=== PATIENT | female | born 1960 | race Caucasian/White ===

== ENCOUNTER → 2017-03-15 | Outpatient (CLI) | payer BC ==
[~2017-03-15] MED LIST: /HCTZ25TA GT; ADV250INH INH; ALBU17IN INH; ALBUPOW9 NEB; ATOR40TA PO; BACL10TA2 PO; BACT800T5 PO; CLAR10CA3 PO; CYCL5TA PO; DETR4CAP PO; DIPH50CA GT; FENO145T PO; FLON0.054; FLUTISP; INSULANT SC; LEVEINJ SC; LIPI20TA PO; LOSA50TA20 PO; METF500T PO; MOBI15TA PO; NIASPAN; NICO21PAT EXT; OMEP40CA2 PO; OMEPPOW18 PO; PRED10TA PO; PRED20TA PO; PRED20TAB PO; PROC5TAB PO; ROBA750T4 PO; SYMB16INH INH; TYLE325T5 PO; VENTOLIN INH; VIBR100C PO; VICO5TA PO; VOLT1GEL24 TD; atrovent INH; ventolin INH
[2017-03-15 06:48] LABS: BASO % 0.5 % (0.0-1.0); EOS # 0.2 K/mm3 (0.0-0.50); EOS % 2.8 % (0.0-3.0); LARGE UNSTAINED CELL # 0.2 K/mm3 (0.0-0.4); LARGE UNSTAINED CELL % 2.2 % (0.0-4.0); LYMPH # 3.2 K/mm3 (1.5-4.5); MEAN CORPUSCULAR HEMOGLOBIN 29.3 pg (27.0-33.0); MONO # 0.5 K/mm3 (0.0-0.8); MONO % 5.7 % (0.0-5.0); NEUTROPHILS # 4.2 K/mm3 (1.8-7.7); NEUTROPHILS % 51.8 % (36.0-66.0); PLATELET COUNT, AUTOMATED 373 k/mm3 (150-450); RED CELL DISTRIBUTION WIDTH 13.3 % (11.5-14.5); WHITE BLOOD COUNT 8.1 K/mm3 (4.0-10.0)
[2017-03-15 10:06] LABS: FOLATE 6.5 NG/ML
== END ==
LOC: M LAB 06:15
PROVIDERS: ATTEND Nurse Practitioner Family
DX: R53.83 Other fatigue (principal)

== ENCOUNTER → 2017-03-23 | Outpatient (REF) | payer BC ==
[2017-03-23 13:12] LABS: ALBUMIN 3.8 GM/DL (3.2-5.2); ALBUMIN/GLOBULIN RATIO 1.23 (1.00-1.93); ALKALINE PHOSPHATASE 70 U/L (45-117); ALT/SGPT 22 U/L (12-78); ANION GAP 4 MEQ/L (8-16); AST/SGOT 14 U/L (15-37); BILIRUBIN,TOTAL 0.4 MG/DL (0.2-1.0); BLOOD UREA NITROGEN 13 MG/DL (7-18); CALCIUM LEVEL 9.3 MG/DL (8.5-10.1); CARBON DIOXIDE LEVEL 32 MEQ/L (21-32); CHLORIDE LEVEL 105 MEQ/L (98-107); CHOLESTEROL LEVEL 173 MG/DL (<200); CREATININE FOR GFR 0.87 MG/DL (0.55-1.02); GLOMERULAR FILTRATION RATE > 60.0 (>51); GLUCOSE, FASTING 111 MG/DL (70-105); SODIUM LEVEL 141 MEQ/L (136-145); TOTAL PROTEIN 6.9 GM/DL (6.4-8.2); TRIGLYCERIDES LEVEL 137 MG/DL (<150)
[2017-03-23 13:20] LABS: POTASSIUM SERUM 5.3 MEQ/L (3.5-5.1)
== END ==
LOC: M SFHCPLAZ 08:27
PROVIDERS: ATTEND Nurse Practitioner Family
DX: E11.49 Type 2 diabetes mellitus with other diabetic neurological complication (principal); E78.2 Mixed hyperlipidemia

== ENCOUNTER 2017-04-13 16:06 | Emergency (ER) | payer BC ==
[~2017-04-13] VITALS: Ht 165.1 cm; Wt 77.6 kg
[~2017-04-13 16:06] MED LIST changes: -ATOR40TA PO; +ATOR40TA75 PO; -METF500T PO; +METF500T13 PO; +VOLT1GEL15 TD; -VOLT1GEL24 TD
[2017-04-13] MEDS ORDERED: DOXY100C (16:23)
[2017-04-13] MEDS ORDERED: CITA10TA5 (16:23)
[2017-04-13] MEDS ORDERED: VITA1CAP40 (16:23)
[2017-04-13] MEDS ORDERED: FURO20TA2 (16:23)
[2017-04-13] MEDS ORDERED: FLUC150T (16:23)
[2017-04-13] MEDS ORDERED: FOLI800T (16:23)
[2017-04-13] MEDS ORDERED: TRAZ-136 (16:23)
[2017-04-13] MEDS ORDERED: ACETAMINOPHEN 325 MG/10.15 ML UDC PO ONE (17:15)
[2017-04-13] MEDS ORDERED: ONDANSETRON 4MG/2ML VIAL (J2405) IV ONE (17:15)
[2017-04-13] MEDS ORDERED: NS 500 ML IV ONE (17:15)
[2017-04-13 17:34] LABS: BASO # 0.1 K/mm3 (0.0-0.2); BASO % 0.9 % (0.0-1.0); EOS # 0.1 K/mm3 (0.0-0.50); EOS % 1.5 % (0.0-3.0); LARGE UNSTAINED CELL # 0.2 K/mm3 (0.0-0.4); LARGE UNSTAINED CELL % 2.4 % (0.0-4.0); LYMPH # 4.1 K/mm3 (1.5-4.5); LYMPH % 43.6 % (24.0-44.0); MEAN CORPUSCULAR HEMOGLOBIN 28.8 pg (27.0-33.0); MEAN CORPUSCULAR HGB CONC 33.2 g/dl (32.0-36.5); MEAN CORPUSCULAR VOLUME 86.9 fl (80.0-96.0); MONO # 0.3 K/mm3 (0.0-0.8); MONO % 3.5 % (0.0-5.0); NEUTROPHILS # 4.5 K/mm3 (1.8-7.7); NEUTROPHILS % 48.1 % (36.0-66.0); PLATELET COUNT, AUTOMATED 346 k/mm3 (150-450); RED CELL DISTRIBUTION WIDTH 12.7 % (11.5-14.5); WHITE BLOOD COUNT 9.3 K/mm3 (4.0-10.0)
[2017-04-13 17:37] LABS: INR 0.92
[2017-04-13 17:41] LABS: ALBUMIN 3.8 GM/DL (3.2-5.2); ALBUMIN/GLOBULIN RATIO 1.27 (1.00-1.93); ALKALINE PHOSPHATASE 78 U/L (45-117); ALT/SGPT 26 U/L (12-78); ANION GAP 5 MEQ/L (8-16); AST/SGOT 21 U/L (15-37); BILIRUBIN,DIRECT 0.1 MG/DL (0.0-0.2); BILIRUBIN,TOTAL 0.4 MG/DL (0.2-1.0); BLOOD UREA NITROGEN 7 MG/DL (7-18); CALCIUM LEVEL 9.1 MG/DL (8.5-10.1); CARBON DIOXIDE LEVEL 31 MEQ/L (21-32); CHLORIDE LEVEL 107 MEQ/L (98-107); CREATININE FOR GFR 1.06 MG/DL (0.55-1.02); GLOMERULAR FILTRATION RATE 57.5 (>51); GLUCOSE, FASTING 112 MG/DL (70-105); SODIUM LEVEL 143 MEQ/L (136-145); TOTAL PROTEIN 6.8 GM/DL (6.4-8.2)
--- NOTE | 2017-04-13 17:52 | REP ---
Chest x-ray: Two views: History: Chest pain. Comparison chest x-ray 10/25/2015. Findings: EKG monitoring elect monitoring electrodes are seen. Dorsal column stimulator electrodes are also noted with one extending into the cervical and two electrodes visible in the thoracic canal as before. The heart is not enlarged. Lungs are well inflated and clear. The pleural angles are sharp. Pulmonary vasculature is not increased. There are minimal degenerative changes in the thoracic spine. No significant bony abnormality is seen. There are clips in right upper quadrant of the abdomen. Impression: No active cardiopulmonary disease. Cervical and thoracic dorsal column stimulator leads noted. Signed by Cyril Saldana MD 04/13/2017 06:21 P
[2017-04-13] MEDS ORDERED: ISOVUE-370 76% 100ML VIAL (Q9967) As Ordered ONE (18:23)
--- NOTE | 2017-04-13 19:40 | REPUSA ---
CLINICAL HISTORY: Upper abdominal pain and vomiting. TECHNIQUE: Multiple axial CT images were obtained through the abdomen and pelvis after administratio n of IV contrast material. FINDINGS: There is hepatic hypoattenuation compatible with fatty infiltration. There is no intra or extrahepat ic biliary ductal dilatation. Multiple calcified splenic and hepatic calcified granulomas are noted compatible with prior granulomatous disease. Status post cholecystectomy. The pancreas is of felipe l contour and attenuation characteristics. There is no evidence of adrenal mass. The kidneys are normal in size, shape and configuration. A 5 mm nonobstructing calculus is noted in the midpole of the left kidney. There is no hydroureter or hydronephrosis. There is no evidence for appendicitis. There is circumferential wall thickening involving all small bowel segments compatible with enteritis. Infectious and inflammatory etiologies considered. No ev idence for small or large bowel obstruction. There is no evidence of abdominal ascites or lymphadeno preeti. There is no evidence of intrinsic or extrinsic bladder mass. There is no pelvic ascites or lymphaden opathy. Status post complete hysterectomy. Images of the lung bases show no evidence of pleural or parenchymal mass. There are no pleural effus ions. The bony structures are free of lytic or blastic lesions. IMPRESSION: 1. Enteritis. Infectious and inflammatory etiologies considered. Consider consultation with GI serv ice. 2. Fatty liver. 3. Prior granulomatous disease. 4. 5 mm nonobstructing calculus is noted in the midpole of the left kidney. Thank you for your kind referral of this patient. We appreciate the opportunity to participate in thi s patient's care.
--- NOTE | 2017-04-13 19:40 | REPUSA ---
CLINICAL HISTORY: Chest pain. TECHNIQUE: Multiple incremental axial, coronal and oblique images are obtained from the thoracic inle t to the upper abdomen. Intravenous contrast material was administered as per pulmonary embolism prot ocol. COMMENTS: Multiple calcified splenic granulomas are present in the kidneys. A 5 mm calculus is noted in the mi dpole of the left kidney. The patient is status post cholecystectomy. There is excellent opacification of pulmonary arterial system without evidence for pulmonary embolism . Aorta is of normal caliber without evidence for dissection or aneurysm. There is no evidence of pleural or parenchymal mass. There are no pleural effusions. There is no evid ence of hilar or mediastinal lymphadenopathy. The heart and great vessels are within normal limits. Images of the upper abdomen demonstrate no evidence of adrenal mass. The bony structures are free of lytic or blastic lesions. Multilevel degenerative changes are seen in volving the visualized thoracolumbar spine. There are intraspinal electrodes noted at the thoracic l evels. Scattered calcifications are seen involving the aorta and major branches compatible with atherosclero sis. IMPRESSION: 1. No evidence for pulmonary embolism. 2. Multiple calcified splenic granulomas are present in the kidneys. A 5 mm calculus is noted in th e midpole of the left kidney. 3. The patient is status post cholecystectomy. 4. There are intraspinal electrodes noted at the thoracic levels. Thank you for your kind referral of this patient. We appreciate the opportunity to participate in thi s patient's care.
--- NOTE | 2017-04-13 22:06 | ECGEPIP ---
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
[2017-04-13] MEDS ORDERED: ZOFR4TAB3 PO (23:14)
[2017-04-13] MEDS ORDERED: NORCO 5/325MG TABLET (BULK FOR ED) PO ONE (23:30)
[2017-04-13 23:54] VITALS: BP 128/72
--- NOTE | 2017-04-14 07:10 | ECGEPIP ---
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
--- NOTE | 2017-04-14 14:57 | ED PDOC ---
Post-Departure Follow-Up leda overton faxed formal report of ct abd/p for fu Sherrie Llanos MD Apr 14, 2017 14:57
== END 2017-04-13 23:48 | disposition home or self-care (01) ==
LOC: M ED 16:06
DX: K52.9 Noninfective gastroenteritis and colitis, unspecified (principal); E11.9 Type 2 diabetes mellitus without complications; I10 Essential (primary) hypertension; J44.9 Chronic obstructive pulmonary disease, unspecified; J45.909 Unspecified asthma, uncomplicated; F41.9 Anxiety disorder, unspecified; F32.9 Major depressive disorder, single episode, unspecified; E78.9 Disorder of lipoprotein metabolism, unspecified; G47.30 Sleep apnea, unspecified; G90.50 Complex regional pain syndrome I, unspecified; F17.200 Nicotine dependence, unspecified, uncomplicated; Z96.9 Presence of functional implant, unspecified; Z88.8 Allergy status to other drugs, medicaments and biological substances; Z88.5 Allergy status to narcotic agent; Z88.1 Allergy status to other antibiotic agents; Z88.0 Allergy status to penicillin; Z91.040 Latex allergy status; Z79.899 Other long term (current) drug therapy; Z79.84 Long term (current) use of oral hypoglycemic drugs; Z79.2 Long term (current) use of antibiotics
CPT/HCPCS: 36415; 71020; 71275; 74177; 80048; 80076; 82550; 82553; 83690; 83880; 85025; 85610; 85730; 93005; 93041; 94760; 96361; 96374; 99285; J2405; Q9967

== ENCOUNTER → 2017-04-15 | Outpatient (REF) | payer BC ==
[~2017-04-15] MED LIST changes: +CITA10TA5; +DOXY100C; +FLUC150T; +FOLI800T; +FURO20TA2; +NORCOTAB PO; +TRAZ-136; +VITA1CAP40; +ZOFR4TAB3 PO
== END ==
LOC: M SFHCPLAZ 13:49
PROVIDERS: ATTEND Nurse Practitioner Family
DX: R10.13 Epigastric pain (principal); K21.9 Gastro-esophageal reflux disease without esophagitis

== ENCOUNTER → 2017-04-18 | Outpatient (CLI) | payer BC ==
--- NOTE | 2017-04-18 12:42 | REP ---
Supine abdomen two views: Comparison is 03/31/2008. The bowel gas pattern is normal. There are surgical clips in the right upper quadrant, unchanged. There is a small calcification projected over the left kidney, unchanged. There are surgical clips superimposed over the pelvis on the right, not present previously. There are two spinal stimulators is one at the mid thoracic spine level and the other at the lower thoracic spine level, not present previously. Signed by Kurtis Nolen MD 04/18/2017 12:34 P
== END ==
LOC: M RAD 11:26
PROVIDERS: ATTEND Family Medicine
DX: A04.8 Other specified bacterial intestinal infections (principal); Z96.698 Presence of other orthopedic joint implants

== ENCOUNTER → 2017-05-04 | Outpatient (CLI) | payer BC ==
--- NOTE | 2017-05-04 17:24 | REP ---
REASON: Pain and swelling. TECHNIQUE: Multiple ultrasonographic images of the deep venous structures of the left thigh were obtained from the common femoral vein to the popliteal vein along with Doppler interrogation and color flow Doppler images. FINDINGS: There is no abnormal echogenic material seen within any of the visualized deep venous structures that would suggest acute thrombosis. Coaptation is unremarkable throughout. Doppler interrogation shows an expected response to respiratory variability and augmentation. The color flow images show what appears to be a normal vascular pattern throughout. IMPRESSION: There is no ultrasonographic evidence of deep venous thrombosis involving any of the visualized deep venous structures of the left thigh, as described above. Signed by Wayne Bradley DO 05/05/2017 10:41 A
== END ==
LOC: M RAD 15:39
PROVIDERS: ATTEND Nurse Practitioner Family
DX: R60.0 Localized edema (principal)

== ENCOUNTER → 2017-05-10 | Outpatient (REF) | payer BC ==
[2017-05-10 17:21] LABS: ANION GAP 8 MEQ/L (8-16); BLOOD UREA NITROGEN 6 MG/DL (7-18); CALCIUM LEVEL 9.7 MG/DL (8.5-10.1); CARBON DIOXIDE LEVEL 33 MEQ/L (21-32); CHLORIDE LEVEL 101 MEQ/L (98-107); CREATININE FOR GFR 0.74 MG/DL (0.55-1.02); GLOMERULAR FILTRATION RATE > 60.0 (>51); GLUCOSE, FASTING 104 MG/DL (70-105); SODIUM LEVEL 142 MEQ/L (136-145)
== END ==
LOC: M SFHCPLAZ 11:07
PROVIDERS: ATTEND Nurse Practitioner Family
DX: R60.0 Localized edema (principal)

== ENCOUNTER → 2017-06-10 | Outpatient (CLI) | payer BC ==
[2017-06-10 11:13] LABS: BASO % 0.4 % (0.0-1.0); EOS # 0.2 K/mm3 (0.0-0.50); EOS % 1.9 % (0.0-3.0); LARGE UNSTAINED CELL # 0.2 K/mm3 (0.0-0.4); LARGE UNSTAINED CELL % 1.8 % (0.0-4.0); LYMPH # 3.3 K/mm3 (1.5-4.5); LYMPH % 38.5 % (24.0-44.0); MEAN CORPUSCULAR HEMOGLOBIN 29.6 pg (27.0-33.0); MEAN CORPUSCULAR HGB CONC 33.5 g/dl (32.0-36.5); MEAN CORPUSCULAR VOLUME 88.2 fl (80.0-96.0); MONO # 0.2 K/mm3 (0.0-0.8); MONO % 2.8 % (0.0-5.0); NEUTROPHILS # 4.7 K/mm3 (1.8-7.7); NEUTROPHILS % 54.4 % (36.0-66.0); PLATELET COUNT, AUTOMATED 326 k/mm3 (150-450); RED CELL DISTRIBUTION WIDTH 13.4 % (11.5-14.5); WHITE BLOOD COUNT 8.6 K/mm3 (4.0-10.0)
--- NOTE | 2017-06-10 11:18 | REP ---
Clinical: Chronic obstructive pulmonary disease with acute shortness of breath . Comparison: 04/13/2017 . Technique: PA and lateral. Findings: The mediastinum and cardiac silhouette are normal. The lung mcdonough are clear and without acute consolidation, effusion, or pneumothorax. The skeletal structures are intact and normal. Impression: 1. No acute cardiopulmonary process. Signed by Rickie Harmon MD 06/10/2017 11:09 A
[2017-06-10 12:09] LABS: ANION GAP 9 MEQ/L (8-16); BLOOD UREA NITROGEN 8 MG/DL (7-18); CALCIUM LEVEL 9.5 MG/DL (8.5-10.1); CARBON DIOXIDE LEVEL 30 MEQ/L (21-32); CHLORIDE LEVEL 106 MEQ/L (98-107); CREATININE FOR GFR 0.79 MG/DL (0.55-1.02); GLOMERULAR FILTRATION RATE > 60.0 (>51); GLUCOSE, FASTING 181 MG/DL (70-105); POTASSIUM SERUM 4.1 MEQ/L (3.5-5.1); SODIUM LEVEL 145 MEQ/L (136-145)
== END ==
LOC: M LAB 10:39
PROVIDERS: ATTEND Nurse Practitioner Family
DX: J44.1 Chronic obstructive pulmonary disease with (acute) exacerbation (principal)

== ENCOUNTER → 2017-06-10 | Outpatient (REF) | payer BC | LOC: M SFHCPLAZ 09:41 | PROVIDERS: ATTEND Nurse Practitioner Family | DX: Z53.8 Procedure and treatment not carried out for other reasons (principal) ==

== ENCOUNTER 2017-07-14 11:03 | Emergency (ER) | payer BC ==
[~2017-07-14] VITALS: Ht 160 cm; Wt 79.5 kg
[~2017-07-14 11:03] MED LIST changes: -NORCOTAB PO
--- NOTE | 2017-07-14 12:07 | REP ---
CT Head without contrast HISTORY: Trauma COMPARISON: 11/20/2015 There is no intraparenchymal hemorrhage, acute infarct, mass or midline shift. The ventricular system is normal in appearance. The cortical sulci are dilated consistent with minimal volume loss. There is no extra cerebral collection. There is no fracture. The visualized sinuses are clear. IMPRESSION: Minimal volume loss. Signed by Kevan Rosen MD 07/14/2017 11:58 A
--- NOTE | 2017-07-14 12:16 | REP ---
CT CERVICAL SPINE WITHOUT CONTRAST: HISTORY: Trauma. COMPARISON: 11/20/2015. There is no acute fracture or subluxation. Disc bulges with associated osteophyte formation are present at the C4-5 through C6-7 levels. There is minimal narrowing of the spinal canal. Uncinate process and/or facet hypertrophy are present at the C2-3 through C6-7 levels. These findings produce minimal narrowing of the neural foramina. The C4-5 through C6-7 intervertebral discs are decreased in height consistent with disc degeneration. There is loss of the normal lordotic curve. A dorsal column stimulator is present in the spinal canal with the tip at the C3 level. IMPRESSION: 1. There is no acute fracture or subluxation. 2. There is cervical spondylosis at the C2-3 through C6-7 levels. Signed by Kevan Rosen MD 07/14/2017 12:17 P
--- NOTE | 2017-07-14 12:25 | REP ---
UNILATERAL RIGHT RIBS, PA CHEST: HISTORY: Trauma. The lungs are clear. The heart is normal in size. The pulmonary vasculature is normal in appearance. The bony structure is intact. Dorsal column stimulators are present in the cervical and thoracic spine. IMPRESSION: No acute disease. Signed by Kevan Rosen MD 07/14/2017 12:28 P
--- NOTE | 2017-07-14 12:26 | REP ---
RIGHT HIP AND PELVIS, THREE VIEWS: HISTORY: Trauma. There is on acute fracture or dislocation. There is narrowing of the joint spaces. IMPRESSION: There is no acute fracture or dislocation. Signed by Kevan Rosen MD 07/14/2017 12:27 P
[2017-07-14] MEDS ORDERED: NORCOTAB PO (12:36)
[2017-07-14 12:41] VITALS: BP 118/78
== END 2017-07-14 12:48 | disposition home or self-care (01) ==
LOC: M ED 11:03
DX: S20.211A Contusion of right front wall of thorax, initial encounter (principal); S70.01XA Contusion of right hip, initial encounter; S06.0X0A Concussion without loss of consciousness, initial encounter; W10.9XXA Fall (on) (from) unspecified stairs and steps, initial encounter; Y92.019 Unspecified place in single-family (private) house as the place of occurrence of the external cause; Y93.89 Activity, other specified; Y99.8 Other external cause status; I10 Essential (primary) hypertension; E11.9 Type 2 diabetes mellitus without complications; G90.50 Complex regional pain syndrome I, unspecified; F33.9 Major depressive disorder, recurrent, unspecified; F17.210 Nicotine dependence, cigarettes, uncomplicated; Z79.899 Other long term (current) drug therapy; Z79.82 Long term (current) use of aspirin; Z79.84 Long term (current) use of oral hypoglycemic drugs; Z88.5 Allergy status to narcotic agent; Z88.1 Allergy status to other antibiotic agents; Z88.0 Allergy status to penicillin; Z91.040 Latex allergy status; Z88.8 Allergy status to other drugs, medicaments and biological substances

== ENCOUNTER → 2017-08-16 | Outpatient (REF) | payer BC ==
[~2017-08-16] MED LIST changes: +NORCOTAB PO
== END ==
LOC: M SFHCWAGY 09:44
PROVIDERS: ATTEND Nurse Practitioner Women's Health
DX: R87.610 Atypical squamous cells of undetermined significance on cytologic smear of cervix (ASC-US) (principal)

== ENCOUNTER → 2017-08-16 | Outpatient (CLI) | payer BC ==
--- NOTE | 2017-08-16 10:56 | REPMRS ---
Patient History The patient states she had a clinical breast exam in 08/2017. Patient is postmenopausal. Family history of prostate cancer in father at age 50 or over, colorectal cancer in father at age 50 or over, and colorectal cancer in 2 paternal aunts. Taking estrogen for 2 years. Digital Woman Screen Mammo: August 16, 2017 - Exam #: [id number] Bilateral CC and MLO view(s) were taken. Technologist: Elizabeth Ozuna, Technologist Prior study comparison: August 10, 2016, digital woman screen mammo performed at [facility]. July 09, 2015, digital woman screen mammo performed at [facility]. FINDINGS: There are scattered fibroglandular densities. There has been no change in the appearance of the mammogram from the prior studies. There is a mild amount of residual fibroglandular tissue which is fairly symmetric. There is no interval development of dominant mass, architectural distortion, or clustered microcalcification suggestive of malignancy. ASSESSMENT: BI-RADS/ACR category 1 mammogram. Negative. Recommendation Routine screening mammogram in 1 year (for women over age 40). This mammogram was interpreted with the aid of an FDA-approved computer-aided dectection system. Electronically Signed By: Kurtis Bolivar MD 08/16/17 0022
== END ==
LOC: M WHC 08:47
PROVIDERS: ATTEND Nurse Practitioner Women's Health
DX: Z12.31 Encounter for screening mammogram for malignant neoplasm of breast (principal)

== ENCOUNTER 2017-09-30 10:54 | Emergency (ER) | payer BC ==
[2017-09-30] MEDS: AZITHROMYCIN 250 MG TAB PO (12:38)
== END 2017-09-30 12:38 | disposition home or self-care (01) ==
LOC: M ED 10:54
DX: J44.0 Chronic obstructive pulmonary disease with (acute) lower respiratory infection (principal); H66.92 Otitis media, unspecified, left ear; I10 Essential (primary) hypertension; E11.9 Type 2 diabetes mellitus without complications; E78.70 Disorder of bile acid and cholesterol metabolism, unspecified; F17.210 Nicotine dependence, cigarettes, uncomplicated; Z79.899 Other long term (current) drug therapy; Z79.84 Long term (current) use of oral hypoglycemic drugs; Z88.8 Allergy status to other drugs, medicaments and biological substances; Z88.5 Allergy status to narcotic agent; Z88.0 Allergy status to penicillin; Z91.040 Latex allergy status; Z97.8 Presence of other specified devices; Z87.09 Personal history of other diseases of the respiratory system
CPT/HCPCS: 71020

== ENCOUNTER 2017-12-03 14:39 | Emergency (ER) | payer BC ==
[2017-12-03] MEDS: ACETAMINOPHEN 325 MG TAB PO (17:28)
== END 2017-12-03 19:01 | disposition home or self-care (01) ==
LOC: M ED 14:39
DX: M54.17 Radiculopathy, lumbosacral region (principal); M54.14 Radiculopathy, thoracic region; Z79.899 Other long term (current) drug therapy; Z79.84 Long term (current) use of oral hypoglycemic drugs; Z88.8 Allergy status to other drugs, medicaments and biological substances; Z88.5 Allergy status to narcotic agent; Z88.1 Allergy status to other antibiotic agents; Z91.040 Latex allergy status; Z88.0 Allergy status to penicillin
CPT/HCPCS: 72110

== ENCOUNTER → 2018-01-26 | Outpatient (CLI) | payer MEDICAID ==
[2018-01-26 07:35] LABS: BASO # 0.1 10^3/uL (0.0-0.2); BASO % 0.5 % (0.0-1.0); EOS # 0.3 10^3/uL (0.0-0.50); EOS % 2.5 % (0.0-3.0); HEMATOCRIT 43.1 % (36.0-47.0); HEMOGLOBIN 14.3 g/dl (12.0-15.5); IMMATURE GRANULOCYTE % 0.3 % (0-3.0); MEAN CORPUSCULAR HEMOGLOBIN 29.5 pg (27.0-33.0); MEAN CORPUSCULAR HGB CONC 33.2 g/dl (32.0-36.5); MEAN CORPUSCULAR VOLUME 88.9 fl (80.0-96.0); MONO # 0.5 10^3/uL (0.0-0.8); MONO % 5.4 % (0.0-5.0); NEUTROPHILS # 5.1 10^3/uL (1.8-7.7); NEUTROPHILS % 51.3 % (36.0-66.0); PLATELET COUNT, AUTOMATED 378 10^3/uL (150-450); RED BLOOD COUNT 4.85 10^6/uL (4.00-5.40); RED CELL DISTRIBUTION WIDTH 13.9 % (11.5-14.5); WHITE BLOOD COUNT 9.9 10^3/uL (4.0-10.0)
[2018-01-26 08:03] LABS: ESTIMATED AVERAGE GLUCOSE 140 MG/DL (60-110); HEMOGLOBIN A1c 6.5 %
[2018-01-26 08:07] LABS: ALBUMIN 3.9 GM/DL (3.2-5.2); ALBUMIN/GLOBULIN RATIO 1.15 (1.00-1.93); ALKALINE PHOSPHATASE 73 U/L (45-117); ALT/SGPT 19 U/L (12-78); ANION GAP 6 MEQ/L (8-16); AST/SGOT 15 U/L (7-37); BILIRUBIN,TOTAL 0.8 MG/DL (0.2-1.0); BLOOD UREA NITROGEN 15 MG/DL (7-18); CALCIUM LEVEL 9.4 MG/DL (8.5-10.1); CARBON DIOXIDE LEVEL 30 MEQ/L (21-32); CHLORIDE LEVEL 104 MEQ/L (98-107); CHOLESTEROL LEVEL 267 MG/DL (<200); CHOLESTEROL RISK RATIO 5.235 (<5); CREATININE FOR GFR 0.78 MG/DL (0.55-1.30); GLOMERULAR FILTRATION RATE > 60.0 (>51); GLUCOSE, FASTING 93 MG/DL (70-100); HDL CHOLESTEROL 51 MG/DL (>40); LDL CHOLESTEROL 161.4 MG/DL (<100); NON-HDL-C 216 MG/DL; POTASSIUM SERUM 4.4 MEQ/L (3.5-5.1); SODIUM LEVEL 140 MEQ/L (136-145); THYROID STIMULATING HORMONE 0.716 uIU/ML (0.358-3.740); THYROXINE (T4) 15.6 UG/DL (4.5-12.0); TOTAL PROTEIN 7.3 GM/DL (6.4-8.2); TRIGLYCERIDES LEVEL 273 MG/DL (<150)
[2018-01-26 08:08] LABS: MALB URINE SIEMENS 23.2 MG/L
[2018-01-26 09:39] LABS: TOTAL 25(OH) VITAMIN D 15.1 NG/ML (30.0-100.0)
[2018-01-26 09:40] LABS: VITAMIN B12 LEVEL 144 PG/ML (247-911)
== END ==
LOC: M LAB 06:46
DX: I10 Essential (primary) hypertension (principal); E11.69 Type 2 diabetes mellitus with other specified complication; F32.9 Major depressive disorder, single episode, unspecified; G47.33 Obstructive sleep apnea (adult) (pediatric); D53.8 Other specified nutritional anemias; D55.9 Anemia due to enzyme disorder, unspecified
CPT/HCPCS: 93005

== ENCOUNTER → 2018-01-27 | Outpatient (CLI) | payer MEDICAID | LOC: M EKG 09:35 | DX: I10 Essential (primary) hypertension (principal) | CPT/HCPCS: 93005 ==

== ENCOUNTER → 2018-02-02 | Outpatient (REF) | payer MEDICAID ==
[2018-02-02 14:59] LABS: ERYTHROCYTE SEDIMENTATION RATE 15 mm/hr (0-30)
[2018-02-02 15:05] LABS: C REACTIVE PROTEIN QUANTITATIV < 0.30 MG/DL (0.00-0.30)
[2018-02-03 14:13] LABS: ANTINUCLEAR ANTIBODIES DIRECT Negative (Negative)
== END ==
LOC: M LAB REF 14:00
DX: G90.50 Complex regional pain syndrome I, unspecified (principal)

== ENCOUNTER → 2018-02-14 | Outpatient (CLI) | payer MEDICAID | LOC: M PAIN 12:30 | DX: M79.1 Myalgia (principal); M54.6 Pain in thoracic spine; M54.5 Low back pain; G89.29 Other chronic pain; E11.9 Type 2 diabetes mellitus without complications; K21.9 Gastro-esophageal reflux disease without esophagitis; G43.909 Migraine, unspecified, not intractable, without status migrainosus; J44.9 Chronic obstructive pulmonary disease, unspecified; I10 Essential (primary) hypertension; G47.30 Sleep apnea, unspecified; F32.9 Major depressive disorder, single episode, unspecified; F41.9 Anxiety disorder, unspecified; F17.210 Nicotine dependence, cigarettes, uncomplicated; Z79.84 Long term (current) use of oral hypoglycemic drugs; Z79.899 Other long term (current) drug therapy; Z88.6 Allergy status to analgesic agent; Z88.5 Allergy status to narcotic agent; Z88.8 Allergy status to other drugs, medicaments and biological substances; Z91.040 Latex allergy status; Z86.39 Personal history of other endocrine, nutritional and metabolic disease | CPT/HCPCS: G0463 ==

== ENCOUNTER → 2018-02-23 | Outpatient (CLI) | payer MEDICAID ==
[~2018-02-23] MED LIST changes: -/HCTZ25TA GT; -ADV250INH INH; -ALBU17IN INH; -ALBUPOW9 NEB; -ATOR40TA75 PO; -BACL10TA2 PO; -BACT800T5 PO; +BUPIVACAINE HCL 0.25% 10 ML VIAL As Ordered; +BUPIVACAINE HCL 0.25% 30 ML VIAL As Ordered; -CITA10TA5; -CLAR10CA3 PO; -CYCL5TA PO; -DETR4CAP PO; -DIPH50CA GT; -DOXY100C; -FENO145T PO; -FLON0.054; -FLUC150T; -FLUTISP; -FOLI800T; -FURO20TA2; -INSULANT SC; -LEVEINJ SC; -LIPI20TA PO; -LOSA50TA20 PO; -METF500T13 PO; -MOBI15TA PO; -NIASPAN; -NICO21PAT EXT; -NORCOTAB PO; -OMEP40CA2 PO; -OMEPPOW18 PO; -PRED10TA PO; -PRED20TA PO; -PRED20TAB PO; -PROC5TAB PO; -ROBA750T4 PO; -SYMB16INH INH; -TRAZ-136; +TRIAMCINOLONE ACETONIDE SUSP 40 MG/ML VIAL (J3301) As Ordered; -TYLE325T5 PO; -VENTOLIN INH; -VIBR100C PO; -VICO5TA PO; -VITA1CAP40; -VOLT1GEL15 TD; -ZOFR4TAB3 PO; -atrovent INH; +diazePAM 5 MG TAB As Ordered; +oxyCODONE 5MG TAB As Ordered; -ventolin INH
== END ==
LOC: M PAIN 10:00
DX: G89.29 Other chronic pain (principal); M54.6 Pain in thoracic spine; M54.5 Low back pain; M79.1 Myalgia; E11.9 Type 2 diabetes mellitus without complications; J44.9 Chronic obstructive pulmonary disease, unspecified; E78.2 Mixed hyperlipidemia; G43.909 Migraine, unspecified, not intractable, without status migrainosus; I10 Essential (primary) hypertension; G47.33 Obstructive sleep apnea (adult) (pediatric); F32.9 Major depressive disorder, single episode, unspecified; F41.9 Anxiety disorder, unspecified; F17.210 Nicotine dependence, cigarettes, uncomplicated; Z79.84 Long term (current) use of oral hypoglycemic drugs; Z79.899 Other long term (current) drug therapy; Z88.5 Allergy status to narcotic agent; Z88.6 Allergy status to analgesic agent; Z88.8 Allergy status to other drugs, medicaments and biological substances; Z91.040 Latex allergy status
CPT/HCPCS: J3301

== ENCOUNTER → 2018-03-17 | Outpatient (CLI) | payer OTHER, MEDICAID | LOC: M PAIN 09:15 | DX: M79.1 Myalgia (principal); M54.6 Pain in thoracic spine; M54.5 Low back pain; G89.29 Other chronic pain; E11.9 Type 2 diabetes mellitus without complications; K21.9 Gastro-esophageal reflux disease without esophagitis; E78.5 Hyperlipidemia, unspecified; G43.909 Migraine, unspecified, not intractable, without status migrainosus; J44.9 Chronic obstructive pulmonary disease, unspecified; J45.909 Unspecified asthma, uncomplicated; I10 Essential (primary) hypertension; G47.33 Obstructive sleep apnea (adult) (pediatric); F32.9 Major depressive disorder, single episode, unspecified; F41.9 Anxiety disorder, unspecified; E03.9 Hypothyroidism, unspecified; F17.210 Nicotine dependence, cigarettes, uncomplicated; Z79.84 Long term (current) use of oral hypoglycemic drugs; Z79.899 Other long term (current) drug therapy; Z88.5 Allergy status to narcotic agent; Z88.6 Allergy status to analgesic agent; Z88.8 Allergy status to other drugs, medicaments and biological substances; Z91.040 Latex allergy status | CPT/HCPCS: G0463 ==

== ENCOUNTER → 2018-04-06 | Outpatient (CLI) | payer OTHER, MEDICAID | LOC: M PAIN 14:30 | DX: M79.7 Fibromyalgia (principal); E11.9 Type 2 diabetes mellitus without complications; K21.9 Gastro-esophageal reflux disease without esophagitis; E78.5 Hyperlipidemia, unspecified; G43.909 Migraine, unspecified, not intractable, without status migrainosus; J44.9 Chronic obstructive pulmonary disease, unspecified; I10 Essential (primary) hypertension; G47.33 Obstructive sleep apnea (adult) (pediatric); F32.9 Major depressive disorder, single episode, unspecified; F41.9 Anxiety disorder, unspecified; F17.210 Nicotine dependence, cigarettes, uncomplicated; Z79.84 Long term (current) use of oral hypoglycemic drugs; Z79.899 Other long term (current) drug therapy; Z88.5 Allergy status to narcotic agent; Z88.6 Allergy status to analgesic agent; Z88.8 Allergy status to other drugs, medicaments and biological substances; Z91.040 Latex allergy status | CPT/HCPCS: G0463 ==

== ENCOUNTER → 2018-04-10 | Outpatient (CLI) | payer OTHER, MEDICAID ==
[~2018-04-10] MED LIST changes: +MIDAZOLAM INJ 2 MG/2 ML VIAL (J2250) As Ordered; -diazePAM 5 MG TAB As Ordered; +diphenhydrAMINE 25 MG CAP As Ordered; +fentaNYL 100 MCG/2 ML INJECTION (J3010) As Ordered; -oxyCODONE 5MG TAB As Ordered
== END ==
LOC: M PAIN 08:30
DX: G89.29 Other chronic pain (principal); M79.1 Myalgia; M54.6 Pain in thoracic spine; M54.5 Low back pain; E11.9 Type 2 diabetes mellitus without complications; J44.9 Chronic obstructive pulmonary disease, unspecified; K21.9 Gastro-esophageal reflux disease without esophagitis; E78.5 Hyperlipidemia, unspecified; G43.909 Migraine, unspecified, not intractable, without status migrainosus; I10 Essential (primary) hypertension; G47.33 Obstructive sleep apnea (adult) (pediatric); F32.9 Major depressive disorder, single episode, unspecified; F41.9 Anxiety disorder, unspecified; E03.9 Hypothyroidism, unspecified; F17.210 Nicotine dependence, cigarettes, uncomplicated; Z79.84 Long term (current) use of oral hypoglycemic drugs; Z79.899 Other long term (current) drug therapy; Z88.5 Allergy status to narcotic agent; Z88.6 Allergy status to analgesic agent; Z88.8 Allergy status to other drugs, medicaments and biological substances; Z91.040 Latex allergy status; Z91.81 History of falling
CPT/HCPCS: J3301

== ENCOUNTER → 2018-05-05 | Outpatient (CLI) | payer OTHER, MEDICAID | LOC: M PAIN 09:00 | DX: M79.1 Myalgia (principal); M96.1 Postlaminectomy syndrome, not elsewhere classified; M47.814 Spondylosis without myelopathy or radiculopathy, thoracic region; G89.29 Other chronic pain; E11.9 Type 2 diabetes mellitus without complications; J45.909 Unspecified asthma, uncomplicated; K21.9 Gastro-esophageal reflux disease without esophagitis; G43.909 Migraine, unspecified, not intractable, without status migrainosus; I10 Essential (primary) hypertension; G47.33 Obstructive sleep apnea (adult) (pediatric); F32.9 Major depressive disorder, single episode, unspecified; F41.9 Anxiety disorder, unspecified; E03.9 Hypothyroidism, unspecified; F17.210 Nicotine dependence, cigarettes, uncomplicated; Z79.84 Long term (current) use of oral hypoglycemic drugs; Z79.899 Other long term (current) drug therapy; Z88.1 Allergy status to other antibiotic agents; Z88.5 Allergy status to narcotic agent; Z88.6 Allergy status to analgesic agent; Z88.8 Allergy status to other drugs, medicaments and biological substances; Z91.040 Latex allergy status | CPT/HCPCS: G0463 ==

== ENCOUNTER → 2018-05-18 | Outpatient (CLI) | payer OTHER, MEDICAID | LOC: M PAIN 11:45 | DX: M79.1 Myalgia (principal); M96.1 Postlaminectomy syndrome, not elsewhere classified; M47.814 Spondylosis without myelopathy or radiculopathy, thoracic region; E11.9 Type 2 diabetes mellitus without complications; J45.909 Unspecified asthma, uncomplicated; E78.2 Mixed hyperlipidemia; G43.909 Migraine, unspecified, not intractable, without status migrainosus; J44.9 Chronic obstructive pulmonary disease, unspecified; F17.210 Nicotine dependence, cigarettes, uncomplicated; I10 Essential (primary) hypertension; G47.33 Obstructive sleep apnea (adult) (pediatric); F32.9 Major depressive disorder, single episode, unspecified; F41.9 Anxiety disorder, unspecified; E05.90 Thyrotoxicosis, unspecified without thyrotoxic crisis or storm; Z79.1 Long term (current) use of non-steroidal anti-inflammatories (NSAID); Z79.84 Long term (current) use of oral hypoglycemic drugs; Z79.899 Other long term (current) drug therapy; Z88.5 Allergy status to narcotic agent; Z88.6 Allergy status to analgesic agent; Z88.8 Allergy status to other drugs, medicaments and biological substances | CPT/HCPCS: G0463 ==

== ENCOUNTER → 2018-06-26 | Outpatient (REF) | payer OTHER, MEDICAID ==
[2018-06-26 18:53] LABS: ALBUMIN 4.1 GM/DL (3.2-5.2); ALBUMIN/GLOBULIN RATIO 1.21 (1.00-1.93); ALKALINE PHOSPHATASE 73 U/L (45-117); ALT/SGPT 16 U/L (12-78); ANION GAP 11 MEQ/L (8-16); AST/SGOT 13 U/L (7-37); BILIRUBIN,TOTAL 0.7 MG/DL (0.2-1.0); BLOOD UREA NITROGEN 5 MG/DL (7-18); CALCIUM LEVEL 9.6 MG/DL (8.5-10.1); CARBON DIOXIDE LEVEL 28 MEQ/L (21-32); CHLORIDE LEVEL 104 MEQ/L (98-107); CREATININE FOR GFR 0.71 MG/DL (0.55-1.30); FREE THYROXINE INDEX 4.9 % (1.3-4.8); GLOMERULAR FILTRATION RATE > 60.0 (>51); GLUCOSE, FASTING 114 MG/DL (70-100); POTASSIUM SERUM 3.9 MEQ/L (3.5-5.1); SODIUM LEVEL 143 MEQ/L (136-145); T UPTAKE 31 % (30-39); THYROID STIMULATING HORMONE 0.231 uIU/ML (0.358-3.740); THYROXINE (T4) 15.8 UG/DL (4.5-12.0); TOTAL PROTEIN 7.5 GM/DL (6.4-8.2)
[2018-06-26 18:59] LABS: APPEARANCE, URINE HAZY (CLEAR); BACTERIA, URINE AUTO 1+ (NEGATIVE); BILIRUBIN, URINE AUTO NEGATIVE (NEGATIVE); BLOOD, URINE BLOOD NEGATIVE (NEGATIVE); COLOR, URINE YELLOW (YELLOW); GLUCOSE, URINE (UA) AUTO NEGATIVE (NEGATIVE); KETONE, URINE AUTO NEGATIVE (NEGATIVE); LEUKOCYTE ESTERASE, URINE AUTO 3+ (NEGATIVE); MUCUS, URINE SMALL (NEGATIVE); NITRITE, URINE AUTO NEGATIVE (NEGATIVE); PROTEIN, URINE AUTO NEGATIVE (NEGATIVE); RBC, URINE AUTO 5 /HPF (0-3); SPECIFIC GRAVITY URINE AUTO 1.011 (1.002-1.035); SQUAMOUS EPITHELIAL CELL UR AU 1 /HPF (0-6); UROBILINOGEN, URINE AUTO 0.2 mg/dL (0.0-2.0); WBC, URINE AUTO 21 /HPF (0-3)
== END ==
LOC: M LAB REF 17:07
DX: F43.12 Post-traumatic stress disorder, chronic (principal)

== ENCOUNTER → 2018-06-29 | Outpatient (CLI) | payer OTHER | LOC: M RAD 12:58 | DX: M79.1 Myalgia (principal) | CPT/HCPCS: 72114 ==

== ENCOUNTER → 2018-06-29 | Outpatient (CLI) | payer OTHER, MEDICAID | LOC: M PAIN 11:45 | DX: M79.1 Myalgia (principal); M96.1 Postlaminectomy syndrome, not elsewhere classified; M47.814 Spondylosis without myelopathy or radiculopathy, thoracic region; E11.9 Type 2 diabetes mellitus without complications; J45.909 Unspecified asthma, uncomplicated; K21.9 Gastro-esophageal reflux disease without esophagitis; E78.2 Mixed hyperlipidemia; G43.909 Migraine, unspecified, not intractable, without status migrainosus; J44.9 Chronic obstructive pulmonary disease, unspecified; G90.513 Complex regional pain syndrome I of upper limb, bilateral; I10 Essential (primary) hypertension; G47.33 Obstructive sleep apnea (adult) (pediatric); F32.9 Major depressive disorder, single episode, unspecified; F41.9 Anxiety disorder, unspecified; F17.210 Nicotine dependence, cigarettes, uncomplicated; Z79.84 Long term (current) use of oral hypoglycemic drugs; Z79.899 Other long term (current) drug therapy; Z88.5 Allergy status to narcotic agent; Z88.6 Allergy status to analgesic agent; Z88.8 Allergy status to other drugs, medicaments and biological substances; Z91.040 Latex allergy status; Z88.0 Allergy status to penicillin | CPT/HCPCS: G0463 ==

== ENCOUNTER 2018-07-14 09:05 | Emergency (ER) | payer OTHER ==
[2018-07-14] MEDS: NS 1,000 ML IV (09:37)
[2018-07-14] MEDS: ONDANSETRON 4MG/2ML VIAL (J2405) IV (09:37)
[2018-07-14 09:47] LABS: BASO # 0.1 10^3/uL (0.0-0.2); BASO % 0.4 % (0.0-1.0); EOS # 0.2 10^3/uL (0.0-0.50); EOS % 1.4 % (0.0-3.0); HEMATOCRIT 40.2 % (36.0-47.0); HEMOGLOBIN 13.4 g/dl (12.0-15.5); IMMATURE GRANULOCYTE % 0.3 % (0-3.0); LYMPH # 3.9 10^3/uL (1.5-4.5); LYMPH % 29.6 % (24.0-44.0); MEAN CORPUSCULAR HEMOGLOBIN 30.5 pg (27.0-33.0); MEAN CORPUSCULAR HGB CONC 33.3 g/dl (32.0-36.5); MEAN CORPUSCULAR VOLUME 91.4 fl (80.0-96.0); MONO # 0.8 10^3/uL (0.0-0.8); MONO % 6.1 % (0.0-5.0); NEUTROPHILS # 8.2 10^3/uL (1.8-7.7); NEUTROPHILS % 62.2 % (36.0-66.0); PLATELET COUNT, AUTOMATED 289 10^3/uL (150-450); RED CELL DISTRIBUTION WIDTH 13.2 % (11.5-14.5); WHITE BLOOD COUNT 13.1 10^3/uL (4.0-10.0)
[2018-07-14] MEDS: MORPHINE 4 MG/ML 1ML VIAL/SYRINGE (J2270) IV ×2 (09:47→11:00)
[2018-07-14 10:14] LABS: ALBUMIN 3.5 GM/DL (3.2-5.2); ALBUMIN/GLOBULIN RATIO 1.25 (1.00-1.93); ALKALINE PHOSPHATASE 60 U/L (45-117); ALT/SGPT 15 U/L (12-78); ANION GAP 8 MEQ/L (8-16); AST/SGOT 13 U/L (7-37); BILIRUBIN,DIRECT 0.3 MG/DL (0.0-0.2); BILIRUBIN,TOTAL 0.8 MG/DL (0.2-1.0); BLOOD UREA NITROGEN 7 MG/DL (7-18); CALCIUM LEVEL 9.2 MG/DL (8.5-10.1); CARBON DIOXIDE LEVEL 32 MEQ/L (21-32); CHLORIDE LEVEL 103 MEQ/L (98-107); CREATININE FOR GFR 0.71 MG/DL (0.55-1.30); GLOMERULAR FILTRATION RATE > 60.0 (>51); GLUCOSE, FASTING 80 MG/DL (70-100); LIPASE 95 U/L (73-393); POTASSIUM SERUM 4.1 MEQ/L (3.5-5.1); SODIUM LEVEL 143 MEQ/L (136-145); TOTAL PROTEIN 6.3 GM/DL (6.4-8.2)
[2018-07-14] MEDS ORDERED: ISOVUE-370 76% 100ML VIAL (Q9967) As Ordered (10:34)
== END 2018-07-14 12:58 | disposition home or self-care (01) ==
LOC: M ED 09:05
DX: K43.0 Incisional hernia with obstruction, without gangrene (principal); R11.10 Vomiting, unspecified; R50.9 Fever, unspecified; B37.3 Candidiasis of vulva and vagina; E11.9 Type 2 diabetes mellitus without complications; I10 Essential (primary) hypertension; J45.909 Unspecified asthma, uncomplicated; J44.9 Chronic obstructive pulmonary disease, unspecified; F17.210 Nicotine dependence, cigarettes, uncomplicated; Z88.6 Allergy status to analgesic agent; Z88.8 Allergy status to other drugs, medicaments and biological substances; Z88.1 Allergy status to other antibiotic agents; Z88.5 Allergy status to narcotic agent; Z91.040 Latex allergy status; Z88.0 Allergy status to penicillin; Z79.899 Other long term (current) drug therapy; Z79.84 Long term (current) use of oral hypoglycemic drugs; Z79.51 Long term (current) use of inhaled steroids
CPT/HCPCS: J2270

== ENCOUNTER → 2018-07-24 | Outpatient (CLI) | payer OTHER, MEDICAID | LOC: M PAIN 13:15 | DX: M79.18 Myalgia, other site (principal); M96.1 Postlaminectomy syndrome, not elsewhere classified; M47.814 Spondylosis without myelopathy or radiculopathy, thoracic region; E11.9 Type 2 diabetes mellitus without complications; J45.909 Unspecified asthma, uncomplicated; E78.5 Hyperlipidemia, unspecified; G43.909 Migraine, unspecified, not intractable, without status migrainosus; J44.9 Chronic obstructive pulmonary disease, unspecified; I10 Essential (primary) hypertension; E03.9 Hypothyroidism, unspecified; G47.33 Obstructive sleep apnea (adult) (pediatric); F32.9 Major depressive disorder, single episode, unspecified; F41.9 Anxiety disorder, unspecified; F17.210 Nicotine dependence, cigarettes, uncomplicated; Z79.84 Long term (current) use of oral hypoglycemic drugs; Z79.899 Other long term (current) drug therapy; Z88.5 Allergy status to narcotic agent; Z88.6 Allergy status to analgesic agent; Z88.8 Allergy status to other drugs, medicaments and biological substances; Z91.040 Latex allergy status | CPT/HCPCS: G0463 ==

== ENCOUNTER → 2018-08-09 | Outpatient (CLI) | payer OTHER | LOC: M RAD 11:35 | DX: Z01.818 Encounter for other preprocedural examination (principal); Z96.89 Presence of other specified functional implants | CPT/HCPCS: 71046 ==

== ENCOUNTER → 2018-08-09 | Outpatient (REF) | payer OTHER ==
[2018-08-09 13:25] LABS: BASO # 0.1 10^3/uL (0.0-0.2); BASO % 0.7 % (0.0-1.0); EOS # 0.3 10^3/uL (0.0-0.50); EOS % 2.5 % (0.0-3.0); HEMATOCRIT 40.5 % (36.0-47.0); HEMOGLOBIN 13.6 g/dl (12.0-15.5); IMMATURE GRANULOCYTE % 0.2 % (0-3.0); LYMPH # 3.5 10^3/uL (1.5-4.5); LYMPH % 33.4 % (24.0-44.0); MEAN CORPUSCULAR HEMOGLOBIN 29.5 pg (27.0-33.0); MEAN CORPUSCULAR HGB CONC 33.6 g/dl (32.0-36.5); MEAN CORPUSCULAR VOLUME 87.9 fl (80.0-96.0); MONO # 0.5 10^3/uL (0.0-0.8); MONO % 4.8 % (0.0-5.0); NEUTROPHILS # 6.1 10^3/uL (1.8-7.7); NEUTROPHILS % 58.4 % (36.0-66.0); PLATELET COUNT, AUTOMATED 354 10^3/uL (150-450); RED BLOOD COUNT 4.61 10^6/uL (4.00-5.40); RED CELL DISTRIBUTION WIDTH 12.4 % (11.5-14.5); WHITE BLOOD COUNT 10.4 10^3/uL (4.0-10.0)
[2018-08-09 13:34] LABS: INR 0.83; PROTHROMBIN TIME 11.4 SECONDS (12.1-14.4)
[2018-08-09 13:50] LABS: ALBUMIN 3.7 GM/DL (3.2-5.2); ALBUMIN/GLOBULIN RATIO 1.19 (1.00-1.93); ALKALINE PHOSPHATASE 85 U/L (45-117); ALT/SGPT 23 U/L (12-78); ANION GAP 6 MEQ/L (8-16); AST/SGOT 17 U/L (7-37); BILIRUBIN,TOTAL 0.5 MG/DL (0.2-1.0); BLOOD UREA NITROGEN 9 MG/DL (7-18); CARBON DIOXIDE LEVEL 31 MEQ/L (21-32); CHLORIDE LEVEL 100 MEQ/L (98-107); CREATININE FOR GFR 0.74 MG/DL (0.55-1.30); GLOMERULAR FILTRATION RATE > 60.0 (>51); GLUCOSE, FASTING 96 MG/DL (70-100); POTASSIUM SERUM 3.9 MEQ/L (3.5-5.1); SODIUM LEVEL 137 MEQ/L (136-145); TOTAL PROTEIN 6.8 GM/DL (6.4-8.2)
== END ==
LOC: M LAB REF 13:02
DX: Z01.812 Encounter for preprocedural laboratory examination (principal)
CPT/HCPCS: 80053

== ENCOUNTER 2018-08-18 05:51 | Day surgery (SDC) | payer OTHER ==
[2018-08-18] MEDS: LR 1,000 ML IV (06:55)
[2018-08-18] MEDS ORDERED: MIDAZOLAM INJ 2 MG/2 ML VIAL (J2250) As Ordered (07:01)
[2018-08-18] MEDS ORDERED: PROPOFOL 200 MG/20 ML VIAL As Ordered (07:02)
[2018-08-18] MEDS ORDERED: ROCURONIUM BROMIDE 50 MG/5 ML VIAL As Ordered (07:02)
[2018-08-18] MEDS ORDERED: fentaNYL 250 MCG/5 ML INJECTION (J3010) As Ordered (07:02)
[2018-08-18] MEDS ORDERED: LIDOCAINE 2% INJ 100 MG/5 ML SDV (FOR ANES.) As Ordered (07:02)
[2018-08-18] MEDS ORDERED: dexameTHASONE 4 MG/ML 1ML VIAL (J1100) As Ordered ×3 (07:02→08:09)
[2018-08-18] MEDS ORDERED: ONDANSETRON 4MG/2ML VIAL (J2405) As Ordered (07:02)
[2018-08-18 07:13] LABS: BEDSIDE GLUCOSE 114 MG/DL (70-105)
[2018-08-18] MEDS: CLINDAMYCIN 600 MG in APPROPRIATE DILUENT 1 EA IV (07:48)
[2018-08-18] MEDS ORDERED: KETOROLAC 60 MG/2 ML VIAL (J1885) As Ordered (08:10)
[2018-08-18] MEDS ORDERED: SUGAMMADEX SODIUM 500 MG/5 ML VIAL (BRIDION) As Ordered (08:12)
[2018-08-18] MEDS: BUPIVACAINE/EPIN 0.25% 30 ML VIAL As Ordered (08:15)
[2018-08-18] MEDS ORDERED: fentaNYL 100 MCG/2 ML INJECTION (J3010) As Ordered (09:06)
[2018-08-18] MEDS: fentaNYL 100 MCG/2 ML INJECTION (J3010) IV ×4 (09:08→09:23)
[2018-08-18] MEDS ORDERED: METOCLOPRAMIDE INJ 10MG/2ML VIAL (J2765) IV (09:15)
[2018-08-18] MEDS ORDERED: LR 1,000 ML IV (09:15)
[2018-08-18] MEDS ORDERED: PERCOCET 5MG/325MG TAB PO (09:15)
[2018-08-18] MEDS ORDERED: ONDANSETRON 4MG/2ML VIAL (J2405) IV (09:15)
[2018-08-18] MEDS ORDERED: MEPERIDINE INJ 25 MG/ML VIAL (J2175) IV (09:15)
[2018-08-18] MEDS ORDERED: NORCO, ANEXSIA 5/325MG TABLET (HYDROcodone/ACETAMINOPHEN) PO (09:30)
== END 2018-08-18 10:40 | disposition home or self-care (01) ==
LOC: M SDC 05:51
DX: N73.6 Female pelvic peritoneal adhesions (postinfective) (principal); I10 Essential (primary) hypertension; J45.909 Unspecified asthma, uncomplicated; F41.9 Anxiety disorder, unspecified; F32.9 Major depressive disorder, single episode, unspecified; E11.9 Type 2 diabetes mellitus without complications; R60.0 Localized edema; K21.9 Gastro-esophageal reflux disease without esophagitis; G90.50 Complex regional pain syndrome I, unspecified; R51 Headache; G62.9 Polyneuropathy, unspecified; F43.10 Post-traumatic stress disorder, unspecified; R06.83 Snoring; G47.30 Sleep apnea, unspecified; R32 Unspecified urinary incontinence; Z88.0 Allergy status to penicillin; Z88.1 Allergy status to other antibiotic agents; Z88.5 Allergy status to narcotic agent; Z88.6 Allergy status to analgesic agent; Z88.8 Allergy status to other drugs, medicaments and biological substances; Z79.899 Other long term (current) drug therapy; Z72.0 Tobacco use; Z90.710 Acquired absence of both cervix and uterus
CPT/HCPCS: 58660

== ENCOUNTER → 2018-09-04 | Outpatient (REF) | payer OTHER, MEDICAID ==
[2018-09-04 14:10] LABS: AMORPHOUS SEDIMENT LARGE (NEGATIVE); APPEARANCE, URINE TURBID (CLEAR); BACTERIA, URINE AUTO NEGATIVE (NEGATIVE); BILIRUBIN, URINE AUTO NEGATIVE (NEGATIVE); BLOOD, URINE BLOOD 1+ (NEGATIVE); COLOR, URINE AMBER (YELLOW); GLUCOSE, URINE (UA) AUTO 1+ mg/dL (NEGATIVE); KETONE, URINE AUTO TRACE mg/dL (NEGATIVE); LEUKOCYTE ESTERASE, URINE AUTO 3+ (NEGATIVE); MUCUS, URINE SMALL (NEGATIVE); NITRITE, URINE AUTO NEGATIVE (NEGATIVE); PROTEIN, URINE AUTO 1+ mg/dL (NEGATIVE); RBC, URINE AUTO 3 /HPF (0-3); SPECIFIC GRAVITY URINE AUTO 1.028 (1.002-1.035); SQUAMOUS EPITHELIAL CELL UR AU 5 /HPF (0-6); WBC, URINE AUTO 47 /HPF (0-3)
== END ==
LOC: M SFHCPLAZ 12:51
DX: Z01.818 Encounter for other preprocedural examination (principal); N39.41 Urge incontinence
CPT/HCPCS: 81001

== ENCOUNTER → 2018-09-14 | Outpatient (REF) | payer OTHER, MEDICAID | LOC: M SMT 13:07 | DX: N39.0 Urinary tract infection, site not specified (principal) | CPT/HCPCS: 87086 ==

== ENCOUNTER → 2018-09-15 | Outpatient (CLI) | payer OTHER ==
[2018-09-15 13:56] LABS: HEMATOCRIT 39.1 % (36.0-47.0); HEMOGLOBIN 12.6 g/dl (12.0-15.5); MEAN CORPUSCULAR HEMOGLOBIN 28.8 pg (27.0-33.0); MEAN CORPUSCULAR HGB CONC 32.2 g/dl (32.0-36.5); MEAN CORPUSCULAR VOLUME 89.3 fl (80.0-96.0); PLATELET COUNT, AUTOMATED 297 10^3/uL (150-450); RED BLOOD COUNT 4.38 10^6/uL (4.00-5.40); RED CELL DISTRIBUTION WIDTH 12.7 % (11.5-14.5); WHITE BLOOD COUNT 9.8 10^3/uL (4.0-10.0)
[2018-09-15 14:08] LABS: INR 0.85; PROTHROMBIN TIME 11.7 SECONDS (12.1-14.4)
[2018-09-15 14:09] LABS: PARTIAL THROMBOPLASTIN TIME 27.6 SECONDS (25.4-37.6)
[2018-09-15 14:17] LABS: ANION GAP 5 MEQ/L (8-16); BLOOD UREA NITROGEN 10 MG/DL (7-18); CALCIUM LEVEL 9.2 MG/DL (8.5-10.1); CARBON DIOXIDE LEVEL 33 MEQ/L (21-32); CHLORIDE LEVEL 103 MEQ/L (98-107); CREATININE FOR GFR 1.08 MG/DL (0.55-1.30); GLOMERULAR FILTRATION RATE 56.1 (>51); SODIUM LEVEL 141 MEQ/L (136-145)
[2018-09-15 14:57] LABS: GLUCOSE, FASTING 169 MG/DL (70-100)
== END ==
LOC: M LAB 12:55
DX: Z01.818 Encounter for other preprocedural examination (principal); N39.41 Urge incontinence
CPT/HCPCS: 80048

== ENCOUNTER 2018-09-19 15:21 | Day surgery (SDC) | payer OTHER ==
[2018-09-19 15:59] LABS: BEDSIDE GLUCOSE 131 MG/DL (70-105)
[2018-09-19] MEDS: LR 1,000 ML IV (16:01)
[2018-09-19] MEDS: CIPROFLOXACIN 400 MG in APPROPRIATE DILUENT 1 EA IV (16:01)
[2018-09-19] MEDS ORDERED: PROPOFOL 200 MG/20 ML VIAL As Ordered (17:22)
[2018-09-19] MEDS ORDERED: MIDAZOLAM INJ 2 MG/2 ML VIAL (J2250) As Ordered (17:22)
[2018-09-19] MEDS ORDERED: fentaNYL 100 MCG/2 ML INJECTION (J3010) As Ordered (17:22)
[2018-09-19] MEDS ORDERED: LIDOCAINE 2% INJ 100 MG/5 ML SDV (FOR ANES.) As Ordered (17:39)
[2018-09-19] MEDS: LIDOCAINE 2% 5ML JELLY UROJET As Ordered (17:45)
[2018-09-19] MEDS: BOTULINUM INJ 100 UNITS (J0585) As Ordered (17:48)
== END 2018-09-19 18:47 | disposition home or self-care (01) ==
LOC: M SDC 18:47
DX: N32.81 Overactive bladder (principal); N39.41 Urge incontinence; R35.0 Frequency of micturition; I10 Essential (primary) hypertension; R07.9 Chest pain, unspecified; R06.02 Shortness of breath; G90.59 Complex regional pain syndrome I of other specified site; L98.8 Other specified disorders of the skin and subcutaneous tissue; E11.9 Type 2 diabetes mellitus without complications; E05.90 Thyrotoxicosis, unspecified without thyrotoxic crisis or storm; J45.909 Unspecified asthma, uncomplicated; K21.9 Gastro-esophageal reflux disease without esophagitis; E78.2 Mixed hyperlipidemia; G43.909 Migraine, unspecified, not intractable, without status migrainosus; J44.9 Chronic obstructive pulmonary disease, unspecified; F41.9 Anxiety disorder, unspecified; F32.9 Major depressive disorder, single episode, unspecified; R06.83 Snoring; G47.30 Sleep apnea, unspecified; Z88.0 Allergy status to penicillin; Z88.1 Allergy status to other antibiotic agents; Z88.5 Allergy status to narcotic agent; Z88.6 Allergy status to analgesic agent; Z88.8 Allergy status to other drugs, medicaments and biological substances; Z79.899 Other long term (current) drug therapy; Z79.84 Long term (current) use of oral hypoglycemic drugs; Z90.710 Acquired absence of both cervix and uterus; Z87.440 Personal history of urinary (tract) infections; Z72.0 Tobacco use
CPT/HCPCS: 52287

== ENCOUNTER → 2018-09-21 | Outpatient (REF) | payer OTHER ==
[~2018-09-21] MED LIST changes: +/HCTZ25TA GT; +ADV250INH INH; +ALBU17IN INH; +ALBUPOW9 NEB; +ATOR40TA75 PO; +AZEL0.1S; +BACL10TA2 PO; +BACT800T5 PO; -BUPIVACAINE HCL 0.25% 10 ML VIAL As Ordered; -BUPIVACAINE HCL 0.25% 30 ML VIAL As Ordered; +CETI10TA PO; +CITA10TA5; +CLAR10CA3 PO; +CYCL5TA PO; +CYMB60CA3 PO; +DETR4CAP PO; +DIFL200T PO; +DIPH50CA GT; +DOXY100C; +ESTR62CR PV; +FENO145T13 PO; +FLON0.054; +FLON1SPR; +FLUC150T TOP; +FLUTISP; +FOLI800T PO; +FURO20TA2 PO; +GLIP5TAB8 PO; +HYDR-3363 PO; +INCR1INH INH; +INSULANT SC; +IPRA0.00 NEB; +LEVEINJ SC; +LIPI20TA PO; +LOSA50TA20 PO; +METF500T13 PO; -MIDAZOLAM INJ 2 MG/2 ML VIAL (J2250) As Ordered; +MOBI15TA PO; +NIASPAN; +NICO21PAT EXT; +NORCOTAB PO; +OMEP40CA2 PO; +OMEPPOW18 PO; +PRED10TA PO; +PRED20TA PO; +PRED20TAB PO; +PROA1AER2; +PROAAER10 INH; +PROC5TAB PO; +ROBA750T4 PO; +SPIR1CAP INH; +SYMB16INH INH; +TIZANIDINE; +TRAZ-163; -TRIAMCINOLONE ACETONIDE SUSP 40 MG/ML VIAL (J3301) As Ordered; +TYLE325T5 PO; +TYLE500T78 PO; +VENTOLIN INH; +VIBR100C PO; +VICO5TA PO; +VITA100072 PO; +VITA50005 PO; +VOLT1GEL15 TD; +ZANA4CAP PO; +ZITHTAB PO; +ZOFR4TAB14 PO; +atrovent INH; -diphenhydrAMINE 25 MG CAP As Ordered; -fentaNYL 100 MCG/2 ML INJECTION (J3010) As Ordered; +ventolin INH
[2018-09-21 17:23] LABS: HEMOGLOBIN A1c 7.7 %
== END ==
LOC: M LAB REF 16:30
PROVIDERS: ATTEND Nurse Practitioner Adult Health
DX: E11.9 Type 2 diabetes mellitus without complications (principal)

== ENCOUNTER → 2018-10-09 | Outpatient (CLI) | payer OTHER ==
--- NOTE | 2018-10-10 02:31 | REP ---
Clinical: COPD and fever . Comparison: 08/09/2018 . Technique: PA and lateral. Findings: The mediastinum and cardiac silhouette are normal. Stimulator devices overlie the cervicothoracic spine and right chest. The lung mcdonough are clear and without acute consolidation, effusion, or pneumothorax. The skeletal structures are intact and normal. Impression: 1. No acute cardiopulmonary process. Electronically Signed by Rickie Harmon MD 10/10/2018 02:23 A
== END ==
LOC: M WUC 18:14
PROVIDERS: ATTEND Physician Assistant
DX: J44.1 Chronic obstructive pulmonary disease with (acute) exacerbation (principal); R50.9 Fever, unspecified

== ENCOUNTER → 2018-10-16 | Outpatient (CLI) | payer OTHER, MEDICAID ==
[~2018-10-16] MED LIST changes: +BUPIVACAINE HCL 0.25% 30 ML VIAL As Ordered ONE; +ISOVUE-M 300 61% 15ML VIAL (Q9967) As Ordered ONE; +LIDOCAINE 1% SDV INJ 30 ML VIAL As Ordered ONE
--- NOTE | 2018-10-16 15:02 | REP ---
Chest two views HISTORY: Pneumothorax Comparison: 10/09/2018 The lungs are clear. The heart is normal in size. The pulmonary vasculature is normal in appearance. The bony structure is intact. Two dorsal column stimulators are present in the spinal canal. IMPRESSION: No acute disease. Electronically Signed by Kevan Rosen MD 10/16/2018 02:54 P
--- NOTE | 2018-10-16 17:12 | REP ---
Partial thoracic spine series: Two views. History: Diagnostic thoracic facet block. 30 seconds of fluoroscopy time is reported. Findings: A sequence of two last image hold fluoroscopically obtained spot radiographs of the thoracic spine document various needle positions and contrast injections associated with facet block procedure. A thoracic dorsal column stimulator lead is also noted. Electronically Signed by Cyril Saldana MD 10/16/2018 08:24 P
--- NOTE | 2018-10-31 01:39 | ECWPNPC ---
PATIENT NAME: LINDSEY PAK : 1960 GENDER: FEMALE VISIT DATE: 10/16/2018 DISCHARGE DATE: 10/16/18 1514 VISIT LOCKED DATE TIME: PHYSICIAN: LAMBERTO PEREIRA MD RESOURCE: LAMBERTO PEREIRA MD REASON FOR APPOINTMENT 1. THORACIC BILATERAL THERAPEUTIC FACET BLOCK T6-7, T7-8. HISTORY OF PRESENT ILLNESS HISTORY OF PRESENT ILLNESS: PAIN THE PATIENT DESCRIBES THE PAIN... FALL RISK SCREENING: SCREENING :NO FALLS IN THE PAST YEAR CURRENT MEDICATIONS TAKING VITAMIN B-12 ER 1000 MCG TABLET EXTENDED RELEASE 1 TABLET ORALLY ONCE A DAY WITH MEAL, NOTES: 10/15/181929 TAKING BLOOD GLUCOSE MONITOR SYSTEM W/DEVICE KIT DX:E11.9 - - TAKING VITAMIN D (ERGOCALCIFEROL) 35369 UNIT CAPSULE 1 CAPSULE ORALLY ONCE WEEKLY WITH MEAL, NOTES: 10/12/18 TAKING BLOOD GLUCOSE TEST DX:E11.9 STRIP 1 IN VITRO FOUR TIMES DAILY FOR FLUCTUATING BLOOD SUGARS TAKING LANCETS DX:E11.9 MISCELLANEOUS - SUBCUTANEOUSLY FOUR TIMES DAILY TAKING FOLIC ACID 800 MCG TABLET 1 TABLET ORALLY ONCE A DAY WITH MEAL, NOTES: 10/15/181929 TAKING AZELASTINE HCL 0.1 % SOLUTION 1 SPRAY IN EACH NOSTRIL NASALLY TWICE A DAY, NOTES: FEW DAYS AGO TAKING PROAIR RESPICLICK 108 (90 BASE) MCG/ACT AEROSOL POWDER BREATH ACTIVATED 1 PUFF NEEDED INHALATION EVERY 4 HRS, NOTES: FEW DAYS AGO TAKING METFORMIN HCL 500 MG TABLET EXTENDED RELEASE 24 HOUR 4 TABLETS WITH MEAL ORALLY DAILY, NOTES: 10/15/181929 TAKING ATORVASTATIN CALCIUM 40 MG TABLET 1 TABLET ORALLY ONCE A DAY, NOTES: 10/15/181929 TAKING OMEPRAZOLE 40 MG CAPSULE DELAYED RELEASE 1 CAPSULE ORALLY TWICE A DAY, NOTES: 10/15/181929 TAKING CETIRIZINE HCL 10 MG TABLET 1 TABLET NEEDED ORALLY ONCE A DAY, NOTES: 10/15/181929 TAKING GLIPIZIDE XL 2.5 MG TABLET EXTENDED RELEASE 24 HOUR 1 TABLET ORALLY ONCE A DAY IF FFS IS >160, NOTES: 10/15/181929 TAKING TYLENOL 8 HOUR 650 MG TABLET EXTENDED RELEASE 1-3 TABS NEEDED ORALLY EVERY 8 HRS, NOTES: FEW DAYS AGO TAKING FUROSEMIDE 20 MG TABLET 2 TABS ORALLY DAILY NEEDED, NOTES: FEW DAYS AGO TAKING PREMARIN 0.625 MG/GM CREAM VAGINAL NEEDED, NOTES: MONTHS AGO TAKING COMPRESSION STOCKINGS 15-20 KNEE HIGH DX BILATERAL LEG EDEMA TOPICAL DAILY, NOTES: WEAR OCC. TAKING DULOXETINE HCL 60 MG CAPSULE DELAYED RELEASE PARTICLES 1 CAPSULE ORALLY ONCE A DAY, NOTES: 10/15/181929 TAKING TIZANIDINE HCL 4 MG TABLET 1 TAB ORALLY BEFORE BEDTIME AND IN NIGHT, NOTES: 1929 TAKING OXYCODONE-ACETAMINOPHEN 5-325 MG TABLET 1 TABLET NEEDED ORALLY EVERY 6 HRS PRN PAIN MDD=2, NOTES: WEEKS AGO TAKING DICLOFENAC SODIUM 50 MG TABLET DELAYED RELEASE 1 TABLET WITH FOOD OR MILK ORALLY BID, NOTES: 10/15/181929 TAKING TRAZODONE HCL 100 MG TABLET 1 TABLET AT BEDTIME ORALLY ONCE A DAY, NOTES: 10/15/181929 TAKING MACROBID 100 MG CAPSULE 1 CAPSULE WITH FOOD ORALLY EVERY 12 HRS, NOTES: 3 DAYS AGO TAKING DIFLUCAN 150 MG TABLET 1 TABLET ORALLY DIRECTED, NOTES: MONTH AGO NOT-TAKING SYMBICORT 160-4.5 MCG/ACT AEROSOL 2 PUFFS INHALATION TWICE A DAY FOR DX: COPD NOT-TAKING FLONASE 50 MCG/ACT SUSPENSION 1 SPRAY IN EACH NOSTRIL NASALLY ONCE A DAY NOT-TAKING MOBIC 7.5 MG TABLET 1 TABLET ORALLY WITH FOOD ONCE A DAY NOT-TAKING FLECTOR 1.3 % PATCH 1 PATCH TO SKIN TRANSDERMAL FOR PAIN TWICE A DAY, NOTES: INSURANCE DIDN'T COVER NOT-TAKING NAPROXEN 500 MG TABLET 1 TABLET WITH FOOD OR MILK NEEDED ORALLY EVERY 12 HRS MEDICATION LIST REVIEWED AND RECONCILED WITH THE PATIENT PAST MEDICAL HISTORY TYPE 2 DIABETES ASTHMA ESOPHAGEAL REFLUX MIXED HYPERLIPIDEMIA MIGRAINE HEADACHE COPD - PFT 11/19 FEV1 = 1.82 RSD BOTH ARMS, ACROSS BACK HYPERTENSION - STRESS ECHO NEG 11/17 THYROIDITIS - EVAL PER DR ROBBINS, RESOLVED 2014 KASIA (OBSTRUCTIVE SLEEP APNEA) DEPRESSION/ ANXIETY HYPERTHYROIDISM ALLERGIES BIAXIN: ? RASH - HAS TAKEN IT SINCE: SIDE EFFECTS OXYCODONE: HIVES: ALLERGY WELLBUTRIN: SEVERE SWELLING: ALLERGY PREGABALIN: SWELLING: ALLERGY NIASPAN: RASH: SIDE EFFECTS NEURONTIN: SWELLING: ALLERGY CODEINE SULFATE: SWELLING: ALLERGY ASPIRIN: HIVES: ALLERGY LISINOPRIL: COUGH: SIDE EFFECTS POWRED IN LATEX GLOVES: SKINS COMES OFF HANDS: ALLERGY ZANTAC: SWELLING: ALLERGY PCN: THROAT SWELLS: ALLERGY LASIX: DIARRHEA: SIDE EFFECTS HYDROCHLOROTHIAZIDE 12.5: RASH: ALLERGY MOBIC: LEG SWELLING: SIDE EFFECTS SURGICAL HISTORY BACK SURGERY RSD 1999 NO PERSONAL OR FHX OF SEVERE REACTION TO ANESTHESIA SHOULDER SURGERY RSD 1999 PARTIAL HYSTERECTOMY 91 BILATERAL ELBOW SURGERY, LEFT CARPAL TUNNEL 05 LASER THERAPY CERVICAL 1999 CHOLECYSTECTOMY - LIANA 08 EGD - DR GUZMAN, NORMAL WITH 12/10,08/14 MEDTRONIC STIMULATOR REPLACED - [facility] 11/14,07/15 LAPAROTOMY R OVARIAN MASS BENIGN 06-15-12 RIGHT CARPAL TUNNEL RELEASE - DR PERRY 04/04/13 ABDOMINAL HERNIA REPAIR - FÁTIMA 11-08-14 COLPOSCOPY WITH GABRIELA 09/01/15 & 10/05/16 CYSTO CYSTO WITH BOTOX 11/12/15 ANAL FISSURE AND FISTULA REPAIR 10-18-16 TUBE AND OVARY REMOVED--SHE IS NOT SURE WHICH SIDE T&A A CHILD RIGHT EYE SURGERY A CHILD HERNIA REPAIR R ABD- ENDED UP JUST REMOVED SCAR TISSUE-DR ZAPATA FAMILY HISTORY FATHER: 60'S YRS, COLON CANCER - METASTATIC , KIDNEY CANCER, LUNG CANCER, PANCREATIC CANCER MOTHER: 50'S YRS, [place], CANCER, THROAT, MULTIPLE SCLEROSIS SIBLINGS: RSD - SISTER, HEART DISEASE - BROTHER DAUGHTER(S): 1 DAUGHTER-DRUG ADDICTION- 1 DAUGHTER-RSD PATERNAL AUNT: COLORECTAL CANCER LATE 30'S, OVARIAN CANCER 8 BROTHER(S) , 4 SISTER(S) . 1 SON(S) , 3 DAUGHTER(S) . FATHER KIDNEY CANCER. SOCIAL HISTORY GENERAL: TOBACCO USE ARE YOU A:CURRENT SMOKER ARE YOU INTERESTED IN QUITTING?THINKING ABOUT QUITTING WAS DOING WELL BUT WITH ALL THE PAIN SHE IS HAVING SHE HAS GONE BACK TO SMOKING TO RELIEVE STRESS. PT REPORTS SHE IS TRYING TO CUT BACK, DECLINES ANY INFORMATION ABOUT CESSATION PREVIOUS QUIT ATTEMPTS?YES, WITHIN THE LAST 6 MONTHS. COUNSELED THE PATIENT ON SMOKING CESSATION, EDUCATION [id number]/14/2019 HOW MANY CIGARETTES A DAY DO YOU SMOKE?11-20 HOW SOON AFTER YOU WAKE UP DO YOU SMOKE YOUR FIRST CIGARETTE?31-60 MIN HOW OFTEN DO YOU SMOKE CIGARETTES?EVERY DAY PATIENT COUNSELED ON THE DANGERS OF TOBACCO USE AND URGED TO QUIT:10/16/2018 LUNG CANCER SCREENING SMOKING STATUS:CURRENT SMOKER IS THE PATIENT BETWEEN THE AGE OF 57 AND 79?NO BMI CARE GOAL FOLLOW-UP ABOVE NORMAL BMI FOLLOW-UPGIVING ENCOURAGEMENT TO EXERCISE ALCOHOL SCREENING DID YOU HAVE A DRINK CONTAINING ALCOHOL IN THE PAST YEAR?NO POINTS0 INTERPRETATIONNEGATIVE RECREATIONAL DRUG USE DRUG USE?NO CAFFEINE CAFFEINE USE?YES COFFEE -2 CUPS A DAY SEXUAL HX HAD SEX IN THE LAST 12 MONTHS (VAGINAL, ORAL, OR ANAL)?NO LMP:POST MENOPAUSE HAVE YOU EVER HAD AN STD?NO HIV / HEP-C SCREENING HIV TEST OFFERED TO PATIENT:YES DATE OFFERED:09/09/2014 TEST ACCEPTED:NO HEP-C TEST OFFERED TO PATIENT:YES DATE OFFERED:09/09/2014 REASON:PATIENT DECLINED TEST ACCEPTED:NO REASON:PATIENT DECLINED HOAHAOISM [id number] NONE LANGUAGE LANGUAGES SPOKEN:YI EDUCATION LEVEL OF EDUCATION:NOT FINISHED COLLEGE LEARNING BARRIERS / SPECIAL NEEDS CHANGE FROM LAST VISIT?NO BARRIERS TO LEARNING?NO HEARING IMPAIRED?NO VISION IMPAIRED?YES COGNITIVELY IMPAIRED?NO :CORRECTIVE LENSES READINESS TO LEARN?YES LEARNING PREFERENCES?NO LEARNING CAPABILITIES PRESENT?YES EMOTIONAL BARRIERS?NO SPECIAL DEVICES?NO 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 OCCUPATION: UNEMPLOYED DUE TO PAIN ISSUES. DIET: DIABETIC, LOW SALT , LOW FAT, LOW CHOLESTEROL. EXERCISE: WALKS DAILY. MARITAL STATUS: . OTHERS AT HOME: SPOUSE. PAIN CLINIC PFS, CLERGY, PUBLIC HEALTH REFERRALS PFS REFERRAL NEEDED?NO CLERGY REFERRAL NEEDED?NO PUBLIC HEALTH REFERRAL NEEDED?NO WAS THE PROVIDER NOTIFIED OF ANY PERTINENT INFO? N/A HAS THE PATIENT BEEN EDUCATED REGARDING HIS/HER PLAN OF CARE?YES HAS THE PATIENT BEEN EDUCATED REGARDING PAIN, THE RISK FOR PAIN, THE IMPORTANCE OF EFFECTIVE PAIN MANAGEMENT, AND THE PAIN ASSESSMENT PROCESS?YES ADVANCE DIRECTIVE ADVANCE DIRECTIVE DISCUSSED WITH PATIENT:YES ABHILASH MENJIVAR [phone] RUSSELL PAK () IS SECONDARY REVIEWED WITH PATIENT 10/16/18 1212 JS. HOSPITALIZATION/MAJOR DIAGNOSTIC PROCEDURE COPD EXACERBATION, UNCONTROLLED DIABETES 05/2014 SURGERY RELATED REVIEW OF SYSTEMS REVIEWED BY: PROVIDER: . CONSTITUTIONAL: ANY CHANGE IN YOUR MEDICAL CONDITION? NO . CHILLS NO . FEVER NO . INFECTION: DO YOU HAVE NEW INFECTIONS? YES, STATES UTI, FINISHED 5 DAY ANTIBIOTIC COURSE 3 DAYS AGO . DO YOU HAVE HISTORY OF MRSA? NO . MUSCULOSKELETAL: ANY NEW PATTERNS OF PAIN OR NUMBNESS? YES, STATES PAIN IS WORSENING AND NEW PAIN TO RIGHT HIP . GASTROENTEROLOGY: ANY NEW CHANGE IN BOWEL CONTROL? NO . GENITOURINARY: ANY NEW CHANGE IN BLADDER CONTROL? NO . IS THERE A CHANCE YOU COULD BE ? NO . HEMATOLOGY/LYMPH: DO YOU TAKE ANY BLOOD THINNERS? (FOR EXAMPLE- COUMADIN, PLAVIX, AGGRENOX, PLATEL, PRADAXA, OR XARELTO) NO . WHEN WAS YOUR LAST DOSE? DATE: TIME: . NEUROLOGY: HAVE YOU FALLEN IN THE PAST 6 MONTHS? YES IN PAST 12 MONTHS, STATES SHE BLACKS OUT AND FALLS FAIRLY OFTEN. FELL ABOUT 2 WEEKS AGO, STATES NO INJURIES, NO ED VISIT . ANY NEW EXTREMITY NUMBNESS OR WEAKNESS? YES - RIGHT HIP . CARDIOLOGY: DO YOU HAVE A PACEMAKER OR DEFIBRILLATOR? NO . RESPIRATORY: HAVE YOU BEEN SICK IN THE PAST WEEK? NO . FEVER NO . FLU LIKE SYMPTOMS? NO . COUGH NO . INTEGUMENTARY: DO YOU HAVE ANY RASHES OR OPEN SORES? NO . ALLERGIC/IMMUNO: ARE YOU ALLERGIC TO SHELLFISH OR IV DYE? NO . ANY NEW ALLERGIES? NO . PSYCHIATRIC: DO YOU HAVE THOUGHTS OF HURTING YOURSELF OR SOMEONE ELSE? NO . ARE YOU ABUSED, NEGLECTED, OR IN AN UNSAFE ENVIRONMENT? NO . ENDOCRINOLOGY: ARE YOU DIABETIC? YES, FSBS 183 AT 11:10 AM . OTHER: DO YOU NEED ANY PRESCRIPTIONS? NO . IF YES, PLEASE LIST: ____ . ANY NEW PROBLEMS WITH YOUR MEDICATIONS? NO . WHEN DID YOU LAST EAT? ____10/15/18 2230 . WHEN DID YOU LAST DRINK? ____10/16/18 0630 . WHAT DID YOU LAST DRINK? ____WATER . NAME OF PERSON DRIVING YOU HOME? ____RUSSELL () . DO YOU HAVE ANY OTHER QUESTIONS OR CONCERNS NO . VITAL SIGNS WT 182.2 LBS, HT 62.5 IN, BMI 32.79 INDEX, BP 169/72 MM HG, HR 83 /MIN, RR 18 /MIN, TEMP 96.6 F, OXYGEN SAT % 98%, BLOOD GLUCOSE LEVEL 183 THIS AM PER PATIENT, SAFE IN ENV? (Y/N) YES, NA INITIALS AW 1112, REVIEWED BY: JS. ASSESSMENTS SPONDYLOSIS OF THORACIC REGION WITHOUT MYELOPATHY OR RADICULOPATHY - M47.814 (PRIMARY) PROCEDURES PN LUMBAR FACET BLOCK DIAGNOSTIC PRE PROCEDURE DIAGNOSIS THORACIC SPONDYLOSIS POST PROCEDURE DIAGNOSIS THORACIC SPONDYLOSIS PROCEDURE BILATERAL T6-T7 AND BILATERAL T7-T8 FACET BLOCK DIAGNOSTIC NUMBER 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 I EVALUATED THE PATIENT AND REVIEWED THE CHART. I WENT OVER THE RISKS, ALTERNATIVES, AND BENEFITS ASSOCIATED WITH THIS PROCEDURE. THE PATIENT WOULD LIKE TO PROCEED AND GAVE CONSENT TO PERFORM THE PROCEDURE. AGREED WITH THE PATIENT WE ARE DOING THIS PROCEDURE TO DETERMINE IF THE PATIENT IS A CANDIDATE FOR A RADIOFREQUENCY ABLATION OF THE FACETS JOINTS. THE PATIENT DENIES UNEXPLAINABLE WEIGHT LOSS, FEVER, CHILLS, OR NEW CHANGES IN URINARY OR BOWEL CONTROL DESCRIPTION OF PROCEDURE THE PATIENT WAS BROUGHT TO THE PROCEDURE ROOM AND PLACED IN THE PRONE POSITION. THE LUMBOSACRAL AREA WAS CLEANED WITH CHLORAPREP SOLUTION AND DRAPED ASEPTICALLY. THE PROCEDURE WAS DONE UNDER STERILE CONDITIONS. I CHECKED LATERALITY AND THE LEVEL WHERE THE PROCEDURE WAS GOING TO BE PERFORMED WITH THE PATIENT AND THE SUPPORTING STAFF AT THE MOMENT OF THE TIME OUT IN THE PROCEDURE ROOM. UNDER FLUOROSCOPIC GUIDANCE, TARGETS WERE SELECTED AT THE INTERSECTION OF THE RIGHT AND LEFT TRANSVERSE PROCESS OF T6, T7, AND T8 WITH ITS RESPECTIVE SUPERIOR ARTICULAR PROCESS. LIDOCAINE WAS USED TO NUMB THE SKIN AND THE SUBCUTANEOUS TISSUE BELOW IT. SPINAL NEEDLE, 22-GAUGE WAS ADVANCED UNDER FLUOROSCOPIC GUIDANCE AND FOLLOWING PATIENT FEEDBACK UNTIL THE TARGETS WERE REACHED. POSITION OF THE NEEDLES WAS VERIFIED WITH AP AND LATERAL VIEWS. AFTER PROPER POSITION OF THE NEEDLES WAS ACHIEVED, ISOVUE-M DYE 30% 0.1 ML WAS INJECTED AT EACH SITE SHOWING ADEQUATE SPREAD OF THE DYE. THEN A SOLUTION OF 0.4 ML OF BUPIVACAINE 0.25% WAS INJECTED AT EACH SITE. THERE WAS NO EVIDENCE OF BLOOD, PARESTHESIA OR CEREBROSPINAL FLUID DURING THE PROCEDURE. THE PATIENT WAS SENT TO THE RECOVERY ROOM. THE PATIENT WAS MOVING THE EXTREMITIES AND DOING WELL. THERE WAS NO COMPLICATION DURING THE PROCEDURE. FLUOROSCOPY TIME WAS 30 SECONDS POST PROCEDURE NOTE THE PATIENT WILL DOCUMENT HIS PAIN LEVEL AND RESPONSE TO THIS PROCEDURE EVERY 30 MINUTES. THE PATIENT WILL BE SEEN IN A FOLLOW UP IN THE NEXT FEW WEEKS. FURTHER DETERMINATION FOR HIS CASE WILL BE DONE AT THE NEXT VISIT. INSTRUCTIONS WERE GIVEN, QUESTIONS WERE ANSWERED, AND THE PATIENT EXPRESSED UNDERSTANDING AND AGREED WITH THE PLAN. I, SITA TEJEDA, DOCUMENTED THE ABOVE INFORMATION ACTING A SCRIBE FOR DR. PEREIRA. I HAVE REVIEWED THE ABOVE DOCUMENT, WRITTEN BY SITA TEJEDA SCRIBJoselo AND I VERIFY THAT IT IS ACCURATE. DIAGNOSTIC IMAGING [facility] FACET BLOCK (PAIN)[id number] PROCEDURE CODES 6045F RADXPS IN END [id number] PXD [id number] INJ PARAVERT F JNT C/T 1 LEV, MODIFIERS: 50 [id number] INJ PARAVERT F JNT C/T 2 LEV, MODIFIERS: 50 DISPOSITION & COMMUNICATION FOLLOW UP 3 WEEKS ELECTRONICALLY SIGNED BY LAMBERTO PEREIRA MD, MD ON 10/30/2018 AT 11:40 AM EST DISCLAIMER : THIS IS A VISIT SUMMARY EXTRACTED FROM THE [employer] CHART. IT IS NOT A COPY OF THE [employer] PROGRESS NOTE. MTDD
== END ==
LOC: M PAIN 11:15
PROVIDERS: ATTEND Anesthesiology
DX: M47.814 Spondylosis without myelopathy or radiculopathy, thoracic region (principal); E11.9 Type 2 diabetes mellitus without complications; J45.909 Unspecified asthma, uncomplicated; K21.9 Gastro-esophageal reflux disease without esophagitis; E78.2 Mixed hyperlipidemia; G43.909 Migraine, unspecified, not intractable, without status migrainosus; J44.9 Chronic obstructive pulmonary disease, unspecified; I10 Essential (primary) hypertension; F17.210 Nicotine dependence, cigarettes, uncomplicated; G47.33 Obstructive sleep apnea (adult) (pediatric); F32.9 Major depressive disorder, single episode, unspecified; F41.9 Anxiety disorder, unspecified; E05.90 Thyrotoxicosis, unspecified without thyrotoxic crisis or storm; G90.513 Complex regional pain syndrome I of upper limb, bilateral; Z90.49 Acquired absence of other specified parts of digestive tract; Z79.84 Long term (current) use of oral hypoglycemic drugs; Z79.899 Other long term (current) drug therapy; Z88.5 Allergy status to narcotic agent; Z88.6 Allergy status to analgesic agent; Z88.8 Allergy status to other drugs, medicaments and biological substances; Z91.040 Latex allergy status
CPT/HCPCS: 64490; 64491; 71046; Q9967

== ENCOUNTER → 2018-10-25 | Outpatient (REF) | payer OTHER, MEDICAID ==
[~2018-10-25] MED LIST changes: -BUPIVACAINE HCL 0.25% 30 ML VIAL As Ordered ONE; -ISOVUE-M 300 61% 15ML VIAL (Q9967) As Ordered ONE; -LIDOCAINE 1% SDV INJ 30 ML VIAL As Ordered ONE
[2018-10-25 12:13] LABS: APPEARANCE, URINE HAZY (CLEAR); BACTERIA, URINE AUTO 1+ (NEGATIVE); BILIRUBIN, URINE AUTO NEGATIVE (NEGATIVE); BLOOD, URINE BLOOD 1+ (NEGATIVE); COLOR, URINE YELLOW (YELLOW); GLUCOSE, URINE (UA) AUTO NEGATIVE (NEGATIVE); KETONE, URINE AUTO NEGATIVE (NEGATIVE); LEUKOCYTE ESTERASE, URINE AUTO 3+ (NEGATIVE); NITRITE, URINE AUTO NEGATIVE (NEGATIVE); PROTEIN, URINE AUTO NEGATIVE (NEGATIVE); RBC, URINE AUTO 5 /HPF (0-3); SPECIFIC GRAVITY URINE AUTO 1.004 (1.002-1.035); SQUAMOUS EPITHELIAL CELL UR AU 1 /HPF (0-6); UROBILINOGEN, URINE AUTO 0.2 mg/dL (0.0-2.0); WBC, URINE AUTO TNTC /HPF (0-3)
== END ==
LOC: M SMT 11:31
PROVIDERS: ATTEND Nurse Practitioner Women's Health
DX: N39.46 Mixed incontinence (principal); R30.0 Dysuria

== ENCOUNTER → 2018-11-07 | Outpatient (CLI) | payer OTHER, MEDICAID ==
--- NOTE | 2018-11-13 23:52 | ECWPNPC ---
PATIENT NAME: LINDSEY PAK : 1960 GENDER: FEMALE VISIT DATE: 11/07/2018 DISCHARGE DATE: 11/07/18 1113 VISIT LOCKED DATE TIME: PHYSICIAN: LINDSEY YEAGER RESOURCE: LINDSEY YEAGER REASON FOR APPOINTMENT 1. POST PROCEDURE HISTORY OF PRESENT ILLNESS HISTORY OF PRESENT ILLNESS: HERE FOR POST PROCEDURE F/U.HAD BILATERAL T6/7--T7/8 DX FACET BLOCK.REPORTS NO IMPROVEMENT AND SOME AGGREVATION.HX OF CHRONIC BACK PAIN.HAD EXACERBATION OF GENERALIZED BACK PAIN AFTER FALLING AND HITTING BACK 1 YEAR AGO.HAS 2 DCS ONE FOR UPPER BACK AND BILAT. ARMS AND ONE FOR BILAT. LEG AND FEET.HAS COVERAGE [employer] FOR DCS LOW BACK.HAS [employer] FOR UPPER DCS.RATING PAIN VAS 8/10.DESCRIBES PAIN CONTINUOUS,ACHING AND BURNING. PAIN THE PATIENT DESCRIBES THE PAIN... FALL RISK SCREENING: SCREENING :NO FALLS IN THE PAST YEAR CURRENT MEDICATIONS TAKING VITAMIN B-12 ER 1000 MCG TABLET EXTENDED RELEASE 1 TABLET ORALLY ONCE A DAY WITH MEAL, NOTES: 10/15/181929 TAKING BLOOD GLUCOSE MONITOR SYSTEM W/DEVICE KIT DX:E11.9 - - TAKING VITAMIN D (ERGOCALCIFEROL) 31880 UNIT CAPSULE 1 CAPSULE ORALLY ONCE WEEKLY WITH MEAL, NOTES: 10/12/18 TAKING BLOOD GLUCOSE TEST DX:E11.9 STRIP 1 IN VITRO FOUR TIMES DAILY FOR FLUCTUATING BLOOD SUGARS TAKING LANCETS DX:E11.9 MISCELLANEOUS - SUBCUTANEOUSLY FOUR TIMES DAILY TAKING FOLIC ACID 800 MCG TABLET 1 TABLET ORALLY ONCE A DAY WITH MEAL, NOTES: 10/15/181929 TAKING AZELASTINE HCL 0.1 % SOLUTION 1 SPRAY IN EACH NOSTRIL NASALLY TWICE A DAY, NOTES: FEW DAYS AGO TAKING PROAIR RESPICLICK 108 (90 BASE) MCG/ACT AEROSOL POWDER BREATH ACTIVATED 1 PUFF NEEDED INHALATION EVERY 4 HRS, NOTES: FEW DAYS AGO TAKING METFORMIN HCL 500 MG TABLET EXTENDED RELEASE 24 HOUR 4 TABLETS WITH MEAL ORALLY DAILY, NOTES: 10/15/181929 TAKING ATORVASTATIN CALCIUM 40 MG TABLET 1 TABLET ORALLY ONCE A DAY, NOTES: 10/15/181929 TAKING OMEPRAZOLE 40 MG CAPSULE DELAYED RELEASE 1 CAPSULE ORALLY TWICE A DAY, NOTES: 10/15/181929 TAKING CETIRIZINE HCL 10 MG TABLET 1 TABLET NEEDED ORALLY ONCE A DAY, NOTES: 10/15/181929 TAKING GLIPIZIDE XL 5 MG TABLET EXTENDED RELEASE 24 HOUR 1 TABLET ORALLY ONCE A DAY IF FFS IS >160, NOTES: 10/15/181929 TAKING TYLENOL 8 HOUR 650 MG TABLET EXTENDED RELEASE 1-3 TABS NEEDED ORALLY EVERY 8 HRS, NOTES: FEW DAYS AGO TAKING FUROSEMIDE 20 MG TABLET 2 TABS ORALLY DAILY NEEDED, NOTES: FEW DAYS AGO TAKING PREMARIN 0.625 MG/GM CREAM VAGINAL NEEDED, NOTES: MONTHS AGO TAKING COMPRESSION STOCKINGS 15-20 KNEE HIGH DX BILATERAL LEG EDEMA TOPICAL DAILY, NOTES: WEAR OCC. TAKING DULOXETINE HCL 60 MG CAPSULE DELAYED RELEASE PARTICLES 1 CAPSULE ORALLY ONCE A DAY, NOTES: 10/15/181929 TAKING TIZANIDINE HCL 4 MG TABLET 1 TAB ORALLY BEFORE BEDTIME AND IN NIGHT, NOTES: 1929 TAKING DICLOFENAC SODIUM 50 MG TABLET DELAYED RELEASE 1 TABLET WITH FOOD OR MILK ORALLY BID, NOTES: 10/15/181929 TAKING TRAZODONE HCL 150 MG TABLET 1 TABLET AT BEDTIME ORALLY ONCE A DAY, NOTES: 10/15/181929 NOT-TAKING OXYCODONE-ACETAMINOPHEN 5-325 MG TABLET 1 TABLET NEEDED ORALLY EVERY 6 HRS PRN PAIN MDD=2, NOTES: WEEKS AGO NOT-TAKING PYRIDIUM 200 MG TABLET 1 TABLET AFTER MEALS ORALLY THREE TIMES A DAY NOT-TAKING MACROBID 100 MG CAPSULE 1 CAPSULE WITH FOOD ORALLY EVERY 12 HRS NOT-TAKING MACROBID 100 MG CAPSULE 1 CAPSULE WITH FOOD ORALLY EVERY 12 HRS, NOTES: 3 DAYS AGO NOT-TAKING DIFLUCAN 150 MG TABLET 1 TABLET ORALLY DIRECTED, NOTES: MONTH AGO NOT-TAKING SYMBICORT 160-4.5 MCG/ACT AEROSOL 2 PUFFS INHALATION TWICE A DAY FOR DX: COPD NOT-TAKING FLONASE 50 MCG/ACT SUSPENSION 1 SPRAY IN EACH NOSTRIL NASALLY ONCE A DAY NOT-TAKING MOBIC 7.5 MG TABLET 1 TABLET ORALLY WITH FOOD ONCE A DAY NOT-TAKING FLECTOR 1.3 % PATCH 1 PATCH TO SKIN TRANSDERMAL FOR PAIN TWICE A DAY, NOTES: INSURANCE DIDN'T COVER NOT-TAKING NAPROXEN 500 MG TABLET 1 TABLET WITH FOOD OR MILK NEEDED ORALLY EVERY 12 HRS MEDICATION LIST REVIEWED AND RECONCILED WITH THE PATIENT PAST MEDICAL HISTORY TYPE 2 DIABETES ASTHMA ESOPHAGEAL REFLUX MIXED HYPERLIPIDEMIA MIGRAINE HEADACHE COPD - PFT 11/19 FEV1 = 1.82 RSD BOTH ARMS, ACROSS BACK HYPERTENSION - STRESS ECHO NEG 2/15 THYROIDITIS - EVAL PER DR ROBBINS, RESOLVED 2014 KASIA (OBSTRUCTIVE SLEEP APNEA) DEPRESSION/ ANXIETY HYPERTHYROIDISM ALLERGIES BIAXIN: ? RASH - HAS TAKEN IT SINCE: SIDE EFFECTS OXYCODONE: HIVES: ALLERGY WELLBUTRIN: SEVERE SWELLING: ALLERGY PREGABALIN: SWELLING: ALLERGY NIASPAN: RASH: SIDE EFFECTS NEURONTIN: SWELLING: ALLERGY CODEINE SULFATE: SWELLING: ALLERGY ASPIRIN: HIVES: ALLERGY LISINOPRIL: COUGH: SIDE EFFECTS POWRED IN LATEX GLOVES: SKINS COMES OFF HANDS: ALLERGY ZANTAC: SWELLING: ALLERGY PCN: THROAT SWELLS: ALLERGY LASIX: DIARRHEA: SIDE EFFECTS HYDROCHLOROTHIAZIDE 12.5: RASH: ALLERGY MOBIC: LEG SWELLING: SIDE EFFECTS SURGICAL HISTORY BACK SURGERY RSD 1999 NO PERSONAL OR FHX OF SEVERE REACTION TO ANESTHESIA SHOULDER SURGERY RSD 1999 PARTIAL HYSTERECTOMY 91 BILATERAL ELBOW SURGERY, LEFT CARPAL TUNNEL 05 LASER THERAPY CERVICAL 1999 CHOLECYSTECTOMY - LIANA 08 EGD - DR GUZMAN, NORMAL WITH 12/10,08/14 [employer]PLACED - [facility] 11/14,07/15 LAPAROTOMY R OVARIAN MASS BENIGN 06-15-12 RIGHT CARPAL TUNNEL RELEASE - DR PERRY 04/04/13 ABDOMINAL HERNIA REPAIR - FÁTIMA 11-08-14 COLPOSCOPY WITH GABRIELA 09/01/15 & 10/05/16 CYSTO CYSTO WITH BOTOX 11/12/15 ANAL FISSURE AND FISTULA REPAIR 10-18-16 TUBE AND OVARY REMOVED--SHE IS NOT SURE WHICH SIDE T&A A CHILD RIGHT EYE SURGERY A CHILD HERNIA REPAIR R ABD- ENDED UP JUST REMOVED SCAR TISSUE-DR ZAPATA BOTOX BLADDER INJECTIONS 09/2018 FAMILY HISTORY FATHER: 60'S YRS, COLON CANCER - METASTATIC , KIDNEY CANCER, LUNG CANCER, PANCREATIC CANCER MOTHER: 50'S YRS, [place], CANCER, THROAT, MULTIPLE SCLEROSIS SIBLINGS: RSD - SISTER, HEART DISEASE - BROTHER DAUGHTER(S): 1 DAUGHTER-DRUG ADDICTION- 1 DAUGHTER-RSD PATERNAL AUNT: COLORECTAL CANCER LATE 30'S, OVARIAN CANCER 8 BROTHER(S) , 4 SISTER(S) . 1 SON(S) , 3 DAUGHTER(S) . FATHER KIDNEY CANCER. SOCIAL HISTORY GENERAL: TOBACCO USE ARE YOU A:CURRENT SMOKER ARE YOU INTERESTED IN QUITTING?THINKING ABOUT QUITTING WAS DOING WELL BUT WITH ALL THE PAIN SHE IS HAVING SHE HAS GONE BACK TO SMOKING TO RELIEVE STRESS. PT REPORTS SHE IS TRYING TO CUT BACK, DECLINES ANY INFORMATION ABOUT CESSATION PT IS DOWN TO 5 CIGS/DAY. PREVIOUS QUIT ATTEMPTS?YES, WITHIN THE LAST 6 MONTHS. COUNSELED THE PATIENT ON SMOKING CESSATION, EDUCATION [id number]/05/2019 HOW MANY CIGARETTES A DAY DO YOU SMOKE?5 OR LESS HOW SOON AFTER YOU WAKE UP DO YOU SMOKE YOUR FIRST CIGARETTE?31-60 MIN HOW OFTEN DO YOU SMOKE CIGARETTES?EVERY DAY PATIENT COUNSELED ON THE DANGERS OF TOBACCO USE AND URGED TO QUIT:11/07/2018 LUNG CANCER SCREENING SMOKING STATUS:CURRENT SMOKER IS THE PATIENT BETWEEN THE AGE OF 57 AND 79?NO BMI CARE GOAL FOLLOW-UP ABOVE NORMAL BMI FOLLOW-UPGIVING ENCOURAGEMENT TO EXERCISE ALCOHOL SCREENING DID YOU HAVE A DRINK CONTAINING ALCOHOL IN THE PAST YEAR?NO POINTS0 INTERPRETATIONNEGATIVE RECREATIONAL DRUG USE DRUG USE?NO CAFFEINE CAFFEINE USE?YES COFFEE -2 CUPS A DAY SEXUAL HX HAD SEX IN THE LAST 12 MONTHS (VAGINAL, ORAL, OR ANAL)?NO HAVE YOU EVER HAD AN STD?NO LMP:POST MENOPAUSE HIV / HEP-C SCREENING HIV TEST OFFERED TO PATIENT:YES DATE OFFERED:09/09/2014 TEST ACCEPTED:NO REASON:PATIENT DECLINED HEP-C TEST OFFERED TO PATIENT:YES DATE OFFERED:09/09/2014 TEST ACCEPTED:NO REASON:PATIENT DECLINED ANGLICAN [id number] NONE LANGUAGE LANGUAGES SPOKEN:SLOVENIAN EDUCATION LEVEL OF EDUCATION:NOT FINISHED COLLEGE LEARNING BARRIERS / SPECIAL NEEDS CHANGE FROM LAST VISIT?NO BARRIERS TO LEARNING?NO HEARING IMPAIRED?NO VISION IMPAIRED?YES :CORRECTIVE LENSES COGNITIVELY IMPAIRED?NO READINESS TO LEARN?YES LEARNING PREFERENCES?NO LEARNING CAPABILITIES PRESENT?YES EMOTIONAL BARRIERS?NO SPECIAL DEVICES?NO STEEL WHEEL ENGRAVER NEEDED?NO DOMESTIC VIOLENCE NONE. OCCUPATION: UNEMPLOYED DUE TO PAIN ISSUES. DIET: DIABETIC, LOW SALT , LOW FAT, LOW CHOLESTEROL. EXERCISE: WALKS DAILY. MARITAL STATUS: . OTHERS AT HOME: SPOUSE. PAIN CLINIC PFS, CLERGY, PUBLIC HEALTH REFERRALS PFS REFERRAL NEEDED?NO CLERGY REFERRAL NEEDED?NO PUBLIC HEALTH REFERRAL NEEDED?NO WAS THE PROVIDER NOTIFIED OF ANY PERTINENT INFO? N/A HAS THE PATIENT BEEN EDUCATED REGARDING HIS/HER PLAN OF CARE?YES HAS THE PATIENT BEEN EDUCATED REGARDING PAIN, THE RISK FOR PAIN, THE IMPORTANCE OF EFFECTIVE PAIN MANAGEMENT, AND THE PAIN ASSESSMENT PROCESS?YES ADVANCE DIRECTIVE ADVANCE DIRECTIVE DISCUSSED WITH PATIENT:YES ABHILASH MENJIVAR [phone] RUSSELL PAK () IS SECONDARY REVIEWED WITH PATIENT 10/16/18 1212 JSREVIEWED WITH PATIENT 11/07/18 1042 LAS. HOSPITALIZATION/MAJOR DIAGNOSTIC PROCEDURE COPD EXACERBATION, UNCONTROLLED DIABETES 05/2014 SURGERY RELATED REVIEW OF SYSTEMS REVIEWED BY: PROVIDER: LINDSEY SIMMONS . CONSTITUTIONAL: ANY CHANGE IN YOUR MEDICAL CONDITION? NO . CHILLS NO . FEVER NO . INFECTION: DO YOU HAVE NEW INFECTIONS? NO . DO YOU HAVE HISTORY OF MRSA? NO . MUSCULOSKELETAL: ANY NEW PATTERNS OF PAIN OR NUMBNESS? YES PT REPORTS PAIN NOW RADIATES TO BOTH HIPS, THIS HAS BEEN GOING ON FOR SEVERAL MONTHS, STATES SHE FEELS LIKE IT "CATCHES" WHEN SHE GETS UP OR SITS DOWN. . GASTROENTEROLOGY: ANY NEW CHANGE IN BOWEL CONTROL? NO . GENITOURINARY: ANY NEW CHANGE IN BLADDER CONTROL? NO . IS THERE A CHANCE YOU COULD BE ? NO . HEMATOLOGY/LYMPH: DO YOU TAKE ANY BLOOD THINNERS? (FOR EXAMPLE- COUMADIN, PLAVIX, AGGRENOX, PLATEL, PRADAXA, OR XARELTO) NO . WHEN WAS YOUR LAST DOSE? DATE: TIME: . NEUROLOGY: HAVE YOU FALLEN IN THE PAST 12 MONTHS? YES PT REPORTS SHE "PASSES OUT" AND FALLS. SEES HER PRIMARY, HAS SEEN CARDIOLOGY, AND PULMONARY. . ANY NEW EXTREMITY NUMBNESS OR WEAKNESS? NO . CARDIOLOGY: DO YOU HAVE A PACEMAKER OR DEFIBRILLATOR? NO . RESPIRATORY: HAVE YOU BEEN SICK IN THE PAST WEEK? NO . FEVER NO . FLU LIKE SYMPTOMS? NO . COUGH NO . INTEGUMENTARY: DO YOU HAVE ANY RASHES OR OPEN SORES? NO . ALLERGIC/IMMUNO: ARE YOU ALLERGIC TO IV DYE? NO . ANY NEW ALLERGIES? NO . PSYCHIATRIC: DO YOU HAVE THOUGHTS OF HURTING YOURSELF OR SOMEONE ELSE? NO . ARE YOU ABUSED, NEGLECTED, OR IN AN UNSAFE ENVIRONMENT? NO . ENDOCRINOLOGY: ARE YOU DIABETIC? YES . OTHER: DO YOU NEED ANY PRESCRIPTIONS? NO . IF YES, PLEASE LIST: ____ . ANY NEW PROBLEMS WITH YOUR MEDICATIONS? NO . WHEN DID YOU LAST EAT? ____ . WHEN DID YOU LAST DRINK? ____ . WHAT DID YOU LAST DRINK? ____ . NAME OF PERSON DRIVING YOU HOME? ____ . DO YOU HAVE ANY OTHER QUESTIONS OR CONCERNS PAIN IN HIPS . VITAL SIGNS WT 182.6 LBS, HT 62.5 IN, BMI 32.86 INDEX, BP 141/74 MM HG, HR 81 /MIN, RR 18 /MIN, TEMP 98.7 F, OXYGEN SAT % 96%, SAFE IN ENV? (Y/N) YES, NA INITIALS NC 09:50, REVIEWED BY: HARMAN. EXAMINATION GENERAL EXAMINATION: PSYCHROCKING IN CHAIR. LUNGS:CLEAR TO AUSCULTATION BILATERALLY. HEART:HEART RATE REGULAR, NORMAL S1S2. MUSCULOSKELETAL:MUSCLE STRENGTH TESTING 5/5 BILATERAL UPPER AND LOWER EXTREMITIES. SLOW TO RISE FROM SEATED POSITION. INCREASED PAIN BILATERALLY WITH AXIAL LOADING. POINT TENDERNESS OVER BILATERAL LUMBAR PARAVERTEBRAL MUSCLES AND FACETS.. ASSESSMENTS LOW BACK PAIN AT MULTIPLE SITES - M54.5 (PRIMARY) TREATMENT LOW BACK PAIN AT MULTIPLE SITES START BUTRANS PATCH WEEKLY, 10 MCG/HR, 1 PATCH TO SKIN, TRANSDERMAL, 1PATCH C3Z=NTY, 30 DAY(S), 4, REFILLS 2 CONTINUE TIZANIDINE HCL TABLET, 4 MG, 1 TAB, ORALLY, BEFORE BEDTIME AND IN NIGHT, NOTES: 1929 CONTINUE DICLOFENAC SODIUM TABLET DELAYED RELEASE, 50 MG, 1 TABLET WITH FOOD OR MILK, ORALLY, BID, NOTES: 10/15/181929 NOTES: ISTOP REGISTRY REVIEWED AND DEMONSTRATES COMPLLIANCE. , RISKS AND BENEFITS OF NARCOTIC/OPIOD MEDICATIONS WERE REVIEWED WITH PATIENT - THIS INCLUDES BUT IS NOT LIMITED TO RISK OF DEPENDANCE/DEVELOPMENT OF ADDICTION, MOOD DISTURBANCE AND DEPRESSION, OSTEOPOROSIS, HORMONAL AND LABIDAL CHANGES, RESPIRATORY DEPRESSION AND . PATIENT IS ADVISED NOT TO DRIVE OR DRINK ALCOHOL WHILE ON THESE MEDICATIONSDUE TO PATIENTS HISTORY OF MULTIPLE MEDICATION ALLERGIES/INTOLERANCES WITH PAIN MEDICATION IM PRESCRIBING BUTRANS PATCH.ALSO I WOULD LIKE TO ADHERE TO CDC GUIDELINES AND LIMIT PRESCRIBING C2 PAIN MEDICATIONS DUE TO THEIR POTENTIAL FOR SERIOUS SIDE EFFECTS.PATIENT IS IN NEED OF 24 HOUR OPIATE THERAPY TO TREAT HER CHRONIC PAIN THAT HAS NOT RESPONDED TO ALTERNATIVE TREATMENT MODALITIES.IT WOULD BE IRRESPONSIBLE OF INSURANCE COMPANY TO MANDATE THAT WE USE C2 MEDICATIONS ON THEIR FORMULARY THAT COULD RESULT IN POTENTIAL SERIOUS SIDE EFFECTS.PLEASE BE INFORMED THAT WE ARE RECOMMENDING BUTRANS PATCH A C3 24HR PAIN MEDICATION TO TREAT HER CHRONIC PAIN. PREVENTIVE MEDICINE PAIN CLINIC TEACHING: MEDICATIONS BUTRANS INFORMATION PRINTED AND REVIEWED. HARMAN 11/07/18 1110. PROCEDURE CODES FA211 ESTABILISHED PATIENT [facility] CHARGE DISPOSITION & COMMUNICATION FOLLOW UP 6-8WKS ELECTRONICALLY SIGNED BY LINDSEY SIMMONS, TROY ON 11/13/2018 AT 03:32 PM EST DISCLAIMER : THIS IS A VISIT SUMMARY EXTRACTED FROM THE [employer] CHART. IT IS NOT A COPY OF THE [employer] PROGRESS NOTE. MEÑO
== END ==
LOC: M PAIN 09:15
PROVIDERS: ATTEND Nurse Practitioner Family
DX: M54.5 Low back pain (principal); G89.29 Other chronic pain; E11.65 Type 2 diabetes mellitus with hyperglycemia; J44.9 Chronic obstructive pulmonary disease, unspecified; K21.9 Gastro-esophageal reflux disease without esophagitis; G47.33 Obstructive sleep apnea (adult) (pediatric); E78.2 Mixed hyperlipidemia; G43.909 Migraine, unspecified, not intractable, without status migrainosus; I10 Essential (primary) hypertension; F41.9 Anxiety disorder, unspecified; F32.9 Major depressive disorder, single episode, unspecified; F17.210 Nicotine dependence, cigarettes, uncomplicated; E66.9 Obesity, unspecified; Z68.32 Body mass index [BMI] 32.0-32.9, adult; Z88.0 Allergy status to penicillin; Z88.1 Allergy status to other antibiotic agents; Z88.5 Allergy status to narcotic agent; Z88.6 Allergy status to analgesic agent; Z88.8 Allergy status to other drugs, medicaments and biological substances; Z91.040 Latex allergy status; Z79.84 Long term (current) use of oral hypoglycemic drugs; Z79.1 Long term (current) use of non-steroidal anti-inflammatories (NSAID); Z79.899 Other long term (current) drug therapy

== ENCOUNTER → 2018-11-09 | Outpatient (REF) | payer OTHER, MEDICAID ==
[2018-11-09 18:51] LABS: ALBUMIN 4.1 GM/DL (3.2-5.2); ALT/SGPT 21 U/L (12-78); BILIRUBIN,TOTAL 0.6 MG/DL (0.2-1.0); BLOOD UREA NITROGEN 12 MG/DL (7-18); CALCIUM LEVEL 9.6 MG/DL (8.5-10.1); CARBON DIOXIDE LEVEL 31 MEQ/L (21-32); CHLORIDE LEVEL 102 MEQ/L (98-107); CREATININE FOR GFR 0.78 MG/DL (0.55-1.30); FREE THYROXINE INDEX 3.8 % (1.3-4.8); GLOMERULAR FILTRATION RATE > 60.0 (>51); GLUCOSE, FASTING 130 MG/DL (70-100); POTASSIUM SERUM 4.8 MEQ/L (3.5-5.1); SODIUM LEVEL 139 MEQ/L (136-145); T UPTAKE 30 % (30-39); THYROID STIMULATING HORMONE 0.549 uIU/ML (0.358-3.740); THYROXINE (T4) 12.5 UG/DL (4.5-12.0); TOTAL PROTEIN 7.4 GM/DL (6.4-8.2)
== END ==
LOC: M LAB REF 17:30
PROVIDERS: ATTEND Psychiatry & Neurology Child & Adolescent Psychiatry
DX: F32.9 Major depressive disorder, single episode, unspecified (principal)

== ENCOUNTER → 2018-11-13 | Outpatient (REF) | payer OTHER, MEDICAID ==
[2018-11-13 13:48] LABS: AMORPHOUS SEDIMENT SMALL (NEGATIVE); APPEARANCE, URINE HAZY (CLEAR); BACTERIA, URINE AUTO 3+ (NEGATIVE); BILIRUBIN, URINE AUTO NEGATIVE (NEGATIVE); BLOOD, URINE BLOOD 1+ (NEGATIVE); COLOR, URINE YELLOW (YELLOW); GLUCOSE, URINE (UA) AUTO NEGATIVE (NEGATIVE); KETONE, URINE AUTO NEGATIVE (NEGATIVE); LEUKOCYTE ESTERASE, URINE AUTO 3+ (NEGATIVE); MUCUS, URINE LARGE (NEGATIVE); NITRITE, URINE AUTO POSITIVE (NEGATIVE); PROTEIN, URINE AUTO NEGATIVE (NEGATIVE); RBC, URINE AUTO 10 /HPF (0-3); SPECIFIC GRAVITY URINE AUTO 1.019 (1.002-1.035); SQUAMOUS EPITHELIAL CELL UR AU 1 /HPF (0-6); UROBILINOGEN, URINE AUTO 0.2 mg/dL (0.0-2.0); WBC, URINE AUTO TNTC /HPF (0-3)
== END ==
LOC: M LAB REF 13:27
PROVIDERS: ATTEND Nurse Practitioner Women's Health
DX: N39.0 Urinary tract infection, site not specified (principal)

== ENCOUNTER → 2018-11-19 | Outpatient (CLI) | payer OTHER ==
--- NOTE | 2018-11-22 15:18 | SLEEPCENT ---
DATE OF PROCEDURE: 11/19/2018 ORDERED BY: Dr. Mendosa Nocturnal polysomnography was performed for evaluation of sleep physiology in a patient with obstructive lung disease, diabetes who carries a previous diagnosis of obstructive sleep apnea syndrome. 6 hours and 6 minutes of data were reviewed. There were 126 minutes of sleep identified. Sleep latency was mildly prolonged at 18 minutes. REM latency was short at 18.5 minutes. Sleep architecture was fragmented. There were two REM cycles noted. The patient awoke prior to 3 am and remained awake, resulting in reduced sleep efficiency of 49%. The electrocardiogram showed a sinus rhythm with occasional ectopy, average heart rate 70 beats per minute. EEG showed reasonably normal waveforms for awake and sleep. There were 40 respiratory events identified of 10 seconds in duration or greater for an apnea-hypopnea index of 13.6. The events were obstructive and not exclusive to sleep stage. Testing was performed predominantly in the supine posture. Snoring was also noted. Arousals from respiratory events in total occurred 3.1 times per hour and oxygen desaturations were seen into the low 80s. There was also some limb activity, only one train of 30 events. Limb movement arousal index of 7.8. IMPRESSION: Obstructive sleep apnea syndrome (G47.33). Apnea-hypopnea index 13.6. RECOMMENDATIONS: The patient should be encouraged to return to the sleep disorder center for pressure therapy and in the interim alcohol and sedative avoidance should be practiced and caution exercised during operation of motor vehicles.
== END ==
LOC: M SLEEP 20:00
PROVIDERS: ATTEND Internal Medicine Pulmonary Disease
DX: G47.33 Obstructive sleep apnea (adult) (pediatric) (principal)

== ENCOUNTER → 2018-11-24 | Outpatient (CLI) | payer OTHER ==
[2018-11-24 07:32] LABS: CHOLESTEROL RISK RATIO 3.104 (<5)
== END ==
LOC: M LAB 06:15
PROVIDERS: ATTEND Physician Assistant
DX: E78.2 Mixed hyperlipidemia (principal)

== ENCOUNTER → 2018-11-24 | Outpatient (CLI) | payer OTHER ==
--- NOTE | 2018-11-24 09:05 | REP ---
LOW DOSE CT STUDY OF THE CHEST: This study is compared to that on 04/13/2017. The lung mcdonough are clear. There are no mass lesions or other findings. The cardiomediastinal structures are unremarkable. The simulators noted in the thoracic spine area are again demonstrates. IMPRESSION: There are no findings of mass lesions in the lungs. No interim change. Electronically Signed by Delfino Diamond MD 11/24/2018 10:13 A
== END ==
LOC: M RAD 07:26
PROVIDERS: ATTEND Internal Medicine Pulmonary Disease
DX: F17.218 Nicotine dependence, cigarettes, with other nicotine-induced disorders (principal)

== ENCOUNTER → 2018-12-08 | Outpatient (REF) | payer OTHER ==
[2018-12-08 18:26] LABS: BACTERIA, URINE AUTO NEGATIVE (NEGATIVE); MUCUS, URINE SMALL (NEGATIVE); RBC, URINE AUTO 1 /HPF (0-3); SQUAMOUS EPITHELIAL CELL UR AU 0 /HPF (0-6); WBC, URINE AUTO 18 /HPF (0-3)
== END ==
LOC: M SMT 17:08
PROVIDERS: ATTEND Specialist
DX: R39.15 Urgency of urination (principal)

== ENCOUNTER → 2018-12-11 | Outpatient (REF) | payer OTHER ==
[2018-12-11 12:01] LABS: CLOSTRIDIUM DIFFICILE PCR POSITIVE (NEGATIVE)
== END ==
LOC: M SMT 10:04
PROVIDERS: ATTEND Specialist
DX: R39.15 Urgency of urination (principal)

== ENCOUNTER → 2018-12-18 | Outpatient (CLI) | payer OTHER ==
[2018-12-18 13:14] LABS: BASO # 0.1 10^3/uL (0.0-0.2); BASO % 0.6 % (0.0-1.0); EOS # 0.1 10^3/uL (0.0-0.50); EOS % 1.4 % (0.0-3.0); HEMATOCRIT 37.9 % (36.0-47.0); HEMOGLOBIN 12.4 g/dl (12.0-15.5); LYMPH # 2.8 10^3/uL (1.5-4.5); LYMPH % 31.7 % (24.0-44.0); MEAN CORPUSCULAR HEMOGLOBIN 28.7 pg (27.0-33.0); MEAN CORPUSCULAR HGB CONC 32.7 g/dl (32.0-36.5); MEAN CORPUSCULAR VOLUME 87.7 fl (80.0-96.0); MONO # 0.5 10^3/uL (0.0-0.8); MONO % 5.5 % (0.0-5.0); NEUTROPHILS # 5.3 10^3/uL (1.8-7.7); NEUTROPHILS % 60.3 % (36.0-66.0); PLATELET COUNT, AUTOMATED 334 10^3/uL (150-450); RED BLOOD COUNT 4.32 10^6/uL (4.00-5.40); WHITE BLOOD COUNT 8.8 10^3/uL (4.0-10.0)
[2018-12-18 14:01] LABS: ALBUMIN 3.9 GM/DL (3.2-5.2); ALT/SGPT 17 U/L (12-78); BILIRUBIN,TOTAL 0.4 MG/DL (0.2-1.0); BLOOD UREA NITROGEN 11 MG/DL (7-18); CALCIUM LEVEL 9.7 MG/DL (8.5-10.1); CARBON DIOXIDE LEVEL 30 MEQ/L (21-32); CHLORIDE LEVEL 100 MEQ/L (98-107); CREATININE FOR GFR 0.83 MG/DL (0.55-1.30); FERRITIN 64 NG/ML (8-252); FOLATE 17.7 NG/ML (>5.4); GLOMERULAR FILTRATION RATE > 60.0 (>51); GLUCOSE, FASTING 113 MG/DL (70-100); IRON (FE) 38 UG/DL (50-170); POTASSIUM SERUM 4.5 MEQ/L (3.5-5.1); SODIUM LEVEL 138 MEQ/L (136-145)
== END ==
LOC: M LAB 10:52
PROVIDERS: ATTEND Nurse Practitioner Adult Health
DX: Z13.9 Encounter for screening, unspecified (principal); M62.838 Other muscle spasm

== ENCOUNTER → 2019-01-01 | Outpatient (REF) | payer OTHER ==
[2019-01-01 13:40] LABS: BACTERIA, URINE AUTO 3+ (NEGATIVE); MUCUS, URINE LARGE (NEGATIVE); RBC, URINE AUTO 18 /HPF (0-3); SQUAMOUS EPITHELIAL CELL UR AU 2 /HPF (0-6); WBC, URINE AUTO TNTC /HPF (0-3)
== END ==
LOC: M SMT 12:57
PROVIDERS: ATTEND Specialist
DX: N39.41 Urge incontinence (principal)

== ENCOUNTER → 2019-01-02 | Outpatient (CLI) | payer OTHER, MEDICAID ==
[~2019-01-02] MED LIST changes: -/HCTZ25TA GT; -CYCL5TA PO; +CYCL5TAB5 PO; +FLUT1SPR2; -FLUTISP; +HYDR-3644 GT; +HYDR-3715 PO; +NICO21DI3 EXT; -NICO21PAT EXT; -NORCOTAB PO; +PRED-351 PO; -PRED10TA PO; +VITA100018 PO; -VITA100072 PO
--- NOTE | 2019-01-13 00:26 | ECWPNPC ---
PATIENT NAME: LINDSEY PAK : 1960 GENDER: FEMALE VISIT DATE: 01/02/2019 DISCHARGE DATE: 01/02/19 0000 VISIT LOCKED DATE TIME: PHYSICIAN: LINDSEY YEAGER RESOURCE: LINDSEY YEAGER REASON FOR APPOINTMENT 1. BACK HISTORY OF PRESENT ILLNESS HISTORY OF PRESENT ILLNESS: HERE FOR F/U OF CHRONIC BACK PAIN.SHE IS VERY SICK LATELY AND CURRENTLY BEING TREATED FOR C DIF.STATES SHE TRIED BUTRANS PATCH 10 MCG Q 7 DAYS AND THIS WAS NOT HELPFUL.I OFFERED TO INCREASE THIS TODAY.SHE BEGAN TO GET VERY FRUSTRATED.STATES SHE HAS BEEN TRYING TO GET DISABILITY PAPERWORK FILLED OUT BUT [facility] DOESNT SEND PAPERWORK TO PRIMARY.WANTS SOMETHING DONE FOR HER BACK.HAS 2 DCS BUT STATES SHE HAS THEM BOTH ON ALL THE TIME BUT THEY DONT HELP. PAIN THE PATIENT DESCRIBES THE PAIN... FALL RISK SCREENING: SCREENING :NO FALLS REPORTED IN THE LAST YEAR CURRENT MEDICATIONS TAKING VITAMIN B-12 ER 1000 MCG TABLET EXTENDED RELEASE 1 TABLET ORALLY ONCE A DAY WITH MEAL TAKING BLOOD GLUCOSE MONITOR SYSTEM W/DEVICE KIT DX:E11.9 - - TAKING VITAMIN D (ERGOCALCIFEROL) 53367 UNIT CAPSULE 1 CAPSULE ORALLY ONCE WEEKLY WITH MEAL TAKING FOLIC ACID 800 MCG TABLET 1 TABLET ORALLY ONCE A DAY WITH MEAL TAKING AZELASTINE HCL 0.1 % SOLUTION 1 SPRAY IN EACH NOSTRIL NASALLY TWICE A DAY, NOTES: FEW DAYS AGO TAKING PROAIR RESPICLICK 108 (90 BASE) MCG/ACT AEROSOL POWDER BREATH ACTIVATED 1 PUFF NEEDED INHALATION EVERY 4 HRS, NOTES: FEW DAYS AGO TAKING METFORMIN HCL 500 MG TABLET EXTENDED RELEASE 24 HOUR 4 TABLETS WITH MEAL ORALLY DAILY TAKING ATORVASTATIN CALCIUM 40 MG TABLET 1 TABLET ORALLY ONCE A DAY TAKING OMEPRAZOLE 40 MG CAPSULE DELAYED RELEASE 1 CAPSULE ORALLY TWICE A DAY TAKING CETIRIZINE HCL 10 MG TABLET 1 TABLET NEEDED ORALLY ONCE A DAY TAKING GLIPIZIDE XL 5 MG TABLET EXTENDED RELEASE 24 HOUR 1 TABLET ORALLY ONCE A DAY IF FFS IS >160 TAKING TYLENOL 8 HOUR 650 MG TABLET EXTENDED RELEASE 1-3 TABS NEEDED ORALLY EVERY 8 HRS, NOTES: FEW DAYS AGO TAKING FUROSEMIDE 20 MG TABLET 2 TABS ORALLY DAILY NEEDED TAKING PREMARIN 0.625 MG/GM CREAM VAGINAL NEEDED, NOTES: MONTHS AGO TAKING COMPRESSION STOCKINGS 15-20 KNEE HIGH DX BILATERAL LEG EDEMA TOPICAL DAILY, NOTES: WEAR OCC. TAKING DULOXETINE HCL 60 MG CAPSULE DELAYED RELEASE PARTICLES 1 CAPSULE ORALLY ONCE A DAY TAKING TRAZODONE HCL 150 MG TABLET 1 TABLET AT BEDTIME ORALLY ONCE A DAY TAKING TIZANIDINE HCL 6 MG CAPSULE 1 TAB ORALLY BEFORE BEDTIME AND IN NIGHT, NOTES: WE DIONT PRESCRIBE TAKING DICLOFENAC SODIUM 50 MG TABLET DELAYED RELEASE 1 TABLET WITH FOOD OR MILK ORALLY BID TAKING PYRIDIUM 200 MG TABLET 1 TABLET AFTER MEALS ORALLY THREE TIMES A DAY TAKING OXYBUTYNIN CHLORIDE ER 10 MG TABLET EXTENDED RELEASE 24 HOUR 1 TABLET ORALLY BID TAKING VANCOMYCIN HCL 250 MG CAPSULE 2 CAPSULES ORALLY EVERY 6 HRS NOT-TAKING BUTRANS 10 MCG/HR PATCH WEEKLY 1 PATCH TO SKIN TRANSDERMAL 1PATCH [id number] NOT-TAKING METHENAMINE HIPPURATE 1 GM TABLET 1 TABLET ORALLY TWICE A DAY UNKNOWN BLOOD GLUCOSE TEST DX:E11.9 STRIP 1 IN VITRO FOUR TIMES DAILY FOR FLUCTUATING BLOOD SUGARS UNKNOWN LANCETS DX:E11.9 MISCELLANEOUS - SUBCUTANEOUSLY FOUR TIMES DAILY UNKNOWN MACROBID 100 MG CAPSULE 1 CAPSULE WITH FOOD ORALLY TAKE ONE TABLET BID UNKNOWN VANCOMYCIN HCL 125 MG CAPSULE 1 CAPSULE ORALLY EVERY 6 HRS UNKNOWN FIRVANQ 50 MG/ML SOLUTION RECONSTITUTED 2.5 ML ORALLY EVERY 6 HRS UNKNOWN FIRVANQ 50 MG/ML SOLUTION RECONSTITUTED 2.5 ML ORALLY EVERY 6 HRS UNKNOWN OXYCODONE-ACETAMINOPHEN 5-325 MG TABLET 1 TABLET NEEDED ORALLY EVERY 6 HRS PRN PAIN MDD=2, NOTES: WEEKS AGO UNKNOWN MACROBID 100 MG CAPSULE 1 CAPSULE WITH FOOD ORALLY EVERY 12 HRS UNKNOWN MACROBID 100 MG CAPSULE 1 CAPSULE WITH FOOD ORALLY EVERY 12 HRS, NOTES: 3 DAYS AGO UNKNOWN DIFLUCAN 150 MG TABLET 1 TABLET ORALLY DIRECTED, NOTES: MONTH AGO UNKNOWN SYMBICORT 160-4.5 MCG/ACT AEROSOL 2 PUFFS INHALATION TWICE A DAY FOR DX: COPD UNKNOWN FLONASE 50 MCG/ACT SUSPENSION 1 SPRAY IN EACH NOSTRIL NASALLY ONCE A DAY UNKNOWN MOBIC 7.5 MG TABLET 1 TABLET ORALLY WITH FOOD ONCE A DAY UNKNOWN FLECTOR 1.3 % PATCH 1 PATCH TO SKIN TRANSDERMAL FOR PAIN TWICE A DAY, NOTES: INSURANCE DIDN'T COVER UNKNOWN NAPROXEN 500 MG TABLET 1 TABLET WITH FOOD OR MILK NEEDED ORALLY EVERY 12 HRS MEDICATION LIST REVIEWED AND RECONCILED WITH THE PATIENT PAST MEDICAL HISTORY TYPE 2 DIABETES ASTHMA ESOPHAGEAL REFLUX MIXED HYPERLIPIDEMIA MIGRAINE HEADACHE COPD - PFT 11/19 FEV1 = 1.82 RSD BOTH ARMS, ACROSS BACK HYPERTENSION - STRESS ECHO NEG 11/17 THYROIDITIS - EVAL PER DR ROBBINS, RESOLVED 2014 KASIA (OBSTRUCTIVE SLEEP APNEA) DEPRESSION/ ANXIETY HYPERTHYROIDISM C DIFF ECOLI IN URINE ALLERGIES BIAXIN: ? RASH - HAS TAKEN IT SINCE - SIDE EFFECTS OXYCODONE: HIVES - ALLERGY WELLBUTRIN: SEVERE SWELLING - ALLERGY PREGABALIN: SWELLING - ALLERGY NIASPAN: RASH - SIDE EFFECTS NEURONTIN: SWELLING - ALLERGY CODEINE SULFATE: SWELLING - ALLERGY ASPIRIN: HIVES - ALLERGY LISINOPRIL: COUGH - SIDE EFFECTS POWRED IN LATEX GLOVES: SKINS COMES OFF HANDS - ALLERGY ZANTAC: SWELLING - ALLERGY PCN: THROAT SWELLS - ALLERGY LASIX: DIARRHEA - SIDE EFFECTS HYDROCHLOROTHIAZIDE 12.5: RASH - ALLERGY MOBIC: LEG SWELLING - SIDE EFFECTS SURGICAL HISTORY BACK SURGERY RSD 1999 NO PERSONAL OR FHX OF SEVERE REACTION TO ANESTHESIA SHOULDER SURGERY RSD 1999 PARTIAL HYSTERECTOMY 91 BILATERAL ELBOW SURGERY, LEFT CARPAL TUNNEL 05 LASER THERAPY CERVICAL 1999 CHOLECYSTECTOMY - LIANA 08 EGD - DR GUZMAN, NORMAL WITH 12/10,08/14 MEDTRONIC STIMULATOR REPLACED - [facility] 11/14,07/15 LAPAROTOMY R OVARIAN MASS BENIGN 06-15-12 RIGHT CARPAL TUNNEL RELEASE - DR PERRY 04/04/13 ABDOMINAL HERNIA REPAIR - FÁTIMA 11-08-14 COLPOSCOPY WITH GABRIELA 09/01/15 & 10/05/16 CYSTO CYSTO WITH BOTOX 11/12/15 ANAL FISSURE AND FISTULA REPAIR 10-18-16 TUBE AND OVARY REMOVED--SHE IS NOT SURE WHICH SIDE T&A A CHILD RIGHT EYE SURGERY A CHILD HERNIA REPAIR R ABD- ENDED UP JUST REMOVED SCAR TISSUE-DR ZAPATA BOTOX BLADDER INJECTIONS 09/2018 FAMILY HISTORY FATHER: 60'S YRS, COLON CANCER - METASTATIC , KIDNEY CANCER, LUNG CANCER, PANCREATIC CANCER MOTHER: 50'S YRS, [place], CANCER, THROAT, MULTIPLE SCLEROSIS SIBLINGS: RSD - SISTER, HEART DISEASE - BROTHER DAUGHTER(S): 1 DAUGHTER-DRUG ADDICTION- 1 DAUGHTER-RSD PATERNAL AUNT: COLORECTAL CANCER LATE 30'S, OVARIAN CANCER 8 BROTHER(S) , 4 SISTER(S) . 1 SON(S) , 3 DAUGHTER(S) . FATHER KIDNEY CANCER\\N. SOCIAL HISTORY GENERAL: TOBACCO USE ARE YOU A:CURRENT SMOKER ARE YOU INTERESTED IN QUITTING?THINKING ABOUT QUITTING WAS DOING WELL BUT WITH ALL THE PAIN SHE IS HAVING SHE HAS GONE BACK TO SMOKING TO RELIEVE STRESS. PT REPORTS SHE IS TRYING TO CUT BACK, DECLINES ANY INFORMATION ABOUT CESSATION PT IS DOWN TO 5 CIGS/DAY. PREVIOUS QUIT ATTEMPTS?YES, WITHIN THE LAST 6 MONTHS. COUNSELED THE PATIENT ON SMOKING CESSATION, EDUCATION [id number]/05/2019 HOW MANY CIGARETTES A DAY DO YOU SMOKE?5 OR LESS HOW SOON AFTER YOU WAKE UP DO YOU SMOKE YOUR FIRST CIGARETTE?31-60 MIN HOW OFTEN DO YOU SMOKE CIGARETTES?EVERY DAY PATIENT COUNSELED ON THE DANGERS OF TOBACCO USE AND URGED TO QUIT:01/02/2019 LATEX QUESTIONNAIRE LATEX ALLERGY : HAVE YOU EVER DEVELOPED ANY TYPE OF REACTION AFTER HANDLING LATEX PRODUCTS SUCH RUBBER GLOVES, CONDOMS, DIAPHRAGMS, BALLOONS, SOCKS, OR UNDERWEAR?NO LATEX ALLERGY : HAVE YOU EVER DEVELOPED ANY TYPE OF REACTION DURING OR AFTER DENTAL APPOINTMENT, VAGINAL/RECTAL EXAMINATION, SURGICAL PROCEDURE, OR ANY OTHER EXPOSURE?NO LATEX RISK : HAVE YOU EVER HAD ANY DIFFICULTY BREATHING OR HIVES AFTER EATING OR HANDLING ANY FRUITS, OR VEGETABLES; SUCH KIWI, BANANAS, STONE FRUITS, OR CHESTNUTSNO LATEX RISK : DO YOU HAVE A PREVIOUS PERSONAL HISTORY OF MORE THAN NINE SURGERIES, SPINA BIFIDA, OR REPEATED CATHERTIZATIONS? NO LATEX RISK : ARE YOU FREQUENTLY EXPOSED TO LATEX PRODUCTS IN YOUR OCCUPATION?NO DATE ASKED : 12/08/2018 LUNG CANCER SCREENING SMOKING STATUS:CURRENT SMOKER IS THE PATIENT BETWEEN THE AGE OF 57 AND 79?NO BMI CARE GOAL FOLLOW-UP ABOVE NORMAL BMI FOLLOW-UPGIVING ENCOURAGEMENT TO EXERCISE ALCOHOL SCREENING DID YOU HAVE A DRINK CONTAINING ALCOHOL IN THE PAST YEAR?NO POINTS0 INTERPRETATIONNEGATIVE RECREATIONAL DRUG USE DRUG USE?NO CAFFEINE CAFFEINE USE?YES COFFEE -2 CUPS A DAY SEXUAL HX HAD SEX IN THE LAST 12 MONTHS (VAGINAL, ORAL, OR ANAL)?NO HAVE YOU EVER HAD AN STD?NO LMP:POST MENOPAUSE HIV / HEP-C SCREENING HIV TEST OFFERED TO PATIENT:YES DATE OFFERED:09/09/2014 TEST ACCEPTED:NO REASON:PATIENT DECLINED HEP-C TEST OFFERED TO PATIENT:YES DATE OFFERED:09/09/2014 TEST ACCEPTED:NO REASON:PATIENT DECLINED RASTAFARIAN [id number] NONE LANGUAGE LANGUAGES SPOKEN:GABONESE EDUCATION LEVEL OF EDUCATION:NOT FINISHED COLLEGE LEARNING BARRIERS / SPECIAL NEEDS CHANGE FROM LAST VISIT?NO BARRIERS TO LEARNING?NO HEARING IMPAIRED?NO VISION IMPAIRED?YES :CORRECTIVE LENSES COGNITIVELY IMPAIRED?NO READINESS TO LEARN?YES LEARNING PREFERENCES?NO LEARNING CAPABILITIES PRESENT?YES EMOTIONAL BARRIERS?NO SPECIAL DEVICES?NO PLASTIC PARTS DESIGNER NEEDED?NO DOMESTIC VIOLENCE NONE. OCCUPATION: UNEMPLOYED DUE TO PAIN ISSUES. DIET: DIABETIC, LOW SALT , LOW FAT, LOW CHOLESTEROL. EXERCISE: WALKS DAILY. MARITAL STATUS: . OTHERS AT HOME: SPOUSE. PAIN CLINIC PFS, CLERGY, PUBLIC HEALTH REFERRALS PFS REFERRAL NEEDED?NO CLERGY REFERRAL NEEDED?NO PUBLIC HEALTH REFERRAL NEEDED?NO WAS THE PROVIDER NOTIFIED OF ANY PERTINENT INFO? N/A HAS THE PATIENT BEEN EDUCATED REGARDING HIS/HER PLAN OF CARE?YES HAS THE PATIENT BEEN EDUCATED REGARDING PAIN, THE RISK FOR PAIN, THE IMPORTANCE OF EFFECTIVE PAIN MANAGEMENT, AND THE PAIN ASSESSMENT PROCESS?YES ADVANCE DIRECTIVE ADVANCE DIRECTIVE DISCUSSED WITH PATIENT:YES ABHILASH MENJIVAR [phone] RUSSELL PAK () IS SECONDARY REVIEWED WITH PATIENT 10/16/18 1212 JSREVIEWED WITH PATIENT 11/07/18 1042 LAS. HOSPITALIZATION/MAJOR DIAGNOSTIC PROCEDURE COPD EXACERBATION, UNCONTROLLED DIABETES 05/2014 SURGERY RELATED REVIEW OF SYSTEMS REVIEWED BY: PROVIDER: LINDSEY SIMMONS . CONSTITUTIONAL: ANY CHANGE IN YOUR MEDICAL CONDITION? YES CDIFF . CHILLS NO . FEVER NO . INFECTION: DO YOU HAVE NEW INFECTIONS? YES CDIFF . DO YOU HAVE HISTORY OF MRSA? NO . MUSCULOSKELETAL: ANY NEW PATTERNS OF PAIN OR NUMBNESS? INCREASE PAIN IN HANDS STIFFNESS BOTH ARMS AND HANDS . GASTROENTEROLOGY: ANY NEW CHANGE IN BOWEL CONTROL? YES AGAIN THE CDIFF . GENITOURINARY: ANY NEW CHANGE IN BLADDER CONTROL? NO . IS THERE A CHANCE YOU COULD BE ? NO . HEMATOLOGY/LYMPH: DO YOU TAKE ANY BLOOD THINNERS? (FOR EXAMPLE- COUMADIN, PLAVIX, AGGRENOX, PLATEL, PRADAXA, OR XARELTO) NO . WHEN WAS YOUR LAST DOSE? DATE: TIME: . NEUROLOGY: HAVE YOU FALLEN IN THE PAST 12 MONTHS? NO . ANY NEW EXTREMITY NUMBNESS OR WEAKNESS? NO . CARDIOLOGY: DO YOU HAVE A PACEMAKER OR DEFIBRILLATOR? NO . RESPIRATORY: HAVE YOU BEEN SICK IN THE PAST WEEK? NO . FEVER NO . FLU LIKE SYMPTOMS? NO . COUGH NO . INTEGUMENTARY: DO YOU HAVE ANY RASHES OR OPEN SORES? NO . ALLERGIC/IMMUNO: ARE YOU ALLERGIC TO IV DYE? NO . ANY NEW ALLERGIES? NO . PSYCHIATRIC: DO YOU HAVE THOUGHTS OF HURTING YOURSELF OR SOMEONE ELSE? NO . ARE YOU ABUSED, NEGLECTED, OR IN AN UNSAFE ENVIRONMENT? NO . ENDOCRINOLOGY: ARE YOU DIABETIC? YES . OTHER: DO YOU NEED ANY PRESCRIPTIONS? NO . IF YES, PLEASE LIST: ____ . ANY NEW PROBLEMS WITH YOUR MEDICATIONS? NO . WHEN DID YOU LAST EAT? ____ . WHEN DID YOU LAST DRINK? ____ . WHAT DID YOU LAST DRINK? ____ . NAME OF PERSON DRIVING YOU HOME? ____ . DO YOU HAVE ANY OTHER QUESTIONS OR CONCERNS NO . VITAL SIGNS WT 177.2 LBS, HT 62.5 IN, BMI 31.89 INDEX, BP 122/67 MM HG, HR 81 /MIN, RR 18 /MIN, TEMP 98.2 F, OXYGEN SAT % 97%, NA INITIALS AW 0900. EXAMINATION GENERAL EXAMINATION: PE DEFERRED DUE TO ILLNESS. ASSESSMENTS LOW BACK PAIN AT MULTIPLE SITES - M54.5 (PRIMARY) TREATMENT LOW BACK PAIN AT MULTIPLE SITES NOTES: WALKED OUT WITHOUT CHECKING OUT. PROCEDURE CODES FA211 ESTABILISHED PATIENT [facility] CHARGE DISPOSITION & COMMUNICATION FOLLOW UP 2 MONTHS ELECTRONICALLY SIGNED BY TROY GARCIA ON 01/12/2019 AT 04:25 PM EDT DISCLAIMER : THIS IS A VISIT SUMMARY EXTRACTED FROM THE [employer] CHART. IT IS NOT A COPY OF THE [employer] PROGRESS NOTE. MEÑO
== END ==
LOC: M PAIN 08:45
PROVIDERS: ATTEND Nurse Practitioner Family
DX: M54.5 Low back pain (principal); G89.29 Other chronic pain; E11.9 Type 2 diabetes mellitus without complications; J44.9 Chronic obstructive pulmonary disease, unspecified; K21.9 Gastro-esophageal reflux disease without esophagitis; G43.909 Migraine, unspecified, not intractable, without status migrainosus; I10 Essential (primary) hypertension; G47.33 Obstructive sleep apnea (adult) (pediatric); F32.9 Major depressive disorder, single episode, unspecified; F41.9 Anxiety disorder, unspecified; F17.210 Nicotine dependence, cigarettes, uncomplicated; Z79.84 Long term (current) use of oral hypoglycemic drugs; Z79.899 Other long term (current) drug therapy; Z88.5 Allergy status to narcotic agent; Z88.6 Allergy status to analgesic agent; Z88.8 Allergy status to other drugs, medicaments and biological substances; Z91.040 Latex allergy status

== ENCOUNTER → 2019-02-01 | Outpatient (REF) | payer OTHER, MEDICAID ==
[2019-02-01 18:01] LABS: ALBUMIN 3.8 GM/DL (3.2-5.2); ALT/SGPT 20 U/L (12-78); BILIRUBIN,TOTAL 0.6 MG/DL (0.2-1.0); BLOOD UREA NITROGEN 15 MG/DL (7-18); CARBON DIOXIDE LEVEL 29 MEQ/L (21-32); CHLORIDE LEVEL 105 MEQ/L (98-107); CREATININE FOR GFR 0.91 MG/DL (0.55-1.30); GLOMERULAR FILTRATION RATE > 60.0 (>51); GLUCOSE, FASTING 83 MG/DL (70-100); POTASSIUM SERUM 4.9 MEQ/L (3.5-5.1); SODIUM LEVEL 140 MEQ/L (136-145); TOTAL PROTEIN 7.5 GM/DL (6.4-8.2)
[2019-02-01 18:31] LABS: HEMOGLOBIN A1c 7.4 %
== END ==
LOC: M LAB REF 16:07
PROVIDERS: ATTEND Nurse Practitioner Adult Health
DX: Z13.9 Encounter for screening, unspecified (principal)

== ENCOUNTER → 2019-02-07 | Outpatient (REF) | payer OTHER, MEDICAID ==
[~2019-02-07] MED LIST changes: +APAP500T10 PO; -AZEL0.1S; +AZEL0.1S NARES; +DALI1TAB2 PO; +DULO1CAP2 PO; -FLON1SPR; +FLON1SPR NARES; +FLUC150T PO; -FLUC150T TOP; +GLIP5TAB20 PO; +METF500T4 PO; +METH-855 PO; +TIZA2TA PO; +TRAZ-163 PO
[2019-02-10 14:15] LABS: HPV HYBRID CAPTURE II Positive (Negative)
== END ==
LOC: M SFHCWAGY 14:28
PROVIDERS: ATTEND Nurse Practitioner Family
DX: Z12.72 Encounter for screening for malignant neoplasm of vagina (principal); B97.7 Papillomavirus as the cause of diseases classified elsewhere

== ENCOUNTER 2019-02-27 15:43 | Emergency (ER) | payer OTHER ==
[~2019-02-27] VITALS: Ht 160 cm; Wt 82.3 kg
[~2019-02-27 15:43] MED LIST changes: -APAP500T10 PO; -DALI1TAB2 PO; -DULO1CAP2 PO; -GLIP5TAB20 PO; -METF500T4 PO; -METH-855 PO; -TIZA2TA PO; -TRAZ-163 PO
--- NOTE | 2019-02-27 16:36 | REP ---
Portable chest x-ray: Single view. History: Dyspnea and cough. Comparison chest x-ray: October 16, 2018. Findings: Dorsal column stimulator catheters are visible in the cervical, mid thoracic, and lower thoracic spine. Oxygen delivery tubing and EKG monitoring electrodes are seen. The lungs are symmetrically aerated and clear. Heart is not enlarged. The pulmonary vasculature is not increased. Pleural angles are sharp. Impression: No active cardiopulmonary disease. Neurostimulator electrodes are visible in the cervical and thoracic spine. Electronically Signed by Cyril Saldana MD 02/27/2019 04:27 P
[2019-02-27 17:14] LABS: BASO % 0.3 % (0.0-1.0); EOS # 0.2 10^3/uL (0.0-0.50); EOS % 1.4 % (0.0-3.0); HEMATOCRIT 38.5 % (36.0-47.0); HEMOGLOBIN 12.5 g/dl (12.0-15.5); LYMPH # 3.7 10^3/uL (1.5-4.5); LYMPH % 23.7 % (24.0-44.0); MEAN CORPUSCULAR HEMOGLOBIN 28.7 pg (27.0-33.0); MEAN CORPUSCULAR HGB CONC 32.5 g/dl (32.0-36.5); MEAN CORPUSCULAR VOLUME 88.3 fl (80.0-96.0); MONO # 0.8 10^3/uL (0.0-0.8); MONO % 5.2 % (0.0-5.0); NEUTROPHILS # 10.6 10^3/uL (1.8-7.7); PLATELET COUNT, AUTOMATED 334 10^3/uL (150-450); RED BLOOD COUNT 4.36 10^6/uL (4.00-5.40); WHITE BLOOD COUNT 15.4 10^3/uL (4.0-10.0)
[2019-02-27 17:25] LABS: INR 0.91; PROTHROMBIN TIME 12.3 SECONDS (12.1-14.4)
[2019-02-27 17:41] LABS: ALBUMIN 3.8 GM/DL (3.2-5.2); ALT/SGPT 18 U/L (12-78); BILIRUBIN,DIRECT 0.2 MG/DL (0.0-0.2); BILIRUBIN,TOTAL 0.6 MG/DL (0.2-1.0); BLOOD UREA NITROGEN 10 MG/DL (7-18); CALCIUM LEVEL 9.8 MG/DL (8.5-10.1); CARBON DIOXIDE LEVEL 34 MEQ/L (21-32); CHLORIDE LEVEL 99 MEQ/L (98-107); CK-MB VALUE MASS < 1.0 NG/ML (<3.6); CPK CREATINE PHOSPHOKINASE 43 U/L (26-192); CREATININE FOR GFR 0.93 MG/DL (0.55-1.30); GLOMERULAR FILTRATION RATE > 60.0 (>51); GLUCOSE, FASTING 152 MG/DL (70-100); MB/CK RELATIVE INDEX 2.33 (< OR =4); NT-PRO BNP 44 PG/ML (<125); SODIUM LEVEL 139 MEQ/L (136-145); THYROID STIMULATING HORMONE 0.332 uIU/ML (0.358-3.740); TOTAL PROTEIN 6.8 GM/DL (6.4-8.2); TROPONIN I < 0.02 NG/ML (< 0.10)
[2019-02-27] MEDS: IPRATROPIUM 0.5MG/ALBUTEROL 2.5MG INH SOL UD 3ML (DUONEB)(J7620) NEB SCH ×3 (18:14→18:46)
[2019-02-27 18:24] LABS: ABG BASE EXCESS 6.9 (-2.0-2.0); ABG HCO3 31.4 MEQ/L (22.0-26.0); ABG O2 SATURATION 90.7 % (95.0-99.0); ABG PARTIAL PRESSURE CO2 43.8 mmHg (35.0-45.0); ABG PARTIAL PRESSURE O2 58.2 mmHg (75.0-100.0); ABG STANDARD HCO3 30.6 MEQ/L (22.0-26.0); ABG TOTAL CO2 32.7 MEQ/L (22.0-29.0); ABG pH (ARTERIAL) 7.473 UNITS (7.350-7.450)
[2019-02-27] MEDS ORDERED: NS 1,000 ML IV ONE (18:45)
[2019-02-27] MEDS ORDERED: PRED20TA PO (18:45)
[2019-02-27] MEDS ORDERED: dexameTHASONE 20 MG/5 ML VIAL (J1100) IV ONE (19:30)
[2019-02-27] MEDS ORDERED: IPRATROPIUM 0.5MG/ALBUTEROL 2.5MG INH SOL UD 3ML (DUONEB)(J7620) NEB ONE (19:45)
[2019-02-27 20:07] VITALS: BP 129/59
--- NOTE | 2019-02-27 21:11 | ECGEPIP ---
[facility] - ED Test Date: 2019-02-27 Pat Name: LINDSEY PAK Department: Room: - Gender: Female Director Government: kk : 1960 Requested By: Haily Gilliland Order Number: [id number] Reading MD: Haily Gilliland Measurements Intervals [place] Rate: 93 P: 54 AK: 127 QRS: QRSD: 80 T: 1 QT: 353 QTc: 439 Interpretive Statements SINUS RHYTHM NSTTW abnormalities Electronically Signed on 02-27-2019 21:11:24 EDT by Haily Gilliland
[2019-02-28] MEDS ORDERED: TRAZ-163 PO (12:29)
[2019-02-28] MEDS ORDERED: APAP500T10 PO (12:29)
[2019-02-28] MEDS ORDERED: METH-855 PO (12:29)
[2019-02-28] MEDS ORDERED: GLIP5TAB20 PO (12:29)
[2019-02-28] MEDS ORDERED: TIZA2TA PO (12:29)
[2019-02-28] MEDS ORDERED: DULO1CAP2 PO (12:29)
[2019-02-28] MEDS ORDERED: DALI1TAB2 PO (12:29)
[2019-02-28] MEDS ORDERED: METF500T4 PO (13:04)
== END 2019-02-27 20:14 | disposition home or self-care (01) ==
LOC: M ED 15:43
DX: J44.1 Chronic obstructive pulmonary disease with (acute) exacerbation (principal); J45.909 Unspecified asthma, uncomplicated; I10 Essential (primary) hypertension; E11.9 Type 2 diabetes mellitus without complications; E78.5 Hyperlipidemia, unspecified; E03.9 Hypothyroidism, unspecified; G47.33 Obstructive sleep apnea (adult) (pediatric); Z79.899 Other long term (current) drug therapy; Z79.84 Long term (current) use of oral hypoglycemic drugs; Z88.0 Allergy status to penicillin; Z88.1 Allergy status to other antibiotic agents; Z88.5 Allergy status to narcotic agent; Z88.8 Allergy status to other drugs, medicaments and biological substances; Z91.040 Latex allergy status; F17.210 Nicotine dependence, cigarettes, uncomplicated
CPT/HCPCS: 36600; 71045; 80048; 80076; 82550; 82553; 82803; 83605; 83880; 84443; 85025; 85610; 87040; 87486; 87581; 87633; 87798; 93005; 93041; 94640; 96374; 99285; J1100

== ENCOUNTER 2019-02-28 09:13 | Inpatient (IN) | payer OTHER ==
[~2019-02-28] VITALS: Ht 160 cm; Wt 85.8 kg
[2019-02-28] VITALS (11 sets, daily range): BP systolic 121–129; BP diastolic 59–74; O2SAT 91–94
[2019-02-28] MEDS: IPRATROPIUM 0.5MG/ALBUTEROL 2.5MG INH SOL UD 3ML (DUONEB)(J7620) NEB SCH ×6 (09:44→23:04)
[2019-02-28 10:20] LABS: ABG BASE EXCESS 2.7 (-2.0-2.0); ABG HCO3 25.5 MEQ/L (22.0-26.0); ABG O2 SATURATION 94.8 % (95.0-99.0); ABG PARTIAL PRESSURE CO2 33.7 mmHg (35.0-45.0); ABG PARTIAL PRESSURE O2 70.2 mmHg (75.0-100.0); ABG STANDARD HCO3 26.8 MEQ/L (22.0-26.0); ABG TOTAL CO2 26.5 MEQ/L (22.0-29.0); ABG pH (ARTERIAL) 7.497 UNITS (7.350-7.450)
[2019-02-28] MEDS ORDERED: ISOVUE-370 76% 100ML VIAL (Q9967) As Ordered ONE (11:00)
[2019-02-28] MEDS ORDERED: LevoFLOXacin IV 750 MG in APPROPRIATE DILUENT 1 EA IV ONE (11:45)
--- NOTE | 2019-02-28 11:54 | REP ---
CT PULMONARY ANGIOGRAM: With IV contrast. HISTORY: Hypoxia. Rule out pulmonary embolus. COMPARISON STUDIES: Comparison is made with yesterday's portable chest x-ray. Comparison CT angiography of the chest is from April 13, 2017. CONTRAST DOSE: 75 mL of Isovue [address] TECHNIQUE: Helical scanning is acquired and overlapping 1.5 mm and contiguous 3 mm axial images are reformatted. In addition, maximum intensity projection and multiplanar re-formation images are generated in sagittal and coronal imaging projections. CT PULMONARY ANGIOGRAPHIC FINDINGS: There is good opacification in the pulmonary arterial tree. There is no vessel cutoff or filling defect to suggest a pulmonary embolism. Maximal intensity projection images show no abnormal pulmonary arterial tree. The thoracic aorta enhances homogeneously and is normal in course and caliber. No aneurysm or dissection is appreciated. There is no evidence of pleural or pericardial effusion. There are multiple granulomatous calcifications within the spleen. The gallbladder is surgically absent. No adrenal lesion is seen. No hilar or mediastinal mass is seen. There are a few stable normal-sized mediastinal lymph nodes. No adenopathy is seen. There is a subtle infiltrate pattern with a tree-in-bud peribronchovascular density pattern in the right lower lobe consistent with early pneumonia. There is some peribronchial thickening in the right lower lobe as well. These changes are new. There is a single nodular opacity in the right upper lobe peripherally which may be inflammatory as well. It was not present previously. It measures 4 mm in greatest diameter. No acute bony abnormality is appreciated. There is a dorsal column stimulator noted in the thoracic spine. IMPRESSION: No CT evidence of pulmonary embolus. Early infiltrate right lower lobe. Peribronchovascular 4 mm nodule right upper lobe may be inflammatory as well. Otherwise no acute disease. Dorsal column stimulator in the thoracic spine. Electronically Signed by Cyril Saldana MD 02/28/2019 12:38 P
[2019-02-28 12:12] LABS: BASO % 0.1 % (0.0-1.0); HEMATOCRIT 36.9 % (36.0-47.0); HEMOGLOBIN 12.2 g/dl (12.0-15.5); LYMPH # 0.9 10^3/uL (1.5-4.5); MEAN CORPUSCULAR HEMOGLOBIN 28.9 pg (27.0-33.0); MEAN CORPUSCULAR HGB CONC 33.1 g/dl (32.0-36.5); MEAN CORPUSCULAR VOLUME 87.4 fl (80.0-96.0); MONO # 0.2 10^3/uL (0.0-0.8); MONO % 2.3 % (0.0-5.0); NEUTROPHILS % 87.2 % (36.0-66.0); PLATELET COUNT, AUTOMATED 308 10^3/uL (150-450); RED BLOOD COUNT 4.22 10^6/uL (4.00-5.40); WHITE BLOOD COUNT 10.4 10^3/uL (4.0-10.0)
[2019-02-28] MEDS ORDERED: GLIP5TAB20 PO (12:29)
[2019-02-28] MEDS ORDERED: TRAZ-163 PO (12:29)
[2019-02-28] MEDS ORDERED: METH-855 PO (12:29)
[2019-02-28] MEDS ORDERED: APAP500T10 PO (12:29)
[2019-02-28] MEDS ORDERED: DALI1TAB2 PO (12:29)
[2019-02-28] MEDS ORDERED: TIZA2TA PO (12:29)
[2019-02-28] MEDS ORDERED: DULO1CAP2 PO (12:29)
[2019-02-28] MEDS ORDERED: METF500T4 PO (13:04)
[2019-02-28] MEDS ORDERED: GLUCAGON FOR INJ 1 MG VIAL (J1610) SC PRN ×2 (13:30→16:45)
[2019-02-28] MEDS ORDERED: DEXTROSE 50% 50 ML SYRINGE IV PRN ×2 (13:30→16:45)
[2019-02-28] MEDS ORDERED: GLUCOSE 4 GM CHEW TABLET PO PRN ×2 (13:30→16:45)
[2019-02-28] MEDS ORDERED: IPRATROPIUM 0.5MG/ALBUTEROL 2.5MG INH SOL UD 3ML (DUONEB)(J7620) NEB PRN (13:30)
[2019-02-28] MEDS ORDERED: FLUTICASONE PROP 0.05% NASAL SPRAY 16 GM (FLONASE) NARES PRN (13:30)
[2019-02-28] MEDS ORDERED: ACETAMINOPHEN 500 MG TAB PO PRN (13:30)
[2019-02-28] MEDS ORDERED: traZODone 50 MG TAB PO PRN (13:30)
[2019-02-28] MEDS ORDERED: hydrOXYzine 25 MG TAB PO PRN (13:30)
[2019-02-28] MEDS: ENOXAPARIN 40 MG/0.4 ML SYRINGE (J1650) SC SCH (15:19)
[2019-02-28] MEDS: methylPREDNISolone INJ 40 MG/1 ML VIAL (J2920) IV SCH ×2 (15:19→21:54)
--- NOTE | 2019-02-28 16:59 | HPEPDOC ---
General Date of Admission February 28, 2019 at 13:31 Date of Service: February 28, 2019 Chief Complaint The patient is a 58-year-old female admitted with a reason for visit of Rll Pneumonia. History of Present Illness 58-year-old female with past medical history of hypertension, dyslipidemia, diabetes mellitus, chronic pain secondary to reflex sympathetic dystrophy, overactive bladder with recurrent UTIs, and COPD not on oxygen at baseline, and continued tobacco use presents to the ER with a chief complaint of worsening shortness of breath over the last 7 days. During this time, the patient states that she has been having a cough productive of greenish sputum. The patient does admit to smoking 5 cigarettes daily. She came to the ER yesterday for complaints of the same, and went home prior to being admitted. 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 During this time, the patient denies any complete of chest pain, palpitations, orthopnea, worsening lower extremity edema, or PND. In the ER, an early infiltrate at the right lower lobe. She will be admitted to the hospitalist service for further management. Home Medications Scheduled Atorvastatin Calcium (Atorvastatin Calcium) 40 Mg Tab, 40 MG PO QHS, (Reported) Budesonide/Formoterol (Symbicort 160-4.5 Mcg Inhaler) 60 Puff/Inhaler Aers, 2 PUFF INH BID, (Reported) Cetirizine HCl (Cetirizine HCl) 10 Mg Tab, 10 MG PO QHS, (Reported) Conjugated Estrogens (Premarin) 1 Dose/30 Gm Cr, 0.5 GRAM PV 2XW, (Reported) TUESDAY/TUESDAY AT BEDTIME Cyanocobalamin (Vitamin B-12) (Vitamin B-12) 1,000 Mcg Tab, 1,000 MCG PO QHS, (Reported) Duloxetine Hcl (Cymbalta) 60 Mg Cap, 60 MG PO QHS, (Reported) TAKES WITH 30MG DOSE FOR 90MG TOTAL Duloxetine Hcl (Duloxetine HCl) 30 Mg Capsule.dr, 30 MG PO QHS, (Reported) TAKES WITH 60MG DOSE FOR 90MG TOTAL Ergocalciferol (Vitamin D2) (Vitamin D2) 50,000 Unit Cap, 50,000 UNITS PO QWEEK, (Reported) THURSDAYS Folic Acid (Folic Acid) 800 Mcg Tab, 800 MCG PO QHS, (Reported) Glipizide (Glipizide ER) 5 Mg Tab.er.24, 5 MG PO QHS, (Reported) Metformin HCl (Metformin HCl ER) 500 Mg Tab.er.24h, 2,000 MG PO QPM, (Reported) Methenamine Hippurate (Methenamine Hippurate) 1 Gm Tablet, 1 GM PO QHS, (Reported) Omeprazole (Omeprazole) 40 Mg Cap, 40 MG PO QHS, (Reported) Roflumilast (Daliresp) 500 Mcg Tablet, 500 MCG PO QHS, (Reported) Tiotropium [place] (Spiriva) 18 Mcg Cap, 18 MCG INH DAILY, (Reported) Tizanidine HCl (Tizanidine HCl) 2 Mg Tablet, 6 MG PO QHS, (Reported) Trazodone HCl (Trazodone HCl) 100 Mg Tablet, 150 MG PO QHS, (Reported) Umeclidinium [place] (Incruse Ellipta) 62.5 Mcg/Inh Inh, 1 PUFF INH DAILY, (Reported) Scheduled PRN Acetaminophen (Acetaminophen) 500 Mg Tablet, 500 MG PO Q4H PRN for PAIN, (Reported) Albuterol Sulfate (Proair Hfa) 108 Mcg/Act Aer, 2 PUFF INH Q4HP PRN for SOB/WHEEZING, (Reported) Azelastine HCl (Azelastine HCl) 0.1 % Spr, 1 SPRAY NARES DAILY PRN for ALLERGIES, (Reported) Fluconazole (Fluconazole) 150 Mg Tab, 150 MG PO ASDIRECTED PRN for ITCHING, (Reported) Fluticasone Propionate (Flonase Allergy Relief) 50 Mcg/Act Spr, 1 SPRAY NARES DAILY PRN for ALLERGIES, (Reported) Furosemide (Furosemide) 20 Mg Tab, 40 MG PO DAILY PRN for FLUID RETENTION, (Reported) Hydroxyzine HCl (Hydroxyzine HCl) 25 Mg Tab, 25 MG PO Q4HP PRN for ANXIETY, (Reported) Ipratropium/Albuterol Sulfate (Iprat-Albut 0.5-3(2.5) mg/3 ml) 1 Janelle Janelle, 1 VIAL NEB Q6H PRN for SHORTNESS OF BREATH, (Reported) Allergies Coded Allergies: Penicillins (Verified Allergy, Intermediate, THROAT SWELLS, 02/27/19) aspirin (Verified Allergy, Intermediate, HIVES, 02/27/19) bupropion (Verified Allergy, Intermediate, THROAT SWELLS, 02/27/19) codeine (Verified Allergy, Intermediate, THROAT SWELLING, 02/27/19) gabapentin (Verified Allergy, Intermediate, THROAT SWELLS, 02/27/19) hydrochlorothiazide (Verified Allergy, Intermediate, NECK AND THROAT SWELLING, 02/27/19) lisinopril (Verified Allergy, Intermediate, NECK AND TONGUE SWELLING, 02/27/19) pregabalin (Verified Allergy, Intermediate, THROAT SWELLING, 02/27/19) niacin (Verified Allergy, Mild, RASH, 02/27/19) oxycodone (Verified Allergy, Mild, HIVES, 02/27/19) furosemide (Verified Adverse Reaction, Intermediate, DIARRHEA, 02/27/19) clarithromycin (Verified Adverse Reaction, Unknown, YEAST INFECTION, 02/27/19) Past Medical History Medical History As noted in HPI Social History * Smoker: current smoker (patient admits to smoking a quarter pack of tobacco daily for the past several months. Prior to that the patient was to smoking 2 packs per day for the last 45 years.) Alcohol: Denies Drugs: denies Review of Systems Other systems 10 point review of systems negative unless otherwise specified in HPI. Physical Examination General Exam: Positive: Alert, Cooperative, No Acute Distress ENT Exam: Positive: Atraumatic, Mucous membr. moist/pink Chest Exam: Positive: Diminished; Negative: Rales, Rhonchi Heart Exam: Positive: Rate Normal, Normal S1, Normal S2 Abdomen Exam: Positive: Soft, Tenderness (mild tenderness to deep diffuse palpation in all quadrants. No rebound tenderness, guarding, or rigidity noted.) Extremity Exam: Negative: Tenderness, Swelling Psych Exam: Positive: Oriented x 3 Vital Signs Vital Signs Date Time Temp Pulse Resp B/P (MAP) Pulse Ox O2 Delivery O2 Flow Rate FiO2 02/28/19 16:05 3.0 02/28/19 15:00 84 121/58 (79) 92 Nasal Cannula 02/28/19 14:06 96.4 02/28/19 09:13 24 Laboratory Data Labs 24H Laboratory Tests 2 02/28/19 09:47: Blood Gas Bicarbonate Standard 26.8H, Arterial Blood pH 7.497H, Arterial Blood Partial Pressure CO2 33.7L, Arterial Blood Partial Pressure O2 70.2L, Arterial Blood Total CO2 26.5, Arterial Blood HCO3 25.5, Arterial Blood Base Excess 2.7H, Arterial Blood Oxygen Saturation 94.8L 02/28/19 11:53: Immature Granulocyte % (Auto) 1.4, White Blood Count 10.4H, Red Blood Count 4.22, Hemoglobin 12.2, Hematocrit 36.9, Mean Corpuscular Volume 87.4, Mean Corpuscular Hemoglobin 28.9, Mean Corpuscular Hemoglobin Concent 33.1, Red Cell Distribution Width 13.8, Platelet Count 308, Neutrophils (%) (Auto) 87.2H, Lymphocytes (%) (Auto) 9.0L, Monocytes (%) (Auto) 2.3, Eosinophils (%) (Auto) 0.0, Basophils (%) (Auto) 0.1, Neutrophils # (Auto) 9.0H, Lymphocytes # (Auto) 0.9L, Monocytes # (Auto) 0.2, Eosinophils # (Auto) 0.0, Basophils # (Auto) 0.0, Nucleated Red Blood Cells % (auto) 0.0 02/28/19 16:34: Bedside Glucose (Misc Panel) 343H CBC/BMP Laboratory Tests 02/28/19 11:53 Red Blood Count 4.22, Mean Corpuscular Volume 87.4, Mean Corpuscular Hemoglobin 28.9, Mean Corpuscular Hemoglobin Concent 33.1, Red Cell Distribution Width 13.8, Neutrophils (%) (Auto) 87.2 H, Lymphocytes (%) (Auto) 9.0 L, Monocytes (%) (Auto) 2.3, Eosinophils (%) (Auto) 0.0, Basophils (%) (Auto) 0.1, Neutrophils # (Auto) 9.0 H, Lymphocytes # (Auto) 0.9 L, Monocytes # (Auto) 0.2, Eosinophils # (Auto) 0.0, Basophils # (Auto) 0.0 Plan / VTE VTE Prophylaxis Ordered?: Yes Plan Plan COPD Exacerbation 2/2 CAP CTA Chest notable for RLL infiltrate Sputum culture ordered The patient has been given a dose of IV Levaquin in the ER We will continue the patient on IV steroids, serial inhaler therapy We will continue to down titrate the patient's supplemental oxygen as tolerated 4mm nodule in the RUL Possibly inflammatory in nature Discussed the findings with the patient and the need to follow-up as an outpatient for a repeat CT of the chest to monitor for resolution versus the need to further follow-up and investigate for possible mass. The patient verbalized understanding of the same, and notes that she will follow up as an outpatient for this. History of C. difficile The patient tells me that she was diagnosed with C. difficile at the end of December and has been on antibiotics for the same. She was apparently scheduled to get a stool transplant with Dr. Jones of GI on March 06. She was also scheduled to follow-up with Dr. Shannon of ID as an outpatient The patient endorses that she continues to have 5-6 loose stools daily with generalized abdominal pain. She denies any nausea or vomiting at this time. Will consult ID tomorrow when available regarding further management of antibiotics. The patient did receive 1 dose of IV Levaquin in the ER, we will hold off on further antibiotic therapy until ID sees the patient. Diabetes mellitus Insulin sliding scale ordered Obstructive sleep apnea The patient had a sleep study done in November 2018 which confirmed this. She is working with pulmonary as an outpatient to obtain a device for pressure therapy We will place the patient on KASIA protocol GERD Continue PPI Chronic pain Continue meds as ordered Dyslipidemia Continue statin Continue tobacco abuse The patient admits to smoking 2 packs per day since the age of 11 States that she has been smoking a quarter pack a day for the last several months. Counseled on the need to stop smoking DVT prophylaxis Lovenox subcutaneous ROBERTA CONDON MD February 28, 2019 16:59
[2019-02-28] MEDS: HumaLOG INSULIN (NovoLOG) PER UNIT SC SCH ×2 (18:20→20:13)
[2019-02-28] MEDS: CYANOCOBALAMIN 500 MCG TAB PO SCH (20:01)
[2019-02-28] MEDS: CETIRIZINE (ZyrTEC) 10 MG TAB PO SCH (20:01)
[2019-02-28] MEDS: DULoxetine 30 MG CAP (CYMBALTA) PO SCH (20:02)
[2019-02-28] MEDS: OMEPRAZOLE 20 MG CAP PO SCH (20:02)
[2019-02-28] MEDS: ATORVASTATIN 20 MG TAB PO SCH (20:02)
[2019-02-28] MEDS ORDERED: DULoxetine 30 MG CAP (CYMBALTA) PO SCH (21:00)
[2019-02-28] MEDS ORDERED: SYMBICORT 160/4.5MCG INHALER 6GM INH SCH (21:00)
[2019-03-01] VITALS (21 sets, daily range): BP systolic 101–160; BP diastolic 55–74; O2SAT 89–96
[2019-03-01] MEDS ORDERED: PILL CUTTER 1 EACH XX PRN (00:30)
[2019-03-01] MEDS: traMADol 50 MG TAB PO PRN ×3 (00:36→18:05)
[2019-03-01] MEDS: IPRATROPIUM 0.5MG/ALBUTEROL 2.5MG INH SOL UD 3ML (DUONEB)(J7620) NEB SCH ×5 (03:20→18:31)
[2019-03-01 05:40] LABS: HEMOGLOBIN 12.2 g/dl (12.0-15.5); MEAN CORPUSCULAR HEMOGLOBIN 29.2 pg (27.0-33.0); MEAN CORPUSCULAR HGB CONC 32.1 g/dl (32.0-36.5); MEAN CORPUSCULAR VOLUME 90.9 fl (80.0-96.0); PLATELET COUNT, AUTOMATED 359 10^3/uL (150-450); RED BLOOD COUNT 4.18 10^6/uL (4.00-5.40); WHITE BLOOD COUNT 21.8 10^3/uL (4.0-10.0)
[2019-03-01] MEDS: methylPREDNISolone INJ 40 MG/1 ML VIAL (J2920) IV SCH ×2 (05:49→18:04)
[2019-03-01 06:07] LABS: CALCIUM LEVEL 9.9 MG/DL (8.5-10.1); CREATININE FOR GFR 1.42 MG/DL (0.55-1.30); GLOMERULAR FILTRATION RATE 40.7 (>51); MAGNESIUM LEVEL 1.6 MG/DL (1.8-2.4); POTASSIUM SERUM 4.3 MEQ/L (3.5-5.1)
[2019-03-01] MEDS ORDERED: TIOTROPIUM INHALER/CAPSULE (SPIRIVA) INH SCH (08:00)
[2019-03-01] MEDS ORDERED: MAGNESIUM OXIDE 400 MG TAB (MAG-OX) PO ONE (08:00)
[2019-03-01] MEDS ORDERED: NS 2,500 ML IV ONE (08:00)
[2019-03-01] MEDS: HumaLOG INSULIN (NovoLOG) PER UNIT SC SCH ×4 (08:05→20:47)
[2019-03-01] MEDS: ENOXAPARIN 40 MG/0.4 ML SYRINGE (J1650) SC SCH (08:05)
--- NOTE | 2019-03-01 13:55 | IPNPDOC ---
Subjective Date Seen The patient was seen on 03/01/19. Subjective Chief Complaint/HPI Patient seen and examined at the bedside. Reports that her respiratory status is slightly improved. Denies any complaints of nausea/vomiting or diarrhea. Notes that she has been able to tolerate a by mouth diet at this time. Endorses crampy abdominal pain which has been present since December. No overnight events noted. Objective Physical Examination General Exam: Positive: Alert, Cooperative, No Acute Distress ENT Exam: Positive: Atraumatic, Mucous membr. moist/pink Chest Exam: Positive: Diminished; Negative: Rales, Rhonchi Heart Exam: Positive: Rate Normal, Normal S1, Normal S2 Abdomen Exam: Positive: Soft, Tenderness (mild tenderness to deep diffuse palpation in all quadrants. No rebound tenderness, guarding, or rigidity noted.) Extremity Exam: Negative: Tenderness, Swelling Psych Exam: Positive: Oriented x 3 Assessment /Plan Plan/VTE VTE Prophylaxis Ordered?: Yes Plan COPD Exacerbation 2/2 CAP CTA Chest notable for RLL infiltrate Sputum culture still pending The patient has been given a dose of IV Levaquin in the ER We will continue the patient on IV steroids, serial inhaler therapy We will continue to down titrate the patient's supplemental oxygen as tolerated Acute Kidney Injury Likely 2/2 Urinary Retention, as the patient endorses that she has been having intermittent Urinary Urgency/Retention, and has followed Urology for this. Patient offered [place] Catheter here due to worsening renal function since yesterday, however she has declined. She is agreeable to straight catheterization for post void residuals >250 cc's IVF Hydration ordered We will hold any nephrotoxins We will cont to monitor her Renal Function 4mm nodule in the RUL Possibly inflammatory in nature Discussed the findings with the patient and the need to follow-up as an outpatient for a repeat CT of the chest to monitor for resolution versus the need to further follow-up and investigate for possible mass. The patient verbalized understanding of the same, and notes that she will follow up as an outpatient for this. Leukocytosis 2/2 IV Steroids Will cont to monitor History of C. difficile The patient tells me that she was diagnosed with C. difficile at the end of December and was treated with a 10 day course of Vanco/Flagyl (this was completed on 12/28/18, as confirmed with her Pharmacy). She was apparently scheduled to get a stool transplant with Dr. Jones of GI on March 06. She was also scheduled to follow-up with Dr. Shannon of ID as an outpatient The patient endorses that she continues to have 5-6 loose stools daily with generalized abdominal pain. However, denies any loose BMs here since admission. She also denies any nausea or vomiting at this time. ID consulted further management of antibiotics. The patient did receive 1 dose of IV Levaquin in the ER, we will hold off on further antibiotic therapy until ID sees the patient. Diabetes mellitus Insulin sliding scale ordered Obstructive sleep apnea The patient had a sleep study done in November 2018 which confirmed this. She is working with pulmonary as an outpatient to obtain a device for pressure therapy We will place the patient on KASIA protocol GERD Continue PPI Chronic pain Continue meds as ordered Dyslipidemia Continue statin Continue tobacco abuse The patient admits to smoking 2 packs per day since the age of 11 States that she has been smoking a quarter pack a day for the last several months. Counseled on the need to stop smoking DVT prophylaxis Lovenox subcutaneous VS, I&O, 24H, Fishbone Vital Signs/I&O Vital Signs Date Time Temp Pulse Resp B/P (MAP) Pulse Ox O2 Delivery O2 Flow Rate FiO2 03/01/19 13:00 90 Nasal Cannula 1.0 03/01/19 12:00 98.2 87 19 146/62 (90) I&O- Last 24 Hours up to 6 AM 03/01/19 06:00 Intake Total 630 ml Output Total 500 ml Balance 130 ml Laboratory Data 24H LABS Laboratory Tests 2 02/28/19 16:34: Bedside Glucose (Misc Panel) 343H 02/28/19 20:08: Bedside Glucose (Misc Panel) 299H 03/01/19 05:22: Nucleated Red Blood Cells % (auto) 0.0, Anion Gap 11, Glomerular Filtration Rate 40.7L, Blood Urea Nitrogen 21#H, Creatinine 1.42#H, Sodium Level 135L, Potassium Level 4.3, Chloride Level 96L, Carbon Dioxide Level 28, Calcium Level 9.9, Magnesium Level 1.6L 03/01/19 11:51: Bedside Glucose (Misc Panel) 307H CBC/BMP Laboratory Tests 03/01/19 05:22 Red Blood Count 4.18, Mean Corpuscular Volume 90.9, Mean Corpuscular Hemoglobin 29.2, Mean Corpuscular Hemoglobin Concent 32.1, Red Cell Distribution Width 13.9, Calcium Level 9.9 ROBERTA CONDON MD March 01, 2019 13:55
[2019-03-01] MEDS: ATORVASTATIN 20 MG TAB PO SCH (19:55)
[2019-03-01] MEDS: CYANOCOBALAMIN 500 MCG TAB PO SCH (19:55)
[2019-03-01] MEDS: CETIRIZINE (ZyrTEC) 10 MG TAB PO SCH (19:55)
[2019-03-01] MEDS: DULoxetine 30 MG CAP (CYMBALTA) PO SCH (19:55)
[2019-03-01] MEDS: OMEPRAZOLE 20 MG CAP PO SCH (19:55)
[2019-03-02] VITALS (10 sets, daily range): BP systolic 116–159; BP diastolic 64–80; O2SAT 88–94
[2019-03-02] MEDS: IPRATROPIUM 0.5MG/ALBUTEROL 2.5MG INH SOL UD 3ML (DUONEB)(J7620) NEB SCH ×7 (04:00→23:44)
[2019-03-02] MEDS: methylPREDNISolone INJ 40 MG/1 ML VIAL (J2920) IV SCH ×2 (05:12→18:28)
[2019-03-02 05:57] LABS: HEMATOCRIT 36.9 % (36.0-47.0); HEMOGLOBIN 11.8 g/dl (12.0-15.5); MEAN CORPUSCULAR HEMOGLOBIN 29.6 pg (27.0-33.0); MEAN CORPUSCULAR VOLUME 92.5 fl (80.0-96.0); PLATELET COUNT, AUTOMATED 374 10^3/uL (150-450); RED BLOOD COUNT 3.99 10^6/uL (4.00-5.40); WHITE BLOOD COUNT 25.5 10^3/uL (4.0-10.0)
[2019-03-02 06:22] LABS: BLOOD UREA NITROGEN 19 MG/DL (7-18); CALCIUM LEVEL 9.1 MG/DL (8.5-10.1); CARBON DIOXIDE LEVEL 29 MEQ/L (21-32); CHLORIDE LEVEL 101 MEQ/L (98-107); CREATININE FOR GFR 1.16 MG/DL (0.55-1.30); GLOMERULAR FILTRATION RATE 51.4 (>51); GLUCOSE, FASTING 268 MG/DL (70-100); MAGNESIUM LEVEL 1.8 MG/DL (1.8-2.4); POTASSIUM SERUM 4.7 MEQ/L (3.5-5.1); SODIUM LEVEL 137 MEQ/L (136-145)
[2019-03-02] MEDS: HumaLOG INSULIN (NovoLOG) PER UNIT SC SCH ×4 (07:51→20:28)
[2019-03-02] MEDS: ENOXAPARIN 40 MG/0.4 ML SYRINGE (J1650) SC SCH (08:48)
[2019-03-02] MEDS: LEVEMIR (INSULIN DETEMIR) 1 UNITS/0.01ML SC SCH (08:48)
--- NOTE | 2019-03-02 11:25 | IPNPDOC ---
Subjective Date Seen The patient was seen on 03/02/19. Subjective Chief Complaint/HPI Patient seen and examined at the bedside. Reports that her respiratory status is slowly improving, and her supplemental oxygen has been down titrated to 1 L via nasal cannula. However, notes that her cough remains persistent. Objective Physical Examination General Exam: Positive: Alert, Cooperative, No Acute Distress ENT Exam: Positive: Atraumatic, Mucous membr. moist/pink Chest Exam: Positive: Diminished; Negative: Rales, Rhonchi Heart Exam: Positive: Rate Normal, Normal S1, Normal S2 Abdomen Exam: Positive: Soft, Tenderness (mild tenderness to deep diffuse palpation in all quadrants. No rebound tenderness, guarding, or rigidity noted.) Extremity Exam: Negative: Tenderness, Swelling Psych Exam: Positive: Oriented x 3 Assessment /Plan Plan/VTE VTE Prophylaxis Ordered?: Yes Plan COPD Exacerbation 2/2 CAP CTA Chest notable for RLL infiltrate Sputum culture still pending The patient has been given a dose of IV Levaquin in the ER We will continue the patient on IV steroids, serial inhaler therapy We will continue to down titrate the patient's supplemental oxygen as tolerated Follow up Procalcitonin level Will f/u with ID recommendations regarding Abx therapy given Hx of C. Diff Acute Kidney Injury Likely 2/2 Urinary Retention, as the patient endorses that she has been having intermittent Urinary Urgency/Retention, and has followed Urology for this. Renal function improved following IVF Hydration, and close monitoring of post void residuals We will hold any nephrotoxins We will cont to monitor her Renal Function 4mm nodule in the RUL Possibly inflammatory in nature Discussed the findings with the patient and the need to follow-up as an outpatient for a repeat CT of the chest to monitor for resolution versus the need to further follow-up and investigate for possible mass. The patient verbalized understanding of the same, and notes that she will follow up as an outpatient for this. Leukocytosis 2/2 IV Steroids, underlying CAP Will cont to monitor History of C. difficile The patient tells me that she was diagnosed with C. difficile at the end of December and was treated with a 10 day course of Vanco/Flagyl (this was completed on 12/28/18, as confirmed with her Pharmacy). She was apparently scheduled to get a stool transplant with Dr. Jones of GI on March 06. She was also scheduled to follow-up with Dr. Mirtha of ID as an outpatient The patient endorses that she continues to have 5-6 loose stools daily with generalized abdominal pain. However, denies any loose BMs here since admission. She also denies any nausea or vomiting at this time. ID consulted further management of antibiotics. The patient did receive 1 dose of IV Levaquin in the ER for CAP, we will hold of f on further antibiotic therapy until ID sees the patient. Diabetes mellitus Levemir 10 units added due to hyperglycemia from steroid use Insulin sliding scale ordered Obstructive sleep apnea The patient had a sleep study done in November 2018 which confirmed this. She is working with pulmonary as an outpatient to obtain a device for pressure therapy We will place the patient on KASIA protocol GERD Continue PPI Chronic pain Continue meds as ordered Dyslipidemia Continue statin Continue tobacco abuse The patient admits to smoking 2 packs per day since the age of 11 States that she has been smoking a quarter pack a day for the last several months. Counseled on the need to stop smoking DVT prophylaxis Lovenox subcutaneous Dispo--We will cont to downtitrate supplemental oxygen as tolerated. Patient to walk with staff around the corridors. Will f/u ID recommendations. Anticipate D/C Home in 24-48hrs pending continued clinical improvement. VS, I&O, [facility] Sign[facility]/I&O Vital Signs Date Time Temp Pulse Resp B/P (MAP) Pulse Ox O2 Delivery O2 Flow Rate FiO2 03/02/19 08:01 1.0 03/02/19 08:00 98.9 79 16 150/72 (98) 93 03/01/19 18:00 Nasal Cannula I&O- Last 24 Hours up to 6 AM 03/02/19 06:00 Intake Total 2510 ml Output Total 1425 ml Balance 1085 ml Laboratory Data 24H LABS Laboratory Tests 2 03/01/19 11:51: Bedside Glucose (Misc Panel) 307H 03/01/19 17:44: Bedside Glucose (Misc Panel) 303H 03/01/19 19:58: Bedside Glucose (Misc Panel) 329H 03/02/19 05:24: Nucleated Red Blood Cells % (auto) 0.0, Anion Gap 7L, Glomerular Filtration Rate 51.4, Blood Urea Nitrogen 19H, Creatinine 1.16, Sodium Level 137, Potassium Level 4.7, Chloride Level 101, Carbon Dioxide Level 29, Calcium Level 9.1, Magnesium Level 1.8 CBC/BMP Laboratory Tests 03/02/19 05:24 Red Blood Count 3.99 L, Mean Corpuscular Volume 92.5, Mean Corpuscular Hemoglobin 29.6, Mean Corpuscular Hemoglobin Concent 32.0, Red Cell Distribution Width 14.0, Calcium Level 9.1 ROBERTA CONDON MD March 02, 2019 11:25
[2019-03-02 11:26] LABS: C REACTIVE PROTEIN QUANTITATIV < 0.30 MG/DL (0.00-0.30)
[2019-03-02] MEDS ORDERED: SLF 3 ML SYR IV PRN (13:00)
--- NOTE | 2019-03-02 13:44 | REP ---
Chest x-ray: Two views. History: Shortness of breath. Comparison chest x-ray: February 27, 2019. Findings: The lungs are symmetrically aerated and free of infiltrate. Pleural angles are sharp. Heart is not enlarged. There are dorsal column stimulator leads visible in the cervical spine, mid thoracic spine, and lower thoracic spine. EKG electrodes are seen. Heart is not enlarged. There are degenerative changes in the thoracic spine. Pulmonary vasculature is not increased. Impression: No active disease. Electronically Signed by Cyril Saldana MD 03/02/2019 04:02 P
[2019-03-02] MEDS: SLF 3 ML SYR IV SCH ×2 (14:17→22:00)
[2019-03-02] MEDS: ATORVASTATIN 20 MG TAB PO SCH (20:27)
[2019-03-02] MEDS: CETIRIZINE (ZyrTEC) 10 MG TAB PO SCH (20:27)
[2019-03-02] MEDS: OMEPRAZOLE 20 MG CAP PO SCH (20:27)
[2019-03-02] MEDS: CYANOCOBALAMIN 500 MCG TAB PO SCH (20:28)
[2019-03-02] MEDS: DULoxetine 30 MG CAP (CYMBALTA) PO SCH (20:28)
--- NOTE | 2019-03-02 22:41 | CR ---
DATE OF CONSULTATION: 03/02/2019 Asked to consult by Dr. Ashraf for evaluation of question right lower lobe pneumonia, history of recurrent urinary tract infection, and Clostridium (C) difficile and antibiotic management. HISTORY OF PRESENT ILLNESS: Jessi Baptiste is a 58-year-old female with a history of tobacco abuse, chronic obstructive pulmonary disease (COPD), and recurrent urinary tract infection. Reviewing of her culture report, she has had at least five different Escherichia (E) coli urine cultures in the past 5 months. The patient presented to the emergency room complaining of increasing shortness of breath with cough productive of greenish phlegm. She was having symptoms for about 1 week prior to admission. She had been treated for C. difficile by her primary care provider with vancomycin. Not sure what other antibiotics she has received over the past 5 months for urinary tract infection (UTI) and C. difficile. She came to the emergency room and was noted to be wheezy with worsening lower extremity edema, and chest CT showed a right lower lobe infiltrate. Chest x-ray had not been done. The patient was admitted. She received one dose of levofloxacin, which was later discontinued. PAST MEDICAL HISTORY: Significant for: 1. Hypertension. 2. Dyslipidemia. 3. Diabetes. 4. Reflex sympathetic dystrophy after a fall playing in the backyard with her children when they were younger. 5. Overactive bladder. 6. Recurrent urinary tract infection, mostly E. Coli. 7. COPD, not oxygen or steroid dependent. 8. Recent diagnosis of sleep apnea, but she has not received her continuous positive airway pressure (CPAP) mask yet. 9. C. difficile colitis 12/11/2018. 10. Human papillomavirus (HPV) on Pap smears. ALLERGIES: PENICILLIN, ASPIRIN BUPROPION, CODEINE, GABAPENTIN, HYDROCHLOROTHIAZIDE, LISINOPRIL, PREGABALIN, NIACIN, OXYCODONE, FUROSEMIDE, CLARITHROMYCIN. SOCIAL HISTORY: She smokes at least half a pack half a pack of cigarettes a day. She smoked two packs of cigarettes a day over 45 years. Denies alcohol or drug use. REVIEW OF SYSTEMS: She has a middle-aged woman in no acute distress. Temperature is 99.5, pulse 89, respirations 18, blood pressure 159/80, oxygen saturation 98% on 0.5 liters. HEART: Normal S1, S2. No murmurs, rubs, or gallops. LUNGS: Diffuse expiratory wheezes bilaterally with decreased air entry. ABDOMEN: Obese, soft, tender in the right lower quadrant. BACK: No costovertebral angle (CVA) lumbosacral tenderness. EXTREMITIES: Trace edema bilaterally. NEUROLOGIC: Alert, oriented times three. Motor strength normal. Oropharynx: Dry mucosa. Upper dentures. No lower dentures. Edentulous. No thrush. NECK: Supple. No adenopathy. LABORATORY DATA: On admission, white count was 15.4, today was 25.5, hemoglobin 11.8, hematocrit 36.9, platelets 374. Sodium 137, potassium 4.7, chloride 101, bicarbonate 29 BUN 19, creatinine 1.16, glucose was 68, calcium 9.1, mg 1.8. C-reactive protein less than 0.3. C. difficile was positive on 12/11/2018. IMAGING STUDIES: CT angiogram showed a questionable early infiltrate in the right lower lobe. No pulmonary embolus. Bronchial, 4 mm nodule, right upper lobe, maybe inflammatory. IMPRESSION: This is a 58-year-old female with a history of recurrent urinary tract infections documented in October, November, December, and January, all of E. coli, same pathogen, has persistent right lower quadrant pain and pelvic pressure. Urinalysis is suggestive of a urinary tract infection. She presents with increased pulmonary symptoms, worsening cough, and shortness of breath, but chest x-ray ordered for today does not show any acute infiltrate. I suspect this is more chronic obstructive pulmonary disease (COPD) exacerbation than pneumonia. Her C-reactive protein (CRP) is less than 0.3. At this point, the patient does not have C. difficile colitis. She has not had a bowel movement since she presented yesterday. PLAN: Obtain urinalysis (UA), urine culture. Will order fosfomycin susceptibility on her E. Coli. If that grows and if she needs to be treated, fosfomycin would be an appropriate drug for her with narrow spectrum hopefully decreasing her risk of C. difficile. 2. Sputum Gram stain and culture. 3. Chest x-ray, PA and lateral, was ordered. 4. Procalcitonin was ordered. If less than 0.25, the chances of this being bacterial infection is less likely. 5. If patient has persistent abdominal pain, please obtain CT abdomen and pelvis.
[2019-03-03] VITALS (14 sets, daily range): BP systolic 116–160; BP diastolic 57–86; O2SAT 91–96
[2019-03-03] MEDS: IPRATROPIUM 0.5MG/ALBUTEROL 2.5MG INH SOL UD 3ML (DUONEB)(J7620) NEB SCH ×6 (04:00→23:42)
[2019-03-03 04:20] LABS: HEMOGLOBIN 11.8 g/dl (12.0-15.5); MEAN CORPUSCULAR HEMOGLOBIN 29.2 pg (27.0-33.0); MEAN CORPUSCULAR HGB CONC 31.9 g/dl (32.0-36.5); MEAN CORPUSCULAR VOLUME 91.6 fl (80.0-96.0); PLATELET COUNT, AUTOMATED 346 10^3/uL (150-450); RED BLOOD COUNT 4.04 10^6/uL (4.00-5.40); WHITE BLOOD COUNT 17.3 10^3/uL (4.0-10.0)
[2019-03-03 04:38] LABS: CALCIUM LEVEL 8.8 MG/DL (8.5-10.1); CREATININE FOR GFR 1.23 MG/DL (0.55-1.30); GLOMERULAR FILTRATION RATE 48.1 (>51); MAGNESIUM LEVEL 1.9 MG/DL (1.8-2.4); POTASSIUM SERUM 3.9 MEQ/L (3.5-5.1)
[2019-03-03] MEDS: methylPREDNISolone INJ 40 MG/1 ML VIAL (J2920) IV SCH ×2 (05:34→18:32)
[2019-03-03] MEDS: SLF 3 ML SYR IV SCH ×3 (05:34→21:26)
[2019-03-03] MEDS: HumaLOG INSULIN (NovoLOG) PER UNIT SC SCH ×4 (07:57→21:25)
[2019-03-03] MEDS: LEVEMIR (INSULIN DETEMIR) 1 UNITS/0.01ML SC SCH (09:02)
[2019-03-03] MEDS: ENOXAPARIN 40 MG/0.4 ML SYRINGE (J1650) SC SCH (09:02)
--- NOTE | 2019-03-03 11:12 | REP ---
Clinical: Generalized abdominal pain. Technique: Axial noncontrast images from the lung bases to the pubic symphysis coronal and sagittal re-formations. Comparison: 07/14/2018. Findings: Lung bases are clear. Liver, spleen, pancreas, bilateral adrenal glands and kidneys are relatively normal / stable for noncontrast evaluation. Splenic calcifications consistent with granulomas disease. Chronic scarring along the lateral aspect of the left kidney with small calcification again identified. Evidence of prior cholecystectomy. The enteric system is without obstruction or acute inflammatory process. Pelvis demonstrates normal bladder and evidence of prior hysterectomy. No ascites. No free air. No adenopathy. Abdominal aorta without aneurysm. Neural stimulator is identified implanted within the bilateral flank. Osseous structures without acute injury. Impression: 1. No acute abdominopelvic pathology appreciated. Specifically, no ascites, focal inflammatory changes or adenopathy. 2. Chronic changes as described above. Electronically Signed by Rickie Harmon MD 03/03/2019 11:04 A
--- NOTE | 2019-03-03 13:22 | IPNPDOC ---
Subjective Date Seen The patient was seen on 03/03/19. Subjective Chief Complaint/HPI Patient seen and examined at bedside. Reports that her respiratory status continues to improve. Denies any episodes of diarrhea. However, continues to complain of generalized abdominal pain. Objective Physical Examination General Exam: Positive: Alert, Cooperative, No Acute Distress ENT Exam: Positive: Atraumatic, Mucous membr. moist/pink Chest Exam: Positive: Diminished; Negative: Rales, Rhonchi Heart Exam: Positive: Rate Normal, Normal S1, Normal S2 Abdomen Exam: Positive: Soft, Tenderness (mild tenderness to deep diffuse palpation in all quadrants. No rebound tenderness, guarding, or rigidity noted.) Extremity Exam: Negative: Tenderness, Swelling Psych Exam: Positive: Oriented x 3 Assessment /Plan Plan/VTE VTE Prophylaxis Ordered?: Yes Plan COPD Exacerbation 2/2 CAP CTA Chest notable for RLL infiltrate, however follow-up chest x-ray on 03/02/19 with no acute infiltrate noted Sputum culture still pending Continue the patient on IV steroids, serial inhaler therapy We will continue to down titrate the patient's supplemental oxygen as tolerated Follow up Procalcitonin level We will keep off of antibiotics for now as per ID Acute Kidney Injury Likely 2/2 Urinary Retention, as the patient endorses that she has been having intermittent Urinary Urgency/Retention for the past 5 months, and has followed Urology for this. Renal function improved following IVF Hydration, and close monitoring of post void residuals We will hold any nephrotoxins We will cont to monitor her Renal Function 4mm nodule in the RUL Possibly inflammatory in nature Discussed the findings with the patient and the need to follow-up as an outpatient for a repeat CT of the chest to monitor for resolution versus the need to further follow-up and investigate for possible mass. The patient verbalized understanding of the same, and notes that she will follow up as an outpatient for this. Leukocytosis 2/2 IV Steroids, underlying CAP Will cont to monitor History of C. difficile The patient tells me that she was diagnosed with C. difficile at the end of December and was treated with a 10 day course of Vanco/Flagyl (this was completed on 12/28/18, as confirmed with her Pharmacy). She was apparently scheduled to get a stool transplant with Dr. Jones of GI on March 06. She was also scheduled to follow-up with Dr. Shannon of ID as an outpatient The patient endorses that she continues to have 5-6 loose stools daily with generalized abdominal pain. However, denies any loose BMs here since admission. She also denies any nausea or vomiting at this time. ID consulted further management of antibiotics. CT abdomen/pelvis with no acute pathology noted Infectious disease input appreciated Urinary Urgency/Retention, Recurrent UTI's UA noted, Reflex Urine Culture notable for contaminant At this time, I am less inclined to think that the patient has a urinary tract infection warranting antibiotic treatment. Rather, the patient has been dealing with the aforementioned symptoms for the last 5 months, and they have not resolved with antibiotic treatment in the past. In addition, recurrent use of antibiotics have resulted in C. difficile infection. At this time, will hold off on antibiotic therapy. Diabetes mellitus Levemir 10 units added due to hyperglycemia from steroid use Insulin sliding scale ordered Obstructive sleep apnea The patient had a sleep study done in November 2018 which confirmed this. She is working with pulmonary as an outpatient to obtain a device for pressure therapy We will place the patient on KASIA protocol GERD Continue PPI Chronic pain Continue meds as ordered Dyslipidemia Continue statin Continue tobacco abuse The patient admits to smoking 2 packs per day since the age of 11 States that she has been smoking a quarter pack a day for the last several months. Counseled on the need to stop smoking DVT prophylaxis Lovenox subcutaneous Dispo--We will cont to downtitrate supplemental oxygen as tolerated. Patient to walk with staff around the corridors. ID recommendations appreciated. Anticipate D/C Home in 24-48hrs pending continued clinical improvement. VS, I&O, 24H, [facility] Vital Signs/I&O Vital Signs Date Time Temp Pulse Resp B/P (MAP) Pulse Ox O2 Delivery O2 Flow Rate FiO2 03/03/19 08:00 99.0 88 22 160/86 (110) 93 03/03/19 07:45 1.0 03/03/19 06:00 Room Air I&O- Last 24 Hours up to 6 AM 03/03/19 06:00 Intake Total 420 ml Output Total 525 ml Balance -105 ml Laboratory Data 24H LABS Laboratory Tests 2 03/02/19 16:55: Bedside Glucose (Misc Panel) 220H 03/02/19 20:10: Bedside Glucose (Misc Panel) 252H 03/03/19 04:07: Nucleated Red Blood Cells % (auto) 0.0, Anion Gap 9, Glomerular Filtration Rate 48.1L, Blood Urea Nitrogen 20H, Creatinine 1.23, Sodium Level 137, Potassium Level 3.9, Chloride Level 98, Carbon Dioxide Level 30, Calcium Level 8.8, M agnesium Level 1.9 03/03/19 11:36: Bedside Glucose (Misc Panel) 312H CBC/BMP Laboratory Tests 03/03/19 04:07 Red Blood Count 4.04, Mean Corpuscular Volume 91.6, Mean Corpuscular Hemoglobin 29.2, Mean Corpuscular Hemoglobin Concent 31.9 L, Red Cell Distribution Width 14.0, Calcium Level 8.8 Microbiology Microbiology 03/02/19 Gram Stain - Final, Resulted 03/02/19 Sputum Culture, Resulted Pending 03/02/19 Urine Culture - Final, Complete ROBERTA CONDON MD Mar 03, 2019 13:22
[2019-03-03] MEDS: DOCUSATE SODIUM 100 MG CAP PO SCH ×2 (13:55→21:25)
[2019-03-03] MEDS: CETIRIZINE (ZyrTEC) 10 MG TAB PO SCH (21:25)
[2019-03-03] MEDS: CYANOCOBALAMIN 500 MCG TAB PO SCH (21:26)
[2019-03-03] MEDS: OMEPRAZOLE 20 MG CAP PO SCH (21:26)
[2019-03-03] MEDS: ATORVASTATIN 20 MG TAB PO SCH (21:26)
[2019-03-03] MEDS: DULoxetine 30 MG CAP (CYMBALTA) PO SCH (21:26)
[2019-03-04] MEDS: IPRATROPIUM 0.5MG/ALBUTEROL 2.5MG INH SOL UD 3ML (DUONEB)(J7620) NEB SCH ×2 (03:58→07:20)
[2019-03-04 04:00] VITALS: BP 143/65
[2019-03-04 05:13] LABS: HEMATOCRIT 37.2 % (36.0-47.0); MEAN CORPUSCULAR HEMOGLOBIN 29.2 pg (27.0-33.0); MEAN CORPUSCULAR HGB CONC 32.3 g/dl (32.0-36.5); MEAN CORPUSCULAR VOLUME 90.5 fl (80.0-96.0); PLATELET COUNT, AUTOMATED 330 10^3/uL (150-450); RED BLOOD COUNT 4.11 10^6/uL (4.00-5.40)
[2019-03-04] MEDS: methylPREDNISolone INJ 40 MG/1 ML VIAL (J2920) IV SCH (05:22)
[2019-03-04] MEDS: SLF 3 ML SYR IV SCH (05:22)
[2019-03-04 05:36] LABS: CALCIUM LEVEL 8.7 MG/DL (8.5-10.1); CREATININE FOR GFR 1.13 MG/DL (0.55-1.30); MAGNESIUM LEVEL 1.9 MG/DL (1.8-2.4); POTASSIUM SERUM 4.6 MEQ/L (3.5-5.1)
[2019-03-04 08:00] VITALS: BP 174/77
[2019-03-04] MEDS: ENOXAPARIN 40 MG/0.4 ML SYRINGE (J1650) SC SCH (08:21)
[2019-03-04] MEDS: LEVEMIR (INSULIN DETEMIR) 1 UNITS/0.01ML SC SCH (08:22)
[2019-03-04] MEDS: HumaLOG INSULIN (NovoLOG) PER UNIT SC SCH (08:22)
[2019-03-04] MEDS: DOCUSATE SODIUM 100 MG CAP PO SCH (08:23)
[2019-03-04] MEDS ORDERED: COLA100C5 PO (10:27)
[2019-03-04] MEDS ORDERED: PRED10TA2 PO (10:27)
--- NOTE | 2019-03-04 14:20 | DS.PDOC ---
Discharge Summary General Date of Admission February 28, 2019 at 13:31 Date of Discharge 03/04/19 Specialist/Consultants Involve Dr. Shannon of ID Discharge Summary PROCEDURES PERFORMED DURING STAY: None. ADMITTING/DISCHARGE DIAGNOSES: COPD exacerbation Acute kidney injury 4 mm nodule in the right upper lobe on imaging History of C. difficile Urinary urgency/retention COMPLICATIONS/CHIEF COMPLAINT: Rll Pneumonia. HISTORY OF PRESENT ILLNESS: . 58-year-old female with past medical history of hypertension, dyslipidemia, diabetes mellitus, chronic pain secondary to reflex sympathetic dystrophy, overactive bladder with recurrent UTIs, and COPD not on oxygen at baseline, and continued tobacco use presented to the ER with a chief complaint of worsening shortness of breath over the last 7 days. During this time, the patient stated that she had been having a cough productive of greenish sputum. The patient does admit to smoking 5 cigarettes daily. She came to the ER for complaints of the same a day earlier, and went home prior to being admitted. She was in to see her mattress weaver on the day of admission, and was sent to the ER for further evaluation and management. During the time, the patient denies any complete of chest pain, palpitations, orthopnea, worsening lower extremity edema, or PND. In the ER, an early infiltrate at the right lower lobe was noted on imaging. She w as admitted to the hospitalist service for further management. COPD Exacerbation 2/2 CAP CTA Chest notable for RLL infiltrate, however f/u CXR did not reveal an infiltrate Sputum culture with no acute pathology Procalcitonin level negative-->the patient's symptoms improved with IV Steroids and serial nebulizer therapy. IV Steroids have been transitioned to PO The patient was initially requiring 3L of oxygen, however she has been weaned off of the same and has been noted to be ambulating in the hallways without any shortness of breath. Acute Kidney Injury Likely 2/2 Urinary Retention, as the patient endorsed that she has been having intermittent Urinary Urgency/Retention, and has followed Urology for this. Renal function improved following IVF Hydration, and close monitoring of post void residuals F/U PCP 4mm nodule in the RUL Possibly inflammatory in nature Discussed the findings with the patient and the need to follow-up as an outpatient for a repeat CT of the chest to monitor for resolution versus the need to further follow-up and investigate for possible mass. The patient verbalized understanding of the same, and notes that she will follow up as an outpatient for this. Leukocytosis 2/2 IV Steroids, underlying CAP Improving History of C. difficile The patient tells me that she was diagnosed with C. difficile at the end of December and was treated with a 10 day course of Vanco/Flagyl (this was completed on 12/28/18, as confirmed with her Pharmacy). She was apparently scheduled to get a stool transplant with Dr. Jones of GI on March 06. She was also scheduled to follow-up with Dr. Shannon of ID as an outpatient The patient endorses that she continues to have 5-6 loose stools daily with generalized abdominal pain. However, denies any loose BMs here since admission. She also denies any nausea or vomiting at this time. The patient did not have any loose stools during hospitalization here. CT Abd/Pel with no acute intra-abdominal pathology Follow-up with GI and ID as an outpatient. Urinary Urgency/Retention, Recurrent UTI's UA noted, Reflex Urine Culture notable for contaminant At this time, I am less inclined to think that the patient has a urinary tract infection warranting antibiotic treatment. Rather, the patient has been dealing with the aforementioned symptoms for the last 5 months, and they have not resolved with antibiotic treatment in the past. In addition, recurrent use of antibiotics have resulted in C. difficile infection. At this time, will hold off on antibiotic therapy. Follow-up with urology as an outpatient Diabetes mellitus Continue insulin regimen Obstructive sleep apnea The patient had a sleep study done in November 2018 which confirmed this. She is working with pulmonary as an outpatient to obtain a device for pressure therapy GERD Continue PPI Chronic pain Continue meds as ordered Dyslipidemia Continue statin Continue tobacco abuse The patient admits to smoking 2 packs per day since the age of 11 States that she has been smoking a quarter pack a day for the last several months. Counseled on the need to stop smoking DISCHARGE MEDICATIONS: Please see below. ALLERGIES: Please see below. PHYSICAL EXAMINATION ON DISCHARGE: VITAL SIGNS: Please see below. General Exam: Positive: Alert, Cooperative, No Acute Distress ENT Exam: Positive: Atraumatic, Mucous membr. moist/pink Chest Exam: Positive: Diminished; Negative: Rales, Rhonchi Heart Exam: Positive: Rate Normal, Normal S1, Normal S2 Abdomen Exam: Positive: Soft, Tenderness (mild tenderness to deep diffuse palpation in all quadrants. No rebound tenderness, guarding, or rigidity noted.) Extremity Exam: Negative: Tenderness, Swelling Psych Exam: Positive: Oriented x 3 LABORATORY DATA: Please see below. IMAGING: CT PULMONARY ANGIOGRAM: With IV contrast. HISTORY: Hypoxia. Rule out pulmonary embolus. COMPARISON STUDIES: Comparison is made with yesterday's portable chest x-ray. Comparison CT angiography of the chest is from April 13, 2017. CONTRAST DOSE: 75 mL of Isovue [address] TECHNIQUE: Helical scanning is acquired and overlapping 1.5 mm and contiguous 3 mm axial images are reformatted. In addition, maximum intensity projection and multiplanar re-formation images are generated in sagittal and coronal imaging projections. CT PULMONARY ANGIOGRAPHIC FINDINGS: There is good opacification in the pulmonary arterial tree. There is no vessel cutoff or filling defect to suggest a pulmonary embolism. Maximal intensity projection images show no abnormal pulmonary arterial tree. The thoracic aorta enhances homogeneously and is normal in course and caliber. No aneurysm or dissection is appreciated. There is no evidence of pleural or pericardial effusion. There are multiple granulomatous calcifications within the spleen. The gallbladder is surgically absent. No adrenal lesion is seen. No hilar or mediastinal mass is seen. There are a few stable normal-sized mediastinal lymph nodes. No adenopathy is seen. There is a subtle infiltrate pattern with a tree-in-bud peribronchovascular density pattern in the right lower lobe consistent with early pneumonia. There is some peribronchial thickening in the right lower lobe as well. These changes are new. There is a single nodular opacity in the right upper lobe peripherally which may be inflammatory as well. It was not present previously. It measures 4 mm in greatest diameter. No acute bony abnormality is appreciated. There is a dorsal column stimulator noted in the thoracic spine. IMPRESSION: No CT evidence of pulmonary embolus. Early infiltrate right lower lobe. Peribronchovascular 4 mm nodule right upper lobe may be inflammatory as well. Otherwise no acute disease. Dorsal column stimulator in the thoracic spine. Chest x-ray: Two views. History: Shortness of breath. Comparison chest x-ray: February 27, 2019. Findings: The lungs are symmetrically aerated and free of infiltrate. Pleural angles are sharp. Heart is not enlarged. There are dorsal column stimulator leads visible in the cervical spine, mid thoracic spine, and lower thoracic spine. EKG electrodes are seen. Heart is not enlarged. There are degenerative changes in the thoracic spine. Pulmonary vasculature is not increased. Impression: No active disease. Clinical: Generalized abdominal pain. Technique: Axial noncontrast images from the lung bases to the pubic symphysis coronal and sagittal re-formations. Comparison: 07/14/2018. Findings: Lung bases are clear. Liver, spleen, pancreas, bilateral adrenal glands and kidneys are relatively normal / stable for noncontrast evaluation. Splenic calcifications consistent with granulomas disease. Chronic scarring along the lateral aspect of the left kidney with small calcification again identified. Evidence of prior cholecystectomy. The enteric system is without obstruction or acute inflammatory process. Pelvis demonstrates normal bladder and evidence of prior hysterectomy. No ascites. No free air. No adenopathy. Abdominal aorta without aneurysm. Neural stimulator is identified implanted within the bilateral flank. Osseous structures without acute injury. Impression: 1. No acute abdominopelvic pathology appreciated. Specifically, no ascites, focal inflammatory changes or adenopathy. 2. Chronic changes as described above. PROGNOSIS: Fair ACTIVITY: As tolerated. DIET: Carb consistent diet DISCHARGE PLAN: DISPOSITION: 01 Home, Self-Care. DISCHARGE INSTRUCTIONS: Follow-up with PCP within 1 week. Follow-up with ID and GI as scheduled. Return to the ER for any acute emergencies. DISCHARGE CONDITION: Stable. TIME SPENT ON DISCHARGE: Greater than 30 minutes. Vital Signs/I&Os Vital Signs Date Time Temp Pulse Resp B/P (MAP) Pulse Ox O2 Delivery O2 Flow Rate FiO2 03/04/19 08:00 99.9 70 20 174/77 (109) 93 03/03/19 16:00 Room Air 03/03/19 07:45 1.0 I&O- Last 24 Hours up to 6 AM 03/04/19 05:59 Intake Total 900 ml Output Total 1500 ml Balance -600 ml Laboratory Data Labs 24H Laboratory Tests 2 03/03/19 16:38: Bedside Glucose (Misc Panel) 261H 03/03/19 20:08: Bedside Glucose (Misc Panel) 264H 03/04/19 04:48: Nucleated Red Blood Cells % (auto) 0.1H, Anion Gap 9, Glomerular Filtration Rate 53.0, Blood Urea Nitrogen 20H, Creatinine 1.13, Sodium Level 137, Potassium Level 4.6, Chloride Level 99, Carbon Dioxide Level 29, Calcium Level 8.7, Magnesium Level 1.9 CBC/BMP Laboratory Tests 03/04/19 04:48 Red Blood Count 4.11, Mean Corpuscular Volume 90.5, Mean Corpuscular Hemoglobin 29.2, Mean Corpuscular Hemoglobin Concent 32.3, Red Cell Distribution Width 14.0, Calcium Level 8.7 FSBS Laboratory Tests Test 03/03/19 16:38 03/03/19 20:08 Range/Units Bedside Glucose (Misc Panel) 261 264 70-105 MG/DL Microbiology Microbiology 03/02/19 Gram Stain - Final, Complete 03/02/19 Sputum Culture - Final, Complete 03/02/19 Urine Culture - Final, Complete Discharge Medications Scheduled Atorvastatin Calcium (Atorvastatin Calcium) 40 Mg Tab, 40 MG PO QHS, (Reported) Budesonide/Formoterol (Symbicort 160-4.5 Mcg Inhaler) 60 Puff/Inhaler Aers, 2 PUFF INH BID, (Reported) Cetirizine HCl (Cetirizine HCl) 10 Mg Tab, 10 MG PO QHS, (Reported) Conjugated Estrogens (Premarin) 1 Dose/30 Gm Cr, 0.5 GRAM PV 2XW, (Reported) TUESDAY/TUESDAY AT BEDTIME Cyanocobalamin (Vitamin B-12) (Vitamin B-12) 1,000 Mcg Tab, 1,000 MCG PO QHS, (Reported) Docusate Sodium (Colace) 100 Mg Capsule, 1 CAP PO BID Duloxetine Hcl (Cymbalta) 60 Mg Cap, 60 MG PO QHS, (Reported) TAKES WITH 30MG DOSE FOR 90MG TOTAL Duloxetine Hcl (Duloxetine HCl) 30 Mg Capsule.dr, 30 MG PO QHS, (Reported) TAKES WITH 60MG DOSE FOR 90MG TOTAL Ergocalciferol (Vitamin D2) (Vitamin D2) 50,000 Unit Cap, 50,000 UNITS PO QWEEK, (Reported) THURSDAYS Folic Acid (Folic Acid) 800 Mcg Tab, 800 MCG PO QHS, (Reported) Glipizide (Glipizide ER) 5 Mg Tab.er.24, 5 MG PO QHS, (Reported) Metformin HCl (Metformin HCl ER) 500 Mg Tab.er.24h, 2,000 MG PO QPM, (Reported) Methenamine Hippurate (Methenamine Hippurate) 1 Gm Tablet, 1 GM PO QHS, (Reported) Omeprazole (Omeprazole) 40 Mg Cap, 40 MG PO QHS, (Reported) Prednisone (Prednisone) 10 Mg Tablet, 10 MG PO TAPER Take 4 tabs daily x 3 days, then 3 tabs daily x 3 days, then 2 tabs daily x 3 days, then 1 tab daily x 3 days and stop Roflumilast (Daliresp) 500 Mcg Tablet, 500 MCG PO QHS, (Reported) Tiotropium Alta (Spiriva) 18 Mcg Cap, 18 MCG INH DAILY, (Reported) Tizanidine HCl (Tizanidine HCl) 2 Mg Tablet, 6 MG PO QHS, (Reported) Trazodone HCl (Trazodone HCl) 100 Mg Tablet, 150 MG PO QHS, (Reported) Umeclidinium Alta (Incruse Ellipta) 62.5 Mcg/Inh Inh, 1 PUFF INH DAILY, (Reported) Scheduled PRN Acetaminophen (Acetaminophen) 500 Mg Tablet, 500 MG PO Q4H PRN for PAIN, (Reported) Albuterol Sulfate (Proair Hfa) 108 Mcg/Act Aer, 2 PUFF INH Q4HP PRN for SOB/WHEEZING, (Reported) Azelastine HCl (Azelastine HCl) 0.1 % Spr, 1 SPRAY NARES DAILY PRN for ALLERGIES, (Reported) Fluconazole (Fluconazole) 150 Mg Tab, 150 MG PO ASDIRECTED PRN for ITCHING, (Reported) Fluticasone Propionate (Flonase Allergy Relief) 50 Mcg/Act Spr, 1 SPRAY NARES DAILY PRN for ALLERGIES, (Reported) Furosemide (Furosemide) 20 Mg Tab, 40 MG PO DAILY PRN for FLUID RETENTION, (Reported) Hydroxyzine HCl (Hydroxyzine HCl) 25 Mg Tab, 25 MG PO Q4HP PRN for ANXIETY, (Reported) Ipratropium/Albuterol Sulfate (Iprat-Albut 0.5-3(2.5) mg/3 ml) 1 Janelle Janelle, 1 VIAL NEB Q6H PRN for SHORTNESS OF BREATH, (Reported) Allergies Coded Allergies: Penicillins (Verified Allergy, Intermediate, THROAT SWELLS, 02/27/19) aspirin (Verified Allergy, Intermediate, HIVES, 02/27/19) bupropion (Verified Allergy, Intermediate, THROAT SWELLS, 02/27/19) codeine (Verified Allergy, Intermediate, THROAT SWELLING, 02/27/19) gabapentin (Verified Allergy, Intermediate, THROAT SWELLS, 02/27/19) hydrochlorothiazide (Verified Allergy, Intermediate, NECK AND THROAT SWELLING, 02/27/19) lisinopril (Verified Allergy, Intermediate, NECK AND TONGUE SWELLING, 02/27/19) pregabalin (Verified Allergy, Intermediate, THROAT SWELLING, 02/27/19) niacin (Verified Allergy, Mild, RASH, 02/27/19) oxycodone (Verified Allergy, Mild, HIVES, 02/27/19) latex (Verified Allergy, Unknown, 03/02/19) powder in latex gloves ranitidine (Verified Allergy, Unknown, 03/02/19) furosemide (Verified Adverse Reaction, Intermediate, DIARRHEA, 02/27/19) clarithromycin (Verified Adverse Reaction, Unknown, YEAST INFECTION, 02/27/19) ROBERTA CONDON MD Mar 04, 2019 14:20
== END 2019-03-04 10:57 | disposition home or self-care (01) | DRG 140 ==
LOC: M ED 09:13 → M ED INP 13:31 → M PCU 15:43
PROVIDERS: ADMIT Internal Medicine; ATTEND Internal Medicine
DX: J44.1 Chronic obstructive pulmonary disease with (acute) exacerbation (principal); N17.9 Acute kidney failure, unspecified; E11.65 Type 2 diabetes mellitus with hyperglycemia; I10 Essential (primary) hypertension; E78.5 Hyperlipidemia, unspecified; N32.81 Overactive bladder; G47.33 Obstructive sleep apnea (adult) (pediatric); K21.9 Gastro-esophageal reflux disease without esophagitis; G89.29 Other chronic pain; R33.9 Retention of urine, unspecified; F17.210 Nicotine dependence, cigarettes, uncomplicated; R39.15 Urgency of urination; R91.1 Solitary pulmonary nodule; Z79.84 Long term (current) use of oral hypoglycemic drugs; Z79.899 Other long term (current) drug therapy; Z88.0 Allergy status to penicillin; Z88.1 Allergy status to other antibiotic agents; Z88.5 Allergy status to narcotic agent; Z88.6 Allergy status to analgesic agent; Z88.8 Allergy status to other drugs, medicaments and biological substances

== ENCOUNTER → 2019-03-14 | Outpatient (REF) | payer OTHER ==
[~2019-03-14] MED LIST changes: +APAP500T10 PO; +COLA100C5 PO; +DALI1TAB2 PO; +DULO1CAP2 PO; +GLIP5TAB20 PO; +METF500T4 PO; +METH-855 PO; +PRED10TA2 PO; +TIZA2TA PO; +TRAZ-163 PO
[2019-03-14 17:20] LABS: ALT/SGPT 21 U/L (12-78); BILIRUBIN,TOTAL 0.5 MG/DL (0.2-1.0); BLOOD UREA NITROGEN 17 MG/DL (7-18); CALCIUM LEVEL 8.7 MG/DL (8.5-10.1); CARBON DIOXIDE LEVEL 32 MEQ/L (21-32); CHLORIDE LEVEL 105 MEQ/L (98-107); CREATININE FOR GFR 0.94 MG/DL (0.55-1.30); GLOMERULAR FILTRATION RATE > 60.0 (>51); GLUCOSE, FASTING 173 MG/DL (70-100); POTASSIUM SERUM 3.9 MEQ/L (3.5-5.1); SODIUM LEVEL 143 MEQ/L (136-145)
[2019-03-14 17:21] LABS: ALBUMIN 3.3 GM/DL (3.2-5.2); TOTAL PROTEIN 6.4 GM/DL (6.4-8.2)
[2019-03-14 17:32] LABS: HEMATOCRIT 37.8 % (36.0-47.0); HEMOGLOBIN 11.7 g/dl (12.0-15.5); MEAN CORPUSCULAR HEMOGLOBIN 29.8 pg (27.0-33.0); MEAN CORPUSCULAR VOLUME 96.4 fl (80.0-96.0); PLATELET COUNT, AUTOMATED 326 10^3/uL (150-450); RED BLOOD COUNT 3.92 10^6/uL (4.00-5.40); WHITE BLOOD COUNT 11.9 10^3/uL (4.0-10.0)
[2019-03-14 17:40] LABS: HEMOGLOBIN A1c 8.3 %
[2019-03-14 18:31] LABS: EOSINOPHILS 1 % (0-5); LYMPHOCYTES 44 % (16-52); MONOCYTES 2 % (0-8); NEUTROPHILS 53 % (35-75)
[2019-03-14 18:32] LABS: PLATELET ESTIMATE NORMAL (NORMAL)
== END ==
LOC: M LAB REF 16:33
PROVIDERS: ATTEND Nurse Practitioner Adult Health
DX: Z13.9 Encounter for screening, unspecified (principal)

== ENCOUNTER → 2019-04-02 | Outpatient (REF) | payer OTHER ==
[2019-04-02 13:49] LABS: APPEARANCE, URINE TURBID (CLEAR); BACTERIA, URINE AUTO 3+ (NEGATIVE); BILIRUBIN, URINE AUTO 1+ (NEGATIVE); BLOOD, URINE BLOOD NEGATIVE (NEGATIVE); COLOR, URINE AMBER (YELLOW); GLUCOSE, URINE (UA) AUTO NEGATIVE (NEGATIVE); GRANULAR CAST, URINE AUTO 20 /LPF; KETONE, URINE AUTO TRACE mg/dL (NEGATIVE); LEUKOCYTE ESTERASE, URINE AUTO 3+ (NEGATIVE); MUCUS, URINE SMALL (NEGATIVE); NITRITE, URINE AUTO NEGATIVE (NEGATIVE); PROTEIN, URINE AUTO 2+ mg/dL (NEGATIVE); RBC, URINE AUTO 34 /HPF (0-3); SPECIFIC GRAVITY URINE AUTO 1.025 (1.002-1.035); SQUAMOUS EPITHELIAL CELL UR AU 2 /HPF (0-6); URIC ACID CRYSTALS SMALL; WBC, URINE AUTO TNTC /HPF (0-3)
== END ==
LOC: M LAB REF 13:07
PROVIDERS: ATTEND Nurse Practitioner Adult Health
DX: R33.8 Other retention of urine (principal)

== ENCOUNTER → 2019-04-12 | Outpatient (CLI) | payer OTHER ==
[~2019-04-12] MED LIST changes: -DULO1CAP2 PO; +DULO1CAP5 PO
[2019-04-12 11:46] LABS: BLOOD UREA NITROGEN 10 MG/DL (7-18); CREATININE FOR GFR 0.88 MG/DL (0.55-1.30); GLOMERULAR FILTRATION RATE > 60.0 (>51)
== END ==
LOC: M LAB 10:47
PROVIDERS: ATTEND Physician Assistant Medical
DX: Z00.00 Encounter for general adult medical examination without abnormal findings (principal); M54.5 Low back pain; M54.6 Pain in thoracic spine

== ENCOUNTER → 2019-04-16 | Outpatient (CLI) | payer OTHER ==
[~2019-04-16] MED LIST changes: +BREO1INH INH; -FENO145T13 PO; +FENO145T7 PO; +MACR100C43 PO; +METF-791 PO; -METF500T4 PO; -OMEP40CA2 PO; +OMEP40CA97 PO; -TRAZ-163; -TRAZ-163 PO; +TRAZ-257; +TRAZ-257 PO
[2019-04-16 11:46] LABS: HEMATOCRIT 39.7 % (36.0-47.0); HEMOGLOBIN 12.8 g/dl (12.0-15.5); MEAN CORPUSCULAR HEMOGLOBIN 28.8 pg (27.0-33.0); MEAN CORPUSCULAR HGB CONC 32.2 g/dl (32.0-36.5); MEAN CORPUSCULAR VOLUME 89.4 fl (80.0-96.0); PLATELET COUNT, AUTOMATED 275 10^3/uL (150-450); RED BLOOD COUNT 4.44 10^6/uL (4.00-5.40)
[2019-04-16 11:56] LABS: INR 0.88; PROTHROMBIN TIME 11.6 SECONDS (11.8-14.0)
[2019-04-16 11:57] LABS: PARTIAL THROMBOPLASTIN TIME 29.2 SECONDS (25.0-38.4)
== END ==
LOC: M LAB 10:56
PROVIDERS: ATTEND Physician Assistant Medical
DX: Z00.00 Encounter for general adult medical examination without abnormal findings (principal); M54.5 Low back pain; M54.6 Pain in thoracic spine

== ENCOUNTER → 2019-04-27 | Outpatient (REF) | payer OTHER ==
[~2019-04-27] MED LIST changes: -BREO1INH INH; +FENO145T13 PO; -FENO145T7 PO; -MACR100C43 PO; -METF-791 PO; +METF500T4 PO; +OMEP40CA2 PO; -OMEP40CA97 PO; +TRAZ-163; +TRAZ-163 PO; -TRAZ-257; -TRAZ-257 PO
[2019-04-27 12:33] LABS: BACTERIA, URINE AUTO 3+ (NEGATIVE); MUCUS, URINE SMALL (NEGATIVE); RBC, URINE AUTO 19 /HPF (0-3); SQUAMOUS EPITHELIAL CELL UR AU 1 /HPF (0-6); WBC, URINE AUTO TNTC /HPF (0-3)
== END ==
LOC: M SMT 11:40
PROVIDERS: ATTEND Specialist
DX: N39.41 Urge incontinence (principal)

== ENCOUNTER → 2019-04-28 | Outpatient (REF) | payer OTHER ==
[2019-04-28 11:18] LABS: CLOSTRIDIUM DIFFICILE PCR POSITIVE (NEGATIVE)
== END ==
LOC: M LAB REF 07:35
PROVIDERS: ATTEND Specialist
DX: N39.41 Urge incontinence (principal)

== ENCOUNTER 2019-05-10 12:50 | Day surgery (SDC) | payer OTHER ==
[~2019-05-10] VITALS: Ht 160 cm; Wt 79.8 kg
[~2019-05-10 12:50] MED LIST changes: +BREO1INH INH; +FECAL MICROBIOTA PREPARATION 250 ML BTL (J3590) XX ONE; +LIDOCAINE 2% INJ 100 MG/5 ML SDV (FOR ANES.) As Ordered ONE; +MACR100C43 PO; +NS 1,000 ML IV ONE; +PROPOFOL 200 MG/20 ML VIAL As Ordered ONE
--- NOTE | 2019-05-10 15:14 | ROOR ---
Patient Name: Jessi Zapata Procedure Date: 05/10/2019 2:48 PM Date of : 1960 Age: 58 Room: [facility] Gender: Female Note Status: Finalized Procedure: Colonoscopy Indications: Fecal transplant for treatment of recurrent Clostridium difficile diarrhea Providers: Ferny PRAEDES MD Referring MD: Luisa DORSEY NP Requesting Provider: Medicines: Monitored Anesthesia Care Complications: No immediate complications. Procedure: Pre-Anesthesia Assessment: - The heart rate, respiratory rate, oxygen saturations, blood pressure, adequacy of pulmonary ventilation, and response to care were monitored throughout the procedure. The Colonoscope was introduced through the anus and advanced to the cecum, identified by appendiceal orifice and ileocecal valve. The colonoscopy was performed without difficulty. The patient tolerated the procedure well. Findings: The decision was made to proceed with fecal microbiota transplant (bacteriotherapy). Donor stool was supplied by [employer] (purchased frozen stool) as per protocol. Approximately 250 mL of the donor stool was instilled in the cecum. A detailed colonoscopic exam could not be performed upon scope withdrawal secondary to limited visibility from the instilled stool. This precludes the ability to screen for colon cancer, and the patient was made aware of this prior to the procedure. Impression: - Fecal Microbiota Transplant (Bacteriotherapy) performed in the cecum. Recommendation: - This stool transplant procedure precludes adequate visual inspection of colon. This exam cannot serve as a colon cancer screening colonoscopy, You will need a screening colonoscopy. Discuss this with your PCP, or call my office to schedule a formal colon cancer screening colonoscopy. - Return to referring physician as previously scheduled. Ferny Paredes MD Ferny PAREDES MD 05/10/2019 3:13:47 PM Electronically signed by Ferny PAREDES MD Number of Addenda: 0 Note Initiated On: 05/10/2019 2:48 PM Estimated Blood Loss: Estimated blood loss: none.
[2019-05-10 15:46] VITALS: BP 135/69
== END 2019-05-10 15:59 | disposition home or self-care (01) ==
LOC: M OPP 12:50
PROVIDERS: ATTEND Internal Medicine Gastroenterology
DX: A04.71 Enterocolitis due to Clostridium difficile, recurrent (principal); E78.5 Hyperlipidemia, unspecified; I10 Essential (primary) hypertension; E11.9 Type 2 diabetes mellitus without complications; J45.909 Unspecified asthma, uncomplicated; F32.9 Major depressive disorder, single episode, unspecified; F41.9 Anxiety disorder, unspecified; F42.9 Obsessive-compulsive disorder, unspecified; R60.0 Localized edema; K21.9 Gastro-esophageal reflux disease without esophagitis; F43.10 Post-traumatic stress disorder, unspecified; M19.90 Unspecified osteoarthritis, unspecified site; G90.50 Complex regional pain syndrome I, unspecified; G43.909 Migraine, unspecified, not intractable, without status migrainosus; Z97.8 Presence of other specified devices; G62.9 Polyneuropathy, unspecified; R56.9 Unspecified convulsions; J44.9 Chronic obstructive pulmonary disease, unspecified; G47.30 Sleep apnea, unspecified; R06.83 Snoring; R32 Unspecified urinary incontinence; F17.200 Nicotine dependence, unspecified, uncomplicated; Z88.8 Allergy status to other drugs, medicaments and biological substances; Z88.5 Allergy status to narcotic agent; Z88.0 Allergy status to penicillin; Z79.899 Other long term (current) drug therapy; Z79.84 Long term (current) use of oral hypoglycemic drugs

== ENCOUNTER 2019-05-15 12:34 | Outpatient (CLI) | payer MEDICARE, OTHER ==
[~2019-05-15] VITALS: Ht 160 cm; Wt 79.8 kg
[~2019-05-15 12:34] MED LIST changes: -FECAL MICROBIOTA PREPARATION 250 ML BTL (J3590) XX ONE; -LIDOCAINE 2% INJ 100 MG/5 ML SDV (FOR ANES.) As Ordered ONE; -NS 1,000 ML IV ONE; -PROPOFOL 200 MG/20 ML VIAL As Ordered ONE
[2019-05-15 13:03] VITALS: BP 133/66
[2019-05-15] MEDS ORDERED: FILTER 1.2 MICRON (ADULT TPN/MANNITOL/REMICADE) XX ONE (14:00)
[2019-05-15] MEDS ORDERED: BEZLOTOXUMAB 800 MG in NS 100 ML IV ONE (14:00)
[2019-05-15 14:55] VITALS: BP 120/57
== END 2019-05-15 14:55 | disposition home or self-care (01) ==
LOC: M INFU 12:34
PROVIDERS: ATTEND Internal Medicine Infectious Disease
DX: A49.8 Other bacterial infections of unspecified site (principal); Z79.899 Other long term (current) drug therapy; Z88.8 Allergy status to other drugs, medicaments and biological substances; F17.210 Nicotine dependence, cigarettes, uncomplicated
CPT/HCPCS: 96365; J0565

== ENCOUNTER → 2019-05-21 | Outpatient (REF) | payer MEDICARE, OTHER ==
[2019-05-21 16:44] LABS: APPEARANCE, URINE CLOUDY (CLEAR); BACTERIA, URINE AUTO 2+ (NEGATIVE); BILIRUBIN, URINE AUTO NEGATIVE (NEGATIVE); BLOOD, URINE BLOOD NEGATIVE (NEGATIVE); COLOR, URINE YELLOW (YELLOW); GLUCOSE, URINE (UA) AUTO NEGATIVE (NEGATIVE); KETONE, URINE AUTO NEGATIVE (NEGATIVE); LEUKOCYTE ESTERASE, URINE AUTO 3+ (NEGATIVE); NITRITE, URINE AUTO NEGATIVE (NEGATIVE); PROTEIN, URINE AUTO NEGATIVE (NEGATIVE); RBC, URINE AUTO 7 /HPF (0-3); SPECIFIC GRAVITY URINE AUTO 1.018 (1.002-1.035); SQUAMOUS EPITHELIAL CELL UR AU 2 /HPF (0-6); UROBILINOGEN, URINE AUTO 0.2 mg/dL (0.0-2.0); WBC, URINE AUTO 178 /HPF (0-3)
== END ==
LOC: M SFHCPLAZ 15:48
PROVIDERS: ATTEND Internal Medicine Infectious Disease
DX: N39.0 Urinary tract infection, site not specified (principal)

== ENCOUNTER → 2019-05-24 | Outpatient (REF) | payer MEDICARE, OTHER ==
[~2019-05-24] MED LIST changes: -FENO145T13 PO; +FENO145T7 PO; +METF-791 PO; -METF500T4 PO; -OMEP40CA2 PO; +OMEP40CA97 PO; -TRAZ-163; -TRAZ-163 PO; +TRAZ-257; +TRAZ-257 PO
[2019-05-24 12:03] LABS: ALBUMIN 3.8 GM/DL (3.2-5.2); ALT/SGPT 18 U/L (12-78); BILIRUBIN,TOTAL 0.4 MG/DL (0.2-1.0); BLOOD UREA NITROGEN 4 MG/DL (7-18); CALCIUM LEVEL 9.7 MG/DL (8.5-10.1); CARBON DIOXIDE LEVEL 30 MEQ/L (21-32); CHLORIDE LEVEL 106 MEQ/L (98-107); CREATININE FOR GFR 0.88 MG/DL (0.55-1.30); GLOMERULAR FILTRATION RATE > 60.0 (>51); GLUCOSE, FASTING 116 MG/DL (70-100); POTASSIUM SERUM 4.5 MEQ/L (3.5-5.1); SODIUM LEVEL 139 MEQ/L (136-145); TOTAL PROTEIN 6.9 GM/DL (6.4-8.2)
[2019-05-24 12:30] LABS: TOTAL 25(OH) VITAMIN D 21.1 NG/ML (30.0-100.0)
[2019-05-24 12:31] LABS: VITAMIN B12 LEVEL 776 PG/ML (247-911)
[2019-05-24 13:13] LABS: HEMOGLOBIN A1c 7.8 %
== END ==
LOC: M LAB REF 11:35
PROVIDERS: ATTEND Nurse Practitioner Adult Health
DX: Z13.9 Encounter for screening, unspecified (principal); Z79.51 Long term (current) use of inhaled steroids; Z79.899 Other long term (current) drug therapy

== ENCOUNTER 2019-05-28 12:06 | Day surgery (SDC) | payer MEDICARE, OTHER ==
[~2019-05-28] VITALS: Ht 157.5 cm; Wt 81.1 kg
[~2019-05-28 12:06] MED LIST changes: +FECAL MICROBIOTA PREPARATION 30 ML BTL (J3590) XX ONE; +NS 1,000 ML IV ONE
[2019-05-28] MEDS ORDERED: propofoL 200 MG/20 ML VIAL As Ordered ONE ×2 (13:23→13:40)
[2019-05-28] MEDS ORDERED: LIDOCAINE 2% INJ 100 MG/5 ML SDV (FOR ANES.) As Ordered ONE (13:23)
--- NOTE | 2019-05-28 13:49 | ROOR ---
Patient Name: Jessi Zapata Procedure Date: 05/28/2019 1:30 PM Date of : 1960 Age: 58 Room: [facility] Gender: Female Note Status: Finalized Procedure: Upper GI endoscopy Indications: Therapeutic procedure, Heartburn, Diarrhea, presumed infectious, Endoscopy to assess diarrhea in patient suspected of having disease of the small-bowel Providers: Ferny PAREDES MD Referring MD: Luisa DORSEY NP Requesting Provider: Medicines: Monitored Anesthesia Care Complications: No immediate complications. Procedure: Pre-Anesthesia Assessment: - The heart rate, respiratory rate, oxygen saturations, blood pressure, adequacy of pulmonary ventilation, and response to care were monitored throughout the procedure. The Endoscope was introduced through the mouth, and advanced to the third part of duodenum. The upper GI endoscopy was accomplished without difficulty. The patient tolerated the procedure well. Findings: The esophagus was normal. The stomach was normal. The examined duodenum was normal. Successful Stool Transplantation performed. Impression: - Normal esophagus. - Normal stomach. - Normal examined duodenum. - Successful Stool Transplantation performed to the third portion of duodenum. - No specimens collected. Recommendation: - Observe patient's clinical course. - I anticipate no further need for intervention. - Telephone endoscopist if symptomatic PRN. Ferny Paredes MD Ferny PAREDES MD 05/28/2019 1:49:12 PM Electronically signed by Ferny PAREDES MD Number of Addenda: 0 Note Initiated On: 05/28/2019 1:30 PM Estimated Blood Loss: Estimated blood loss: none.
[2019-05-28 14:13] VITALS: BP 120/76
== END 2019-05-28 14:25 | disposition home or self-care (01) ==
LOC: M OPP 12:06
PROVIDERS: ATTEND Internal Medicine Gastroenterology
DX: R19.7 Diarrhea, unspecified (principal); A04.71 Enterocolitis due to Clostridium difficile, recurrent; R12 Heartburn; F17.210 Nicotine dependence, cigarettes, uncomplicated; Z79.84 Long term (current) use of oral hypoglycemic drugs; Z79.899 Other long term (current) drug therapy; Z88.0 Allergy status to penicillin; Z88.5 Allergy status to narcotic agent; Z88.8 Allergy status to other drugs, medicaments and biological substances; Z91.040 Latex allergy status; Z91.048 Other nonmedicinal substance allergy status

== ENCOUNTER → 2019-09-04 | Outpatient (CLI) | payer MEDICARE, OTHER ==
[~2019-09-04] MED LIST changes: -FECAL MICROBIOTA PREPARATION 30 ML BTL (J3590) XX ONE; +FENO145T13 PO; -FENO145T7 PO; -NS 1,000 ML IV ONE; +TRAZ-163; +TRAZ-163 PO; -TRAZ-257; -TRAZ-257 PO
--- NOTE | 2019-09-04 14:25 | REP ---
RIGHT HIP, TWO VIEWS: Two views of the right hip performed. There is no acute fracture or dislocation. Moderate degenerative changes are seen at the hip joint with joint space narrowing, subchondral sclerosis and spurring. A couple of metallic clips are seen in the right pelvis. IMPRESSION: Moderate arthritic changes right hip. Electronically Signed by Kurtis Bolivar MD 09/04/2019 04:59 P
[2019-09-04 14:51] LABS: HEMOGLOBIN A1c 6.7 %
[2019-09-04 15:07] LABS: MALB URINE SIEMENS 78.1 MG/L
[2019-09-04 15:10] LABS: ALBUMIN 3.8 GM/DL (3.2-5.2); ALT/SGPT 24 U/L (12-78); BILIRUBIN,TOTAL 0.6 MG/DL (0.2-1.0); BLOOD UREA NITROGEN 7 MG/DL (7-18); CALCIUM LEVEL 9.9 MG/DL (8.5-10.1); CARBON DIOXIDE LEVEL 32 MEQ/L (21-32); CHLORIDE LEVEL 102 MEQ/L (98-107); CHOLESTEROL LEVEL 167 MG/DL (<200); CHOLESTEROL RISK RATIO 3.092 (<5); CREATININE FOR GFR 0.96 MG/DL (0.55-1.30); GLOMERULAR FILTRATION RATE > 60.0 (>51); GLUCOSE, FASTING 267 MG/DL (70-100); HDL CHOLESTEROL 54 MG/DL (>40); NON-HDL-C 113 MG/DL; POTASSIUM SERUM 4.7 MEQ/L (3.5-5.1); SODIUM LEVEL 141 MEQ/L (136-145); TOTAL PROTEIN 6.9 GM/DL (6.4-8.2); TRIGLYCERIDES LEVEL 431 MG/DL (<150)
== END ==
LOC: M LAB 13:34
PROVIDERS: ATTEND Family Medicine
DX: E11.9 Type 2 diabetes mellitus without complications (principal)

== ENCOUNTER → 2019-09-28 | Outpatient (REF) | payer MEDICARE, OTHER ==
[~2019-09-28] MED LIST changes: -FENO145T13 PO; +FENO145T7 PO; -TRAZ-163; -TRAZ-163 PO; +TRAZ-257; +TRAZ-257 PO
== END ==
LOC: M PLALAB 10:13
PROVIDERS: ATTEND Nurse Practitioner Family
DX: Z12.72 Encounter for screening for malignant neoplasm of vagina (principal); B97.7 Papillomavirus as the cause of diseases classified elsewhere
CPT/HCPCS: 87624; G0123; G0463

== ENCOUNTER → 2019-10-01 | Outpatient (REF) | payer MEDICARE, OTHER ==
[~2019-10-01] MED LIST changes: +FENO145T13 PO; -FENO145T7 PO; +TRAZ-163; +TRAZ-163 PO; -TRAZ-257; -TRAZ-257 PO
== END ==
LOC: M PLALAB 09:57
PROVIDERS: ATTEND Nurse Practitioner Family
DX: Z53.9 Procedure and treatment not carried out, unspecified reason (principal)

== ENCOUNTER → 2019-10-25 | Outpatient (REF) | payer MEDICARE, OTHER, MEDICAID ==
[~2019-10-25] MED LIST changes: -FENO145T13 PO; +FENO145T7 PO; -TRAZ-163; -TRAZ-163 PO; +TRAZ-257; +TRAZ-257 PO
== END ==
LOC: M LAB REF 16:34
PROVIDERS: ATTEND Physician Assistant
DX: J02.9 Acute pharyngitis, unspecified (principal)

== ENCOUNTER 2019-11-27 06:10 | Day surgery (SDC) | payer MEDICARE, BC ==
[~2019-11-27] VITALS: Ht 157.5 cm; Wt 77.6 kg
[~2019-11-27 06:10] MED LIST changes: +BREO1INH3 INH; +NS 1,000 ML IV ONE; +VANC125C3 PO
[2019-11-27] MEDS ORDERED: propofoL 500 MG/50 ML VIAL As Ordered ONE (07:39)
[2019-11-27] MEDS ORDERED: fentaNYL 100 MCG/2 ML INJECTION (J3010) As Ordered ONE (07:39)
[2019-11-27] MEDS ORDERED: LIDOCAINE 2% INJ 100 MG/5 ML SDV (FOR ANES.) As Ordered ONE (07:39)
[2019-11-27] MEDS ORDERED: ePHEDrine SULFATE 25 MG/5 ML(5MG/ML) SYRINGE As Ordered ONE (07:58)
--- NOTE | 2019-11-27 08:21 | ROOR ---
Patient Name: Jessi Zapata Procedure Date: 11/27/2019 7:29 AM Date of : 1960 Age: 59 Room: [facility] Gender: Female Note Status: Finalized Procedure: Colonoscopy Indications: Clostridium difficile diarrhea, Chronic diarrhea. (Failure to respond to C diff antibiotic therapy and 2 prior stool transplants-eval for underlying cause of diarrhea) Providers: Ferny JONES MD Referring MD: Shanta ESCOBAR NP, Monster DONOHUE MD. Requesting Provider: Medicines: Monitored Anesthesia Care Complications: No immediate complications. Procedure: Pre-Anesthesia Assessment: - The heart rate, respiratory rate, oxygen saturations, blood pressure, adequacy of pulmonary ventilation, and response to care were monitored throughout the procedure. The Colonoscope was introduced through the anus and advanced to 10 cm into the ileum. The colonoscopy was performed without difficulty. The patient tolerated the procedure well. The quality of the bowel preparation was good. Findings: The perianal and digital rectal examinations were normal. A 10 mm polyp was found in the distal rectum/anorectal junction. The polyp was semi-sessile. The polyp was removed with a cold snare. The polyp was removed with a piecemeal technique using a cold snare. Resection and retrieval were complete. To prevent bleeding after the polypectomy, three hemostatic clips were successfully placed. There was no bleeding at the end of the procedure. Two sessile polyps were found in the sigmoid colon. The polyps were 4 to 5 mm in size. These polyps were removed with a cold snare. Resection and retrieval were complete. The exam was otherwise normal throughout the examined colon. The terminal ileum appeared normal. Biopsies for histology were taken with a cold forceps for evaluation of microscopic colitis. Impression: - One 10 mm polyp in the distal rectum, removed with a cold snare and removed piecemeal using a cold snare. Resected and retrieved. Clips were placed. - Two 4 to 5 mm polyps in the sigmoid colon, removed with a cold snare. Resected and retrieved. - Mild diverticulosis in sigmoid colon. - The colon is otherwise normal. - The examined portion of the ileum was normal. - Biopsies were taken with a cold forceps for evaluation of microscopic colitis. Recommendation: - Continue present medications. - Telephone endoscopist for pathology results in 2 weeks. - Imodium 2 tablets PO BID. Ferny Jones MD Ferny JONES MD 11/27/2019 8:21:09 AM Electronically signed by Ferny JONES MD Number of Addenda: 0 Note Initiated On: 11/27/2019 7:29 AM Estimated Blood Loss: Estimated blood loss: none.
--- NOTE | 2019-11-27 08:24 | ROOR ---
Patient Name: Jessi Zapata Procedure Date: 11/27/2019 7:26 AM Date of : 1960 Age: 59 Room: [facility] Gender: Female Note Status: Finalized Procedure: Upper GI endoscopy Indications: Endoscopy to assess diarrhea in patient suspected of having disease of the small-bowel Providers: Ferny JONES MD Referring MD: Shanta ESCOBAR NP, Monster DONOHUE MD. Requesting Provider: Medicines: Monitored Anesthesia Care Complications: No immediate complications. Procedure: Pre-Anesthesia Assessment: - The heart rate, respiratory rate, oxygen saturations, blood pressure, adequacy of pulmonary ventilation, and response to care were monitored throughout the procedure. The Endoscope was introduced through the mouth, and advanced to the third part of duodenum. The upper GI endoscopy was accomplished without difficulty. The patient tolerated the procedure well. Findings: The esophagus was normal. The stomach was normal. The examined duodenum was normal. Biopsies for histology were taken with a cold forceps in the entire duodenum for evaluation of celiac disease. Impression: - Normal esophagus. - Normal stomach. - Normal examined duodenum. - Biopsies were taken with a cold forceps for evaluation of small bowel disease. Recommendation: - Telephone endoscopist for pathology results in 2 weeks. Ferny Jones MD Ferny JONES MD 11/27/2019 8:23:48 AM Electronically signed by Ferny JONES MD Number of Addenda: 0 Note Initiated On: 11/27/2019 7:26 AM Estimated Blood Loss: Estimated blood loss: none.
[2019-11-27 08:45] VITALS: BP 137/65
== END 2019-11-27 09:01 | disposition home or self-care (01) ==
LOC: M OPP 06:10
PROVIDERS: ATTEND Internal Medicine Gastroenterology
DX: K62.1 Rectal polyp (principal); K63.5 Polyp of colon; A04.72 Enterocolitis due to Clostridium difficile, not specified as recurrent; R19.7 Diarrhea, unspecified; E11.9 Type 2 diabetes mellitus without complications; G47.30 Sleep apnea, unspecified; F17.210 Nicotine dependence, cigarettes, uncomplicated; Z79.84 Long term (current) use of oral hypoglycemic drugs; Z79.899 Other long term (current) drug therapy; Z88.0 Allergy status to penicillin; Z88.1 Allergy status to other antibiotic agents; Z88.5 Allergy status to narcotic agent; Z88.8 Allergy status to other drugs, medicaments and biological substances
CPT/HCPCS: 43239; 45380; 45385; 88305; J3010

== ENCOUNTER 2019-11-30 12:12 | Outpatient (CLI) | payer MEDICARE, BC ==
[~2019-11-30] VITALS: Ht 157.5 cm; Wt 79.5 kg
[~2019-11-30 12:12] MED LIST changes: -NS 1,000 ML IV ONE
[2019-11-30 12:38] VITALS: BP 127/76
[2019-11-30] MEDS ORDERED: BEZLOTOXUMAB 850 MG in NS 100 ML IV ONE (13:00)
[2019-11-30 14:20] VITALS: BP 126/86
== END 2019-11-30 14:20 | disposition home or self-care (01) ==
LOC: M INFU 12:12
PROVIDERS: ATTEND Internal Medicine Infectious Disease
DX: A04.71 Enterocolitis due to Clostridium difficile, recurrent (principal); Z88.0 Allergy status to penicillin; Z88.5 Allergy status to narcotic agent; Z88.6 Allergy status to analgesic agent; Z88.8 Allergy status to other drugs, medicaments and biological substances; Z91.048 Other nonmedicinal substance allergy status
CPT/HCPCS: 96365; J0565

== ENCOUNTER → 2019-12-04 | Outpatient (CLI) | payer MEDICARE, BC ==
[2019-12-04 07:18] LABS: FREE T4 1.33 NG/DL (0.76-1.46); THYROID STIMULATING HORMONE 0.496 uIU/ML (0.358-3.740)
[2019-12-12 07:24] LABS: GASTRIN 18 pg/ml
[2019-12-12 10:07] LABS: FATS NEUTRAL Normal (.); FATS TOTAL Normal (.)
== END ==
LOC: M LAB 06:06
PROVIDERS: ATTEND Internal Medicine Gastroenterology
DX: R19.7 Diarrhea, unspecified (principal)

== ENCOUNTER → 2019-12-11 | Outpatient (REF) | payer MEDICARE, BC ==
[2019-12-11 13:45] LABS: BASO % 0.2 % (0.0-1.0); HEMATOCRIT 40.3 % (36.0-47.0); HEMOGLOBIN 12.8 g/dl (12.0-15.5); LYMPH # 2.8 10^3/uL (1.5-5.0); LYMPH % 22.3 % (24.0-44.0); MEAN CORPUSCULAR HEMOGLOBIN 29.6 pg (27.0-33.0); MEAN CORPUSCULAR HGB CONC 31.8 g/dl (32.0-36.5); MEAN CORPUSCULAR VOLUME 93.1 fl (80.0-96.0); MONO # 0.8 10^3/uL (0.0-0.8); MONO % 6.1 % (0.0-5.0); NEUTROPHILS # 8.9 10^3/uL (1.5-8.5); NEUTROPHILS % 69.9 % (36.0-66.0); PLATELET COUNT, AUTOMATED 335 10^3/uL (150-450); RED BLOOD COUNT 4.33 10^6/uL (4.00-5.40); WHITE BLOOD COUNT 12.7 10^3/uL (4.0-10.0)
[2019-12-11 13:51] LABS: ALT/SGPT 18 U/L (12-78); BILIRUBIN,TOTAL 0.4 MG/DL (0.2-1.0); BLOOD UREA NITROGEN 23 MG/DL (7-18); CALCIUM LEVEL 9.2 MG/DL (8.5-10.1); CARBON DIOXIDE LEVEL 32 MEQ/L (21-32); CHLORIDE LEVEL 106 MEQ/L (98-107); CHOLESTEROL LEVEL 148 MG/DL (<200); CHOLESTEROL RISK RATIO 2.312 (<5); CREATININE FOR GFR 0.87 MG/DL (0.55-1.30); GLOMERULAR FILTRATION RATE > 60.0 (>51); GLUCOSE, FASTING 101 MG/DL (70-100); HDL CHOLESTEROL 64 MG/DL (>40); LDL CHOLESTEROL 49 MG/DL (<100); NON-HDL-C 84 MG/DL; POTASSIUM SERUM 4.1 MEQ/L (3.5-5.1); SODIUM LEVEL 141 MEQ/L (136-145); TRIGLYCERIDES LEVEL 173 MG/DL (<150)
[2019-12-11 15:12] LABS: HEMOGLOBIN A1c 7.5 %
[2019-12-11 17:28] LABS: ALBUMIN 3.8 GM/DL (3.2-5.2); TOTAL PROTEIN 6.8 GM/DL (6.4-8.2)
== END ==
LOC: M LAB REF 12:08
PROVIDERS: ATTEND Nurse Practitioner Family
DX: M25.551 Pain in right hip (principal); E11.9 Type 2 diabetes mellitus without complications; E66.9 Obesity, unspecified; Z13.9 Encounter for screening, unspecified
CPT/HCPCS: 80053; 80061; 83036; 85025; G0463

== ENCOUNTER → 2020-01-15 | Outpatient (REF) | payer MEDICARE, BC ==
[~2020-01-15] MED LIST changes: -METF-791 PO; +METF-838 PO
[2020-01-15 12:53] LABS: CLOSTRIDIUM DIFFICILE PCR POSITIVE (NEGATIVE)
== END ==
LOC: M SFHCPLAZ 11:08
PROVIDERS: ATTEND Internal Medicine Infectious Disease
DX: A04.71 Enterocolitis due to Clostridium difficile, recurrent (principal)

== ENCOUNTER → 2020-01-16 | Outpatient (REF) | payer MEDICARE, BC ==
[~2020-01-16] MED LIST changes: +METF-791 PO; -METF-838 PO
[2020-01-16 09:32] LABS: HEMOGLOBIN A1c 7.5 %
[2020-01-16 09:48] LABS: ALBUMIN 3.8 GM/DL (3.2-5.2); ALT/SGPT 25 U/L (12-78); BILIRUBIN,TOTAL 0.7 MG/DL (0.2-1.0); BLOOD UREA NITROGEN 10 MG/DL (7-18); CALCIUM LEVEL 9.5 MG/DL (8.5-10.1); CARBON DIOXIDE LEVEL 30 MEQ/L (21-32); CHLORIDE LEVEL 105 MEQ/L (98-107); CREATININE FOR GFR 0.91 MG/DL (0.55-1.30); GLOMERULAR FILTRATION RATE > 60.0 (>51); GLUCOSE, FASTING 136 MG/DL (70-100); MAGNESIUM LEVEL 1.9 MG/DL (1.8-2.4); POTASSIUM SERUM 4.6 MEQ/L (3.5-5.1); SODIUM LEVEL 141 MEQ/L (136-145); TOTAL PROTEIN 6.9 GM/DL (6.4-8.2)
== END ==
LOC: M PLALAB 08:10
PROVIDERS: ATTEND Internal Medicine Infectious Disease
DX: E11.40 Type 2 diabetes mellitus with diabetic neuropathy, unspecified (principal); R25.2 Cramp and spasm; E55.9 Vitamin D deficiency, unspecified

== ENCOUNTER → 2020-01-16 | Outpatient (REF) | payer MEDICARE, BC ==
[~2020-01-16] MED LIST changes: -METF-791 PO; +METF-838 PO
== END ==
LOC: M SFHCPLAZ 13:18
PROVIDERS: ATTEND Internal Medicine Infectious Disease
DX: A04.71 Enterocolitis due to Clostridium difficile, recurrent (principal); E11.40 Type 2 diabetes mellitus with diabetic neuropathy, unspecified; R25.2 Cramp and spasm; E55.9 Vitamin D deficiency, unspecified

== ENCOUNTER → 2020-03-03 | Outpatient (CLI) | payer MEDICARE, BC ==
--- NOTE | 2020-03-03 10:58 | REP ---
REASON: Followup. COMPARISON: Multiple, the latest CT angio chest of 02/28/2019. The next latest is a low-dose screening CT of the lungs 11/24/2018. As per the protocol, only lung window images were sent to the read station for interpretation. The asymmetric nodule seen previously in the right upper lobe has increased in size today measuring approximately 1 cm in its greatest dimension, previously 4 mm. No additional abnormal nodules, masses, or opacities have developed. There are no pleural or pericardial effusions. Grossly, there is no mediastinal or hilar adenopathy or significant change in the appearance of the mediastinum or pulmonary kermit when compared to the prior exam. There is no significant change in the appearance of the upper abdomen or imaged osseus structures. IMPRESSION: Right upper lobe asymmetric nodule as described above. According to the revised Fleischner Society criteria, PET/CT is warranted. Electronically Signed by Wayne Bradley DO 03/03/2020 12:11 P
== END ==
LOC: M RAD 07:29
PROVIDERS: ATTEND Internal Medicine Pulmonary Disease
DX: Z12.2 Encounter for screening for malignant neoplasm of respiratory organs (principal); F17.218 Nicotine dependence, cigarettes, with other nicotine-induced disorders; R91.1 Solitary pulmonary nodule

== ENCOUNTER → 2020-03-24 | Outpatient (REF) | payer MEDICARE, BC ==
[2020-03-24 11:41] LABS: BASO % 0.4 % (0.0-1.0); EOS # 0.2 10^3/uL (0.0-0.5); EOS % 2.1 % (0.0-3.0); HEMATOCRIT 41.1 % (36.0-47.0); HEMOGLOBIN 13.5 g/dl (12.0-15.5); LYMPH # 3.1 10^3/uL (1.5-5.0); MEAN CORPUSCULAR HEMOGLOBIN 29.9 pg (27.0-33.0); MEAN CORPUSCULAR HGB CONC 32.8 g/dl (32.0-36.5); MEAN CORPUSCULAR VOLUME 91.1 fl (80.0-96.0); MONO # 0.5 10^3/uL (0.0-0.8); NEUTROPHILS # 3.5 10^3/uL (1.5-8.5); NEUTROPHILS % 47.4 % (36.0-66.0); PLATELET COUNT, AUTOMATED 282 10^3/uL (150-450); RED BLOOD COUNT 4.51 10^6/uL (4.00-5.40); WHITE BLOOD COUNT 7.3 10^3/uL (4.0-10.0)
[2020-03-24 11:52] LABS: ALBUMIN 3.8 GM/DL (3.2-5.2); BILIRUBIN,TOTAL 0.9 MG/DL (0.2-1.0); CALCIUM LEVEL 10.4 MG/DL (8.5-10.1); CHOLESTEROL RISK RATIO 3.875 (<5); CREATININE FOR GFR 1.02 MG/DL (0.55-1.30); GLOMERULAR FILTRATION RATE 59.5 (>51); POTASSIUM SERUM 4.1 MEQ/L (3.5-5.1); TOTAL PROTEIN 6.9 GM/DL (6.4-8.2)
[2020-03-24 11:55] LABS: TOTAL 25(OH) VITAMIN D 27.2 NG/ML (30.0-100.0)
[2020-03-24 12:15] LABS: HEMOGLOBIN A1c 8.1 %
== END ==
LOC: M LAB REF 11:18
PROVIDERS: ATTEND Nurse Practitioner Family
DX: E11.9 Type 2 diabetes mellitus without complications (principal); R19.7 Diarrhea, unspecified; J30.2 Other seasonal allergic rhinitis; F17.210 Nicotine dependence, cigarettes, uncomplicated; E55.9 Vitamin D deficiency, unspecified; I10 Essential (primary) hypertension; Z79.899 Other long term (current) drug therapy

== ENCOUNTER → 2020-04-15 | Outpatient (CLI) | payer MEDICARE, BC ==
--- NOTE | 2020-04-17 14:35 | REP ---
REASON FOR EXAM: Followup asymmetric nodules seen on prior low-dose screening CT examination of the chest of 03/03/2020 which was reviewed. There are no prior CT/PET examinations for comparison. After the intravenous administration of 9.20 millicuries of FDG-18, triplane whole body PET/CT was performed from the skull base to the thigh. There is no abnormal hypermetabolic activity seen on the neck, chest, abdomen, or pelvis. IMPRESSION: The mild asymmetric nodule seen in the right lung upper lobe is not hypermetabolic. In fact, there is no activity in that region whatsoever. Consider followup if clinically irrelevant. Electronically Signed by Wayne Bradley DO 04/17/2020 04:13 P
== END ==
LOC: M PLARAD 08:29
PROVIDERS: ATTEND Internal Medicine Pulmonary Disease
DX: R91.1 Solitary pulmonary nodule (principal)
CPT/HCPCS: 78815; A9552

== ENCOUNTER → 2020-04-21 | Outpatient (CLI) | payer MEDICARE, BC ==
--- NOTE | 2020-04-21 11:07 | REPMRS ---
Patient History The patient states she had a clinical breast exam in April 2020. Family history of prostate cancer at age 50 or over and colorectal cancer at age 50 or over in father, colorectal cancer in paternal aunt, colorectal cancer in paternal aunt. Taking estrogen for 2 years. Digital Woman Screen Mammo: April 21, 2020 - Exam #: [id number] Bilateral CC and MLO view(s) were taken. Technologist: Opal Miller, Technologist Prior study comparison: December 22, 2018, bilateral digital mammo screening bilat, performed at [facility]. August 16, 2017, digital woman screen mammo performed at [facility]. August 10, 2016, digital woman screen mammo performed at [facility]. FINDINGS: There are scattered fibroglandular densities. The Volpara volumetric breast density category is:B. There has been no change in the appearance of the mammogram from the prior studies. There is a mild amount of scattered fibroglandular density which is fairly symmetric. There is no interval development of dominant mass, architectural distortion, or grouped microcalcification suggestive of malignancy. 3-D tomosynthesis shows no additional findings. Assessment: BI-RADS/ACR category 1 mammogram. Negative Mammogram. Recommendation Routine screening mammogram of both breasts in 1 year (for women over age 40). This patient's Lifetime Breast Cancer Risk is estimated at 5.5 %. This mammogram was interpreted with the aid of an FDA-approved computer-aided dectection system. Electronically Signed By: Aly Saldana MD 04/21/20 [id number]
== END ==
LOC: M WHC 08:29
PROVIDERS: ATTEND Nurse Practitioner Family
DX: Z12.31 Encounter for screening mammogram for malignant neoplasm of breast (principal); Z80.0 Family history of malignant neoplasm of digestive organs; Z92.23 Personal history of estrogen therapy

== ENCOUNTER → 2020-04-21 | Outpatient (REF) | payer MEDICARE, BC | LOC: M SFHCWAGY 12:14 | PROVIDERS: ATTEND Nurse Practitioner Family | DX: Z12.72 Encounter for screening for malignant neoplasm of vagina (principal); R87.620 Atypical squamous cells of undetermined significance on cytologic smear of vagina (ASC-US); R87.810 Cervical high risk human papillomavirus (HPV) DNA test positive | CPT/HCPCS: 87624; G0123 ==

== ENCOUNTER → 2020-06-16 | Outpatient (REF) | payer MEDICARE, BC ==
[2020-06-16 13:07] LABS: BASO % 0.3 % (0.0-1.0); EOS # 0.2 10^3/uL (0.0-0.5); EOS % 1.9 % (0.0-3.0); HEMATOCRIT 43.9 % (36.0-47.0); HEMOGLOBIN 14.2 g/dl (12.0-15.5); LYMPH # 3.6 10^3/uL (1.5-5.0); LYMPH % 37.7 % (24.0-44.0); MEAN CORPUSCULAR HEMOGLOBIN 30.4 pg (27.0-33.0); MEAN CORPUSCULAR HGB CONC 32.3 g/dl (32.0-36.5); MONO # 0.6 10^3/uL (0.0-0.8); MONO % 6.4 % (0.0-5.0); NEUTROPHILS # 5.1 10^3/uL (1.5-8.5); NEUTROPHILS % 53.5 % (36.0-66.0); PLATELET COUNT, AUTOMATED 282 10^3/uL (150-450); RED BLOOD COUNT 4.67 10^6/uL (4.00-5.40); WHITE BLOOD COUNT 9.5 10^3/uL (4.0-10.0)
[2020-06-16 13:19] LABS: ALBUMIN 3.8 GM/DL (3.2-5.2); ALT/SGPT 21 U/L (12-78); BILIRUBIN,TOTAL 0.6 MG/DL (0.2-1.0); BLOOD UREA NITROGEN 16 MG/DL (7-18); CALCIUM LEVEL 9.5 MG/DL (8.5-10.1); CARBON DIOXIDE LEVEL 31 MEQ/L (21-32); CHLORIDE LEVEL 106 MEQ/L (98-107); CHOLESTEROL LEVEL 138 MG/DL (<200); CREATININE FOR GFR 0.97 MG/DL (0.55-1.30); GLOMERULAR FILTRATION RATE > 60.0 (>51); GLUCOSE, FASTING 88 MG/DL (70-100); HDL CHOLESTEROL 46 MG/DL (>40); LDL CHOLESTEROL 37 MG/DL (<100); NON-HDL-C 92 MG/DL; POTASSIUM SERUM 4.7 MEQ/L (3.5-5.1); SODIUM LEVEL 142 MEQ/L (136-145); TRIGLYCERIDES LEVEL 277 MG/DL (<150)
[2020-06-16 13:25] LABS: TOTAL 25(OH) VITAMIN D 26.2 NG/ML (30.0-100.0); VITAMIN B12 LEVEL 388 PG/ML (247-911)
== END ==
LOC: M LAB REF 11:41
PROVIDERS: ATTEND Nurse Practitioner Family
DX: R26.81 Unsteadiness on feet (principal); M25.551 Pain in right hip; E11.9 Type 2 diabetes mellitus without complications; E66.09 Other obesity due to excess calories

== ENCOUNTER → 2021-01-09 | Outpatient (REF) | payer MEDICARE, BC ==
[~2021-01-09] MED LIST changes: +FOLI0.8T3 PO; -FOLI800T PO
[2021-01-09 11:49] LABS: BASO # 0.1 10^3/uL (0.0-0.2); BASO % 0.6 % (0.0-1.0); EOS # 0.3 10^3/uL (0.0-0.5); EOS % 2.8 % (0.0-3.0); HEMATOCRIT 45.6 % (36.0-47.0); HEMOGLOBIN 14.6 g/dl (12.0-15.5); LYMPH # 3.3 10^3/uL (1.5-5.0); LYMPH % 35.2 % (24.0-44.0); MEAN CORPUSCULAR HEMOGLOBIN 29.4 pg (27.0-33.0); MEAN CORPUSCULAR VOLUME 91.9 fl (80.0-96.0); MONO # 0.6 10^3/uL (0.0-0.8); MONO % 6.1 % (2.0-8.0); NEUTROPHILS # 5.1 10^3/uL (1.5-8.5); PLATELET COUNT, AUTOMATED 318 10^3/uL (150-450); RED BLOOD COUNT 4.96 10^6/uL (4.00-5.40); WHITE BLOOD COUNT 9.2 10^3/uL (4.0-10.0)
[2021-01-09 12:10] LABS: HEMOGLOBIN A1c 6.3 %
[2021-01-09 12:27] LABS: ALBUMIN 4.2 GM/DL (3.2-5.2); ALT/SGPT 17 U/L (12-78); BLOOD UREA NITROGEN 8 MG/DL (7-18); CALCIUM LEVEL 9.7 MG/DL (8.5-10.1); CARBON DIOXIDE LEVEL 30 MEQ/L (21-32); CHLORIDE LEVEL 103 MEQ/L (98-107); CHOLESTEROL LEVEL 168 MG/DL (<200); CHOLESTEROL RISK RATIO 3.054 (<5); CREATININE FOR GFR 0.97 MG/DL (0.55-1.30); GLOMERULAR FILTRATION RATE > 60.0 (>51); GLUCOSE, FASTING 67 MG/DL (70-100); HDL CHOLESTEROL 55 MG/DL (>40); LDL CHOLESTEROL 53 MG/DL (<100); NON-HDL-C 113 MG/DL; POTASSIUM SERUM 4.3 MEQ/L (3.5-5.1); SODIUM LEVEL 140 MEQ/L (136-145); TOTAL PROTEIN 7.6 GM/DL (6.4-8.2); TRIGLYCERIDES LEVEL 301 MG/DL (<150)
== END ==
LOC: M LAB REF 11:16
PROVIDERS: ATTEND Nurse Practitioner Family
DX: E11.9 Type 2 diabetes mellitus without complications (principal)

== ENCOUNTER → 2021-02-23 | Outpatient (CLI) | payer BC ==
--- NOTE | 2021-02-23 14:39 | REPVR ---
PROCEDURE INFORMATION: Exam: CT Chest Without Contrast; Diagnostic Exam date and time: 02/23/2021 2:00 PM Age: 60 years old Clinical indication: Abnormal findings; Other: Pulm nodule; Additional info: Solitary pulmonary nodule TECHNIQUE: Imaging protocol: Diagnostic computed tomography of the chest without contrast. 3D rendering (Not supervised by radiologist): MIP and/or 3D reconstructed images were created by the technologist. Radiation optimization: All CT scans at this facility use at least one of these dose optimization techniques: automated exposure control; mA and/or kV adjustment per patient size (includes targeted exams where dose is matched to clinical indication); or iterative reconstruction. COMPARISON: PT PET/CT Skull/mid thigh 04/15/2020 9:46 AM FINDINGS: Tubes, catheters and devices: Neuromuscular stimulation device. Lungs: Hyperinflation and interstitial prominence. 2 mm punctate nodular density with adjacent parenchymal stranding in the right upper lobe, which is stable when correlating with chest CT dated 02/28/19. Given 2 years of interval stability, no follow-up imaging is required. Pleural spaces: No pleural effusion. Heart: Coronary artery calcification. 10 mm pericardial effusion. Aorta: Calcification of the normal caliber thoracic aorta. Lymph nodes: Subcentimeter lymph nodes. Upper abdomen: Hepatic and splenic granulomata. Status post cholecystectomy. Nonobstructing 4 mm left renal calculus. Questionable wall thickening in the nondistended stomach. Bones/joints: Degenerative change. IMPRESSION: 1. Hyperinflation and interstitial prominence. 2. Stable 2 mm punctate nodular density with adjacent parenchymal stranding in the right upper lobe. 3. Additional findings as described above. Electronically signed by: Stephon Muñiz On 02/23/2021 14:39:24 PM
== END ==
LOC: M RAD 13:36
PROVIDERS: ATTEND Internal Medicine Pulmonary Disease
DX: R91.1 Solitary pulmonary nodule (principal)

== ENCOUNTER → 2021-03-10 | Outpatient (REF) | payer BC | LOC: M LAB REF 17:20 | PROVIDERS: ATTEND Internal Medicine Pulmonary Disease | DX: J44.1 Chronic obstructive pulmonary disease with (acute) exacerbation (principal) ==

== ENCOUNTER → 2022-06-24 | Outpatient (CLI) | payer BC, MEDICARE ==
[~2022-06-24] MED LIST changes: -CITA10TA5; +CITA10TA7; -CYMB60CA3 PO; +CYMB60CA4 PO; -DOXY100C; +DOXY100C3; -FLUC150T PO; +FLUC150T9 PO; +OMEP40CA4 PO; -OMEP40CA97 PO
== END ==
LOC: M RAD 09:34
PROVIDERS: ATTEND Nurse Practitioner Family
DX: Z12.2 Encounter for screening for malignant neoplasm of respiratory organs (principal); Z87.891 Personal history of nicotine dependence; J98.4 Other disorders of lung

== ENCOUNTER → 2022-07-29 | Outpatient (REF) | payer MEDICARE ==
[2022-07-29 18:27] LABS: ALBUMIN 3.9 GM/DL (3.2-5.2); ALT/SGPT 19 U/L (12-78); BILIRUBIN,TOTAL 0.6 MG/DL (0.2-1.0); BLOOD UREA NITROGEN 9 MG/DL (7-18); CALCIUM LEVEL 9.5 MG/DL (8.5-10.1); CARBON DIOXIDE LEVEL 30 MEQ/L (21-32); CHLORIDE LEVEL 103 MEQ/L (98-107); CHOLESTEROL LEVEL 169 MG/DL (<200); CHOLESTEROL RISK RATIO 3.129 (<5); CREATININE FOR GFR 0.78 MG/DL (0.55-1.30); GLOMERULAR FILTRATION RATE > 60.0 (>51); GLUCOSE, FASTING 103 MG/DL (70-100); HDL CHOLESTEROL 54 MG/DL (>40); LDL CHOLESTEROL 50 MG/DL (<100); NON-HDL-C 115 MG/DL; POTASSIUM SERUM 4.3 MEQ/L (3.5-5.1); SODIUM LEVEL 138 MEQ/L (136-145); TOTAL 25(OH) VITAMIN D 12.6 NG/ML (30.0-100.0); TOTAL PROTEIN 7.4 GM/DL (6.4-8.2); TRIGLYCERIDES LEVEL 327 MG/DL (<150)
[2022-07-29 18:51] LABS: HIV 1&2 SCREEN CENTAUR NEGATIVE (NEGATIVE)
== END ==
LOC: M LAB REF 15:59
PROVIDERS: ATTEND Nurse Practitioner Family
DX: Z11.3 Encounter for screening for infections with a predominantly sexual mode of transmission (principal); A64 Unspecified sexually transmitted disease; E11.9 Type 2 diabetes mellitus without complications

== ENCOUNTER → 2022-07-29 | Outpatient (REF) | payer MEDICARE ==
[2022-07-29 20:42] LABS: MALB URINE SIEMENS 36.2 MG/L; MAU/CREAT RATIO 19.1 MCG/MG (0.0-30.0)
== END ==
LOC: M LAB REF 16:43
PROVIDERS: ATTEND Nurse Practitioner Family
DX: E11.9 Type 2 diabetes mellitus without complications (principal)

== ENCOUNTER → 2022-11-01 | Outpatient (REF) | payer MEDICARE, OTHER ==
[~2022-11-01] MED LIST changes: +ALBU8.5H INH; +AZIT-12 PO; +GLIP10TA6 PO; +GUAI20TA PO; +IPRA0.00 INH; +PROA1AER2 INH
[2022-11-01 17:41] LABS: ALBUMIN 3.6 G/DL (3.2-5.2); ALKALINE PHOSPHATASE 107 U/L (46-116); ALT/SGPT 15 U/L (7.0-40); AST/SGOT 19 U/L (<34); BILIRUBIN,TOTAL 0.4 MG/DL (0.3-1.2); BLOOD UREA NITROGEN 6 MG/DL (9-23); CALCIUM LEVEL 9.6 MG/DL (8.3-10.6); CARBON DIOXIDE LEVEL 34 MMOL/L (20-31); CHLORIDE LEVEL 100 MMOL/L (98-107); CREATININE FOR GFR 0.83 MG/DL (0.55-1.30); GLOMERULAR FILTRATION RATE > 60.0 (>45); GLUCOSE, FASTING 156 MG/DL (74-106); POTASSIUM SERUM 4.4 MMOL/L (3.5-5.1); SODIUM LEVEL 138 MMOL/L (136-145)
== END ==
LOC: M LAB REF 16:08
PROVIDERS: ATTEND Nurse Practitioner Family
DX: E11.9 Type 2 diabetes mellitus without complications (principal)

== ENCOUNTER → 2023-01-14 | Outpatient (REF) | payer OTHER | LOC: M LAB REF 16:34 | PROVIDERS: ATTEND Pediatrics | DX: R05.9 Cough, unspecified (principal) ==

== ENCOUNTER → 2023-03-18 | Outpatient (REF) | payer OTHER ==
[2023-03-18 12:06] LABS: APPEARANCE, URINE CLOUDY (CLEAR); BACTERIA, URINE AUTO 1+ (NEGATIVE); BILIRUBIN, URINE AUTO NEGATIVE (NEGATIVE); BLOOD, URINE BLOOD 2+ (NEGATIVE); COLOR, URINE AMBER (YELLOW); GLUCOSE, URINE (UA) AUTO NEGATIVE (NEGATIVE); KETONE, URINE AUTO NEGATIVE (NEGATIVE); LEUKOCYTE ESTERASE, URINE AUTO 2+ (NEGATIVE); MUCUS, URINE SMALL (NEGATIVE); NITRITE, URINE AUTO POSITIVE (NEGATIVE); PROTEIN, URINE AUTO 2+ mg/dL (NEGATIVE); RBC, URINE AUTO 47 /HPF (0-3); SPECIFIC GRAVITY URINE AUTO 1.015 (1.002-1.035); SQUAMOUS EPITHELIAL CELL UR AU 3 /HPF (0-6); WBC, URINE AUTO TNTC /HPF (0-3)
== END ==
LOC: M LAB REF 11:27
PROVIDERS: ATTEND Nurse Practitioner Family
DX: R30.0 Dysuria (principal)

== ENCOUNTER → 2023-05-17 | Outpatient (REF) | payer OTHER, MEDICARE ==
[2023-05-18 13:16] LABS: CREATININE, URINE 276.6 MG/DL; MAU/CREAT RATIO 13.7 MCG/MG (0.0-30.0)
== END ==
LOC: M LAB REF 11:51
PROVIDERS: ATTEND Nurse Practitioner Family
DX: E11.9 Type 2 diabetes mellitus without complications (principal)

== ENCOUNTER → 2023-07-27 | Outpatient (REF) | payer OTHER, MEDICARE ==
[~2023-07-27] MED LIST changes: +GLIP5TAB17 PO; -GLIP5TAB8 PO
[2023-07-27 13:21] LABS: ALBUMIN 3.8 G/DL (3.2-5.2); ALKALINE PHOSPHATASE 66 U/L (46-116); ALT/SGPT < 9 U/L (7.0-40); AST/SGOT 11 U/L (<34); BILIRUBIN,TOTAL 0.7 MG/DL (0.3-1.2); BLOOD UREA NITROGEN 11 MG/DL (9-23); CALCIUM LEVEL 9.9 MG/DL (8.3-10.6); CARBON DIOXIDE LEVEL 32 MMOL/L (20-31); CHLORIDE LEVEL 104 MMOL/L (98-107); CHOLESTEROL LEVEL 140 MG/DL (<200); CREATININE FOR GFR 0.85 MG/DL (0.55-1.30); GLOMERULAR FILTRATION RATE > 60.0 (>45); GLUCOSE, FASTING 67 MG/DL (74-106); HDL CHOLESTEROL 49.9 MG/DL (>40); LDL CHOLESTEROL 66.3 MG/DL (<100); NON-HDL-C 90.1 MG/DL; POTASSIUM SERUM 4.6 MMOL/L (3.5-5.1); SODIUM LEVEL 142 MMOL/L (136-145); THYROID STIMULATING HORMONE 0.559 uIU/ML (0.55-4.78); TOTAL PROTEIN 6.6 G/DL (5.7-8.2); TRIGLYCERIDES LEVEL 119 MG/DL (<150)
== END ==
LOC: M LAB REF 12:52
PROVIDERS: ATTEND Nurse Practitioner Family
DX: E11.9 Type 2 diabetes mellitus without complications (principal)

== ENCOUNTER → 2023-09-20 | Outpatient (REF) | payer OTHER, MEDICAID ==
[~2023-09-20] MED LIST changes: +APPLTAB2 PO; +OMEP-173 PO
== END ==
LOC: M LAB REF 11:46
PROVIDERS: ATTEND Nurse Practitioner Family
DX: E11.9 Type 2 diabetes mellitus without complications (principal)

== ENCOUNTER 2023-10-04 21:54 | Inpatient (IN) | payer OTHER, MEDICAID ==
[~2023-10-04] VITALS: Ht 157.5 cm; Wt 70.3 kg
[2023-10-04] MEDS ORDERED: ALBUTEROL SULFATE 2.5MG/0.5ML INH NEB SOLN NEB ONE (22:35)
[2023-10-04] MEDS ORDERED: IPRATROPIUM 0.5MG/ALBUTEROL 2.5MG INH SOL UD 3ML (DUONEB) NEB ONE (22:35)
[2023-10-04] MEDS ORDERED: methylPREDNISolone 125MG 2ML VIAL IV ONE (22:35)
[2023-10-04 22:39] LABS: BASO # 0.1 10^3/uL (0.0-0.2); BASO % 0.4 % (0.0-1.0); EOS % 0.1 % (0.0-3.0); HEMOGLOBIN 14.6 g/dl (12.0-15.5); LYMPH # 1.8 10^3/uL (1.5-5.0); LYMPH % 7.2 % (24.0-44.0); MEAN CORPUSCULAR HEMOGLOBIN 30.3 pg (27.0-33.0); MEAN CORPUSCULAR HGB CONC 33.2 g/dl (32.0-36.5); MEAN CORPUSCULAR VOLUME 91.3 fl (80.0-96.0); MONO # 1.5 10^3/uL (0.0-0.8); MONO % 6.2 % (2.0-8.0); NEUTROPHILS # 20.7 10^3/uL (1.5-8.5); NEUTROPHILS % 84.1 % (36.0-66.0); PLATELET COUNT, AUTOMATED 476 10^3/uL (150-450); RED BLOOD COUNT 4.82 10^6/uL (4.00-5.40); WHITE BLOOD COUNT 24.7 10^3/uL (4.0-10.0)
[2023-10-04 23:02] LABS: CK-MB VALUE MASS < 1.0 NG/ML (<3.6)
[2023-10-04 23:05] LABS: ALBUMIN 2.5 G/DL (3.2-5.2); ALKALINE PHOSPHATASE 155 U/L (46-116); ALT/SGPT 38 U/L (7.0-40); AST/SGOT 68 U/L (<34); BILIRUBIN,DIRECT 1.5 MG/DL (<0.4); BILIRUBIN,TOTAL 2.3 MG/DL (0.3-1.2); BLOOD UREA NITROGEN 24 MG/DL (9-23); CALCIUM LEVEL 9.8 MG/DL (8.3-10.6); CARBON DIOXIDE LEVEL 28 MMOL/L (20-31); CHLORIDE LEVEL 93 MMOL/L (98-107); CREATININE FOR GFR 0.77 MG/DL (0.55-1.30); GLOMERULAR FILTRATION RATE > 60.0 (>45); GLUCOSE, FASTING 223 MG/DL (74-106); POTASSIUM SERUM 4.2 MMOL/L (3.5-5.1); SODIUM LEVEL 133 MMOL/L (136-145); TOTAL PROTEIN 6.8 G/DL (5.7-8.2)
[2023-10-04 23:13] LABS: CPK CREATINE PHOSPHOKINASE 165 U/L (34-145)
[2023-10-04 23:24] LABS: ABG BASE EXCESS 1.2 (-2.0-2.0); ABG HCO3 25.9 MMOL/L (22.0-26.0); ABG O2 SATURATION 94.7 % (95.0-99.0); ABG PARTIAL PRESSURE CO2 41.3 mmHg (35.0-45.0); ABG PARTIAL PRESSURE O2 73.8 mmHg (75.0-100.0); ABG STANDARD HCO3 25.5 MMOL/L. (22.0-26.0); ABG TOTAL CO2 27.2 MMOL/L (23.0-31.0); ABG pH (ARTERIAL) 7.415 UNITS (7.350-7.450)
[2023-10-04] MEDS ORDERED: LevoFLOXacin IV 750 MG in IV 1 EA IV ONE (23:45)
[2023-10-04 23:47] LABS: PROCALCITONIN 0.59 ng/ml
[2023-10-05 00:40] LABS: CK-MB VALUE MASS < 1.0 NG/ML (<3.6)
[2023-10-05 01:00] LABS: CPK CREATINE PHOSPHOKINASE 131 U/L (34-145); MB/CK RELATIVE INDEX 0.76 (< OR =4)
[2023-10-05] MEDS ORDERED: APPLCAP PO (01:10)
[2023-10-05] MEDS ORDERED: ALBU8.5H INH (01:10)
[2023-10-05] MEDS ORDERED: METF-723 PO (01:10)
[2023-10-05] MEDS ORDERED: ALBU2.5V10 INH (01:10)
[2023-10-05] MEDS ORDERED: ERGO500029 PO (01:10)
[2023-10-05] MEDS ORDERED: HOME MED LIST COMPLETE! XX SCH (01:15)
[2023-10-05] MEDS ORDERED: GLUCOSE 4GM CHEW TABLET PO PRN (01:35)
[2023-10-05] MEDS ORDERED: GLUCAGON INJ 1MG VIAL SC PRN (01:35)
[2023-10-05] MEDS ORDERED: DEXTROSE 50% 50ML SYRINGE IV PRN (01:35)
[2023-10-05] MEDS: IPRATROPIUM 0.5MG/ALBUTEROL 2.5MG INH SOL UD 3ML (DUONEB) NEB SCH ×4 (03:11→19:43)
[2023-10-05 03:32] LABS: PROCALCITONIN 0.56 ng/ml
[2023-10-05 07:12] LABS: HEMATOCRIT 39.3 % (36.0-47.0); HEMOGLOBIN 13.1 g/dl (12.0-15.5); MEAN CORPUSCULAR HEMOGLOBIN 30.5 pg (27.0-33.0); MEAN CORPUSCULAR HGB CONC 33.3 g/dl (32.0-36.5); MEAN CORPUSCULAR VOLUME 91.6 fl (80.0-96.0); PLATELET COUNT, AUTOMATED 402 10^3/uL (150-450); RED BLOOD COUNT 4.29 10^6/uL (4.00-5.40); WHITE BLOOD COUNT 18.4 10^3/uL (4.0-10.0)
[2023-10-05 07:39] LABS: ALBUMIN 2.2 G/DL (3.2-5.2); ALKALINE PHOSPHATASE 137 U/L (46-116); ALT/SGPT 38 U/L (7.0-40); AST/SGOT 67 U/L (<34); BILIRUBIN,TOTAL 1.7 MG/DL (0.3-1.2); BLOOD UREA NITROGEN 29 MG/DL (9-23); CALCIUM LEVEL 9.3 MG/DL (8.3-10.6); CARBON DIOXIDE LEVEL 27 MMOL/L (20-31); CHLORIDE LEVEL 93 MMOL/L (98-107); CREATININE FOR GFR 0.72 MG/DL (0.55-1.30); GLOMERULAR FILTRATION RATE > 60.0 (>45); GLUCOSE, FASTING 343 MG/DL (74-106); POTASSIUM SERUM 4.3 MMOL/L (3.5-5.1); SODIUM LEVEL 129 MMOL/L (136-145); TOTAL PROTEIN 6.1 G/DL (5.7-8.2)
[2023-10-05] MEDS: INSULIN LISPRO (NovoLOG) PER UNIT SC SCH ×4 (07:46→20:40)
[2023-10-05] MEDS: SYMBICORT 160/4.5MCG INHALER 6GM INH SCH ×2 (07:53→19:42)
[2023-10-05] MEDS: OMEPRAZOLE 20MG CAP PO SCH (08:36)
[2023-10-05] MEDS: predniSONE 20 MG TAB PO SCH (08:36)
[2023-10-05] MEDS: ENOXAPARIN 40MG/0.4ML SYRINGE (J1650 PER 10MG) SC SCH (08:38)
[2023-10-05 10:22] VITALS: BP 120/59; TEMP 97.5; O2SAT 88
[2023-10-05 11:11] VITALS: BP 119/58; O2SAT 90
[2023-10-05 12:00] VITALS: O2SAT 92
[2023-10-05] MEDS: NS 1,000 ML IV SCH ×2 (13:00→21:40)
[2023-10-05 15:56] VITALS: BP 100/52; TEMP 98.2; O2SAT 95
[2023-10-05 16:00] VITALS: O2SAT 89
[2023-10-05 20:00] VITALS: BP 100/55; TEMP 96.5; O2SAT 95
[2023-10-05] MEDS: ATORVASTATIN 20 MG TAB PO SCH (20:31)
[2023-10-05] MEDS: CETIRIZINE (ZyrTEC) 10 MG TAB PO SCH (20:31)
[2023-10-05] MEDS ORDERED: LEVEMIR (INSULIN DETEMIR) 1 UNITS/0.01ML SC SCH (21:00)
[2023-10-06] VITALS (17 sets, daily range): BP systolic 87–113; BP diastolic 48–57; TEMP 96.3–98.7; O2SAT 86–98
[2023-10-06] MEDS: NS 1,000 ML IV SCH (00:48)
[2023-10-06] MEDS: IPRATROPIUM 0.5MG/ALBUTEROL 2.5MG INH SOL UD 3ML (DUONEB) NEB SCH ×4 (01:07→19:16)
[2023-10-06 04:56] LABS: HEMATOCRIT 35.4 % (36.0-47.0); HEMOGLOBIN 11.8 g/dl (12.0-15.5); MEAN CORPUSCULAR HEMOGLOBIN 30.3 pg (27.0-33.0); MEAN CORPUSCULAR HGB CONC 33.3 g/dl (32.0-36.5); MEAN CORPUSCULAR VOLUME 90.8 fl (80.0-96.0); PLATELET COUNT, AUTOMATED 392 10^3/uL (150-450); WHITE BLOOD COUNT 21.4 10^3/uL (4.0-10.0)
[2023-10-06 05:21] LABS: ALKALINE PHOSPHATASE 108 U/L (46-116); ALT/SGPT 27 U/L (7.0-40); AST/SGOT 30 U/L (<34); BILIRUBIN,TOTAL 0.8 MG/DL (0.3-1.2); BLOOD UREA NITROGEN 32 MG/DL (9-23); CARBON DIOXIDE LEVEL 30 MMOL/L (20-31); CHLORIDE LEVEL 98 MMOL/L (98-107); CREATININE FOR GFR 0.83 MG/DL (0.55-1.30); GLOMERULAR FILTRATION RATE > 60.0 (>45); GLUCOSE, FASTING 314 MG/DL (74-106); POTASSIUM SERUM 4.1 MMOL/L (3.5-5.1); SODIUM LEVEL 134 MMOL/L (136-145); TOTAL PROTEIN 5.4 G/DL (5.7-8.2)
[2023-10-06] MEDS: LevoFLOXacin 750 MG TABLET PO SCH (06:13)
[2023-10-06] MEDS: SYMBICORT 160/4.5MCG INHALER 6GM INH SCH ×2 (07:44→19:16)
[2023-10-06 07:50] LABS: PROCALCITONIN 0.38 ng/ml
[2023-10-06] MEDS: INSULIN LISPRO (NovoLOG) PER UNIT SC SCH ×4 (08:11→20:00)
[2023-10-06] MEDS: ENOXAPARIN 40MG/0.4ML SYRINGE (J1650 PER 10MG) SC SCH (08:11)
[2023-10-06] MEDS: predniSONE 20 MG TAB PO SCH (08:11)
[2023-10-06] MEDS: OMEPRAZOLE 20MG CAP PO SCH (08:11)
[2023-10-06] MEDS ORDERED: LEVEMIR (INSULIN DETEMIR) 1 UNITS/0.01ML SC SCH (09:00)
[2023-10-06 09:04] LABS: HEMOGLOBIN A1c 6.6 % (4.0-6.0)
[2023-10-06] MEDS ORDERED: NS 500 ML IV ONE (11:00)
[2023-10-06] MEDS: ATORVASTATIN 20 MG TAB PO SCH (20:03)
[2023-10-06] MEDS: LEVEMIR (INSULIN DETEMIR) 1 UNITS/0.01ML SC SCH (20:03)
[2023-10-06] MEDS: CETIRIZINE (ZyrTEC) 10 MG TAB PO SCH (20:04)
[2023-10-07] VITALS: BP 105/53; TEMP 97; O2SAT 94
[2023-10-07] MEDS: IPRATROPIUM 0.5MG/ALBUTEROL 2.5MG INH SOL UD 3ML (DUONEB) NEB SCH ×3 (02:00→13:36)
[2023-10-07 04:00] VITALS: BP 106/55; TEMP 97.2; O2SAT 97
[2023-10-07 04:15] LABS: BASO # 0.1 10^3/uL (0.0-0.2); BASO % 0.3 % (0.0-1.0); EOS % 0.1 % (0.0-3.0); HEMATOCRIT 35.3 % (36.0-47.0); HEMOGLOBIN 11.5 g/dl (12.0-15.5); LYMPH % 11.7 % (24.0-44.0); MEAN CORPUSCULAR HEMOGLOBIN 30.1 pg (27.0-33.0); MEAN CORPUSCULAR HGB CONC 32.6 g/dl (32.0-36.5); MEAN CORPUSCULAR VOLUME 92.4 fl (80.0-96.0); MONO # 0.7 10^3/uL (0.0-0.8); MONO % 4.2 % (2.0-8.0); NEUTROPHILS # 13.8 10^3/uL (1.5-8.5); NEUTROPHILS % 79.1 % (36.0-66.0); PLATELET COUNT, AUTOMATED 411 10^3/uL (150-450); RED BLOOD COUNT 3.82 10^6/uL (4.00-5.40); WHITE BLOOD COUNT 17.4 10^3/uL (4.0-10.0)
[2023-10-07 04:39] LABS: BLOOD UREA NITROGEN 31 MG/DL (9-23); CALCIUM LEVEL 8.8 MG/DL (8.3-10.6); CARBON DIOXIDE LEVEL 29 MMOL/L (20-31); CHLORIDE LEVEL 103 MMOL/L (98-107); CREATININE FOR GFR 0.72 MG/DL (0.55-1.30); GLOMERULAR FILTRATION RATE > 60.0 (>45); GLUCOSE, FASTING 244 MG/DL (74-106); POTASSIUM SERUM 4.1 MMOL/L (3.5-5.1); SODIUM LEVEL 138 MMOL/L (136-145)
[2023-10-07] MEDS: LevoFLOXacin 750 MG TABLET PO SCH (05:57)
[2023-10-07 07:53] VITALS: BP 118/57; TEMP 98; O2SAT 94
[2023-10-07 08:00] VITALS: O2SAT 95
[2023-10-07] MEDS: SYMBICORT 160/4.5MCG INHALER 6GM INH SCH (08:19)
[2023-10-07] MEDS: ENOXAPARIN 40MG/0.4ML SYRINGE (J1650 PER 10MG) SC SCH (08:29)
[2023-10-07] MEDS: INSULIN LISPRO (NovoLOG) PER UNIT SC SCH ×2 (08:29→12:00)
[2023-10-07] MEDS: predniSONE 20 MG TAB PO SCH (08:30)
[2023-10-07] MEDS: LEVEMIR (INSULIN DETEMIR) 1 UNITS/0.01ML SC SCH (08:30)
[2023-10-07] MEDS: OMEPRAZOLE 20MG CAP PO SCH (08:30)
[2023-10-07] MEDS ORDERED: STIO1AER IN (10:56)
[2023-10-07] MEDS ORDERED: LEVO1TAB40 PO ×2 (11:38→12:15)
[2023-10-07] MEDS ORDERED: LANTINJ4 SC ×2 (11:38→12:15)
[2023-10-07] MEDS ORDERED: PRED20TA PO ×3 (11:38→12:15)
[2023-10-07] MEDS ORDERED: GLOB31MI SC ×2 (11:41→12:15)
[2023-10-07] MEDS ORDERED: IPRA0.00 INH (11:41)
[2023-10-07 11:59] VITALS: BP 99/53; TEMP 98.6; O2SAT 94
== END 2023-10-07 13:50 | disposition home or self-care (01) | DRG 193 ==
LOC: M ED 21:54 → M ED INP 10-05 → ENRESERV 10-05 09:37 → M ICU 10-05 10:16
PROVIDERS: ADMIT Family Medicine; ATTEND Internal Medicine
DX: J18.9 Pneumonia, unspecified organism (principal); J96.01 Acute respiratory failure with hypoxia; J44.1 Chronic obstructive pulmonary disease with (acute) exacerbation; J44.0 Chronic obstructive pulmonary disease with (acute) lower respiratory infection; E87.20 Acidosis, unspecified; E11.9 Type 2 diabetes mellitus without complications; K21.9 Gastro-esophageal reflux disease without esophagitis; Z90.49 Acquired absence of other specified parts of digestive tract; F17.210 Nicotine dependence, cigarettes, uncomplicated; I95.9 Hypotension, unspecified; E78.5 Hyperlipidemia, unspecified; J30.2 Other seasonal allergic rhinitis; Z66 Do not resuscitate; Z79.84 Long term (current) use of oral hypoglycemic drugs; Z79.899 Other long term (current) drug therapy; Z88.0 Allergy status to penicillin; Z88.1 Allergy status to other antibiotic agents; Z88.5 Allergy status to narcotic agent; Z88.6 Allergy status to analgesic agent; Z88.8 Allergy status to other drugs, medicaments and biological substances; Z91.048 Other nonmedicinal substance allergy status; Z86.16 Personal history of COVID-19

== ENCOUNTER → 2023-10-11 | Outpatient (REF) | payer OTHER, MEDICAID ==
[~2023-10-11] MED LIST changes: +ALBU2.5V10 INH; +APPLCAP PO; +ERGO500029 PO; +GLOB31MI SC; +LANTINJ4 SC; +LEVO1TAB40 PO; +METF-723 PO; +STIO1AER IN
[2023-10-11 17:27] LABS: BASO % 0.1 % (0.0-1.0); EOS % 0.2 % (0.0-3.0); HEMATOCRIT 44.6 % (36.0-47.0); HEMOGLOBIN 14.2 g/dl (12.0-15.5); LYMPH # 2.2 10^3/uL (1.5-5.0); LYMPH % 18.3 % (24.0-44.0); MEAN CORPUSCULAR HEMOGLOBIN 29.9 pg (27.0-33.0); MEAN CORPUSCULAR HGB CONC 31.8 g/dl (32.0-36.5); MEAN CORPUSCULAR VOLUME 93.9 fl (80.0-96.0); MONO # 0.5 10^3/uL (0.0-0.8); MONO % 3.9 % (2.0-8.0); NEUTROPHILS # 9.1 10^3/uL (1.5-8.5); PLATELET COUNT, AUTOMATED 479 10^3/uL (150-450); RED BLOOD COUNT 4.75 10^6/uL (4.00-5.40)
[2023-10-11 17:48] LABS: ALBUMIN 2.7 G/DL (3.2-5.2); ALKALINE PHOSPHATASE 77 U/L (46-116); ALT/SGPT 22 U/L (7.0-40); AST/SGOT 13 U/L (<34); BILIRUBIN,TOTAL 0.8 MG/DL (0.3-1.2); BLOOD UREA NITROGEN 16 MG/DL (9-23); CALCIUM LEVEL 9.4 MG/DL (8.3-10.6); CARBON DIOXIDE LEVEL 35 MMOL/L (20-31); CHLORIDE LEVEL 100 MMOL/L (98-107); CREATININE FOR GFR 0.84 MG/DL (0.55-1.30); GLOMERULAR FILTRATION RATE > 60.0 (>45); GLUCOSE, FASTING 103 MG/DL (74-106); POTASSIUM SERUM 4.9 MMOL/L (3.5-5.1); SODIUM LEVEL 140 MMOL/L (136-145); TOTAL PROTEIN 5.6 G/DL (5.7-8.2)
== END ==
LOC: M LAB REF 16:37
PROVIDERS: ATTEND Nurse Practitioner Family
DX: J18.9 Pneumonia, unspecified organism (principal); R03.0 Elevated blood-pressure reading, without diagnosis of hypertension

== ENCOUNTER → 2023-11-07 | Outpatient (CLI) | payer MEDICARE, OTHER | LOC: M LAB 09:55 | PROVIDERS: ATTEND Nurse Practitioner Family | DX: J18.9 Pneumonia, unspecified organism (principal) ==

== ENCOUNTER → 2023-11-17 | Outpatient (REF) | payer OTHER ==
[2023-11-17 18:46] LABS: BASO % 0.5 % (0.0-1.0); EOS # 0.3 10^3/uL (0.0-0.5); EOS % 3.9 % (0.0-3.0); HEMOGLOBIN 13.8 g/dl (12.0-15.5); LYMPH # 2.6 10^3/uL (1.5-5.0); LYMPH % 31.8 % (24.0-44.0); MEAN CORPUSCULAR HEMOGLOBIN 29.9 pg (27.0-33.0); MEAN CORPUSCULAR HGB CONC 32.9 g/dl (32.0-36.5); MEAN CORPUSCULAR VOLUME 90.9 fl (80.0-96.0); MONO # 0.6 10^3/uL (0.0-0.8); MONO % 6.7 % (2.0-8.0); NEUTROPHILS # 4.7 10^3/uL (1.5-8.5); NEUTROPHILS % 56.9 % (36.0-66.0); PLATELET COUNT, AUTOMATED 333 10^3/uL (150-450); RED BLOOD COUNT 4.62 10^6/uL (4.00-5.40); WHITE BLOOD COUNT 8.3 10^3/uL (4.0-10.0)
== END ==
LOC: M LAB REF 18:16
PROVIDERS: ATTEND Nurse Practitioner Family
DX: D72.829 Elevated white blood cell count, unspecified (principal)

== ENCOUNTER → 2023-12-05 | Outpatient (CLI) | payer OTHER | LOC: M SOG 07:53 | PROVIDERS: ATTEND Orthopaedic Surgery | DX: M25.552 Pain in left hip (principal) ==

== ENCOUNTER 2024-01-12 08:49 | Day surgery (SDC) | payer OTHER ==
[~2024-01-12] VITALS: Ht 157.5 cm; Wt 79.6 kg
[~2024-01-12 08:49] MED LIST changes: +CEFUROXIME 1MG/0.1ML INTRACAMERAL INJ As Ordered ONE; +MIDAZOLAM INJ 2MG/2ML VIAL As Ordered ONE; +PHENYLEPHRINE 10% OPHTH SOL 5ML OS PRN; +fentaNYL 100 MCG/2 ML INJECTION As Ordered ONE
[2024-01-12] MEDS: LIDOCAINE 3.5 % 1ML OPHTH TOPICAL GEL OU ONE (09:50)
[2024-01-12] MEDS: OFLOXACIN 0.3 % (OCUFLOX) OPTH SOL 5ML OS ONE (09:50)
[2024-01-12] MEDS: ATROPINE SULFATE 1% OPHTH SOLN 2ML BTL OS SCH (10:06)
[2024-01-12] MEDS: PHENYLEPHRINE 2.5% OPHTH SOL 2ML OS SCH (10:07)
[2024-01-12] MEDS: TROPICAMIDE 1% OPHTH SOLN 15ML OS SCH (10:07)
[2024-01-12] MEDS: BSS IRRIG/VANCO(10MG)/TOBRA(5MG)/EPINEPH(1:1000-0.5CC)500ML BAG-ORONLY As Ordered ONE (10:59)
[2024-01-12] MEDS: MOXIFLOXACIN 0.6MG/0.4ML INTRAOCULAR SYRINGE As Ordered ONE (10:59)
[2024-01-12] MEDS: LIDOCAINE 1% SDV 5ML VIAL As Ordered ONE (11:02)
[2024-01-12 11:15] VITALS: BP 132/67; TEMP 96.8; O2SAT 92
== END 2024-01-12 11:40 | disposition home or self-care (01) ==
LOC: M SDC 08:49
PROVIDERS: ATTEND Ophthalmology
DX: E11.36 Type 2 diabetes mellitus with diabetic cataract (principal); H25.12 Age-related nuclear cataract, left eye; J44.9 Chronic obstructive pulmonary disease, unspecified; E78.00 Pure hypercholesterolemia, unspecified; G47.30 Sleep apnea, unspecified; G90.59 Complex regional pain syndrome I of other specified site; Z79.899 Other long term (current) drug therapy; G90.513 Complex regional pain syndrome I of upper limb, bilateral; Z88.8 Allergy status to other drugs, medicaments and biological substances; Z88.5 Allergy status to narcotic agent; Z88.6 Allergy status to analgesic agent; Z88.0 Allergy status to penicillin
CPT/HCPCS: 66984; J2250; J3010; V2632

== ENCOUNTER 2024-02-09 09:55 | Day surgery (SDC) | payer OTHER ==
[~2024-02-09] VITALS: Ht 160 cm; Wt 81.6 kg
[~2024-02-09 09:55] MED LIST changes: -CEFUROXIME 1MG/0.1ML INTRACAMERAL INJ As Ordered ONE; +CITA10TA6 PO; +DULO1CAP4 PO; +FLUT1BLS8; +LANTINJ4; +MELO7.5T35 PO; -MIDAZOLAM INJ 2MG/2ML VIAL As Ordered ONE; +PHENYLEPHRINE 10% OPHTH SOL 5ML OD PRN; -PHENYLEPHRINE 10% OPHTH SOL 5ML OS PRN; -fentaNYL 100 MCG/2 ML INJECTION As Ordered ONE
[2024-02-09] MEDS: ATROPINE SULFATE 1% OPHTH SOLN 2ML BTL OD SCH (11:03)
[2024-02-09] MEDS: TROPICAMIDE 1% OPHTH SOLN 15ML OD SCH (11:03)
[2024-02-09] MEDS: LIDOCAINE 3.5 % 1ML OPHTH TOPICAL GEL OU ONE (11:03)
[2024-02-09] MEDS: PHENYLEPHRINE 2.5% OPHTH SOL 2ML OD SCH (11:03)
[2024-02-09] MEDS: OFLOXACIN 0.3 % (OCUFLOX) OPTH SOL 5ML OD ONE (11:04)
[2024-02-09] MEDS ORDERED: fentaNYL 100 MCG/2 ML INJECTION As Ordered ONE (11:22)
[2024-02-09] MEDS ORDERED: MIDAZOLAM INJ 2MG/2ML VIAL As Ordered ONE (11:22)
[2024-02-09] MEDS: BSS IRRIG/VANCO(10MG)/TOBRA(5MG)/EPINEPH(1:1000-0.5CC)500ML BAG-ORONLY As Ordered ONE (12:08)
[2024-02-09] MEDS: LIDOCAINE 1% SDV 5ML VIAL As Ordered ONE (12:08)
[2024-02-09] MEDS: MOXIFLOXACIN 0.6MG/0.4ML INTRAOCULAR SYRINGE As Ordered ONE (12:08)
[2024-02-09 12:22] VITALS: BP 166/73; TEMP 97.7; O2SAT 100
== END 2024-02-09 12:34 | disposition home or self-care (01) ==
LOC: M SDC 09:55
PROVIDERS: ATTEND Ophthalmology
DX: H25.11 Age-related nuclear cataract, right eye (principal); E11.9 Type 2 diabetes mellitus without complications; G47.30 Sleep apnea, unspecified; I10 Essential (primary) hypertension; R60.0 Localized edema; K21.9 Gastro-esophageal reflux disease without esophagitis; F41.9 Anxiety disorder, unspecified; F33.9 Major depressive disorder, recurrent, unspecified; G43.909 Migraine, unspecified, not intractable, without status migrainosus; J44.9 Chronic obstructive pulmonary disease, unspecified; J45.909 Unspecified asthma, uncomplicated; G90.50 Complex regional pain syndrome I, unspecified; F13.10 Sedative, hypnotic or anxiolytic abuse, uncomplicated; Z95.5 Presence of coronary angioplasty implant and graft; Z88.8 Allergy status to other drugs, medicaments and biological substances; Z88.6 Allergy status to analgesic agent; Z88.1 Allergy status to other antibiotic agents; Z88.5 Allergy status to narcotic agent; Z91.040 Latex allergy status; Z88.0 Allergy status to penicillin; Z79.899 Other long term (current) drug therapy; Z79.51 Long term (current) use of inhaled steroids; Z79.4 Long term (current) use of insulin; Z79.84 Long term (current) use of oral hypoglycemic drugs
CPT/HCPCS: 66984; J2250; J3010; V2632

== ENCOUNTER → 2024-04-19 | Outpatient (CLI) | payer OTHER ==
[~2024-04-19] MED LIST changes: -PHENYLEPHRINE 10% OPHTH SOL 5ML OD PRN
== END ==
LOC: M RAD 11:58
PROVIDERS: ATTEND Nurse Practitioner Family
DX: M17.12 Unilateral primary osteoarthritis, left knee (principal)

== ENCOUNTER → 2024-04-26 | Outpatient (CLI) | payer OTHER | LOC: M RAD 14:34 | PROVIDERS: ATTEND Internal Medicine Pulmonary Disease | DX: Z87.891 Personal history of nicotine dependence (principal) ==

== ENCOUNTER → 2024-08-13 | Outpatient (REF) | payer OTHER ==
[~2024-08-13] MED LIST changes: -AZEL0.1S NARES; +AZEL137S8 NARES; +GLIP10TA15 PO; -GLIP10TA6 PO
[2024-08-13 18:56] LABS: BASO # 0.1 10^3/uL (0.0-0.2); BASO % 0.5 % (0.0-1.0); EOS # 0.2 10^3/uL (0.0-0.5); EOS % 1.7 % (0.0-3.0); HEMATOCRIT 45.9 % (36.0-47.0); HEMOGLOBIN 14.8 g/dl (12.0-15.5); LYMPH # 3.6 10^3/uL (1.5-5.0); LYMPH % 33.9 % (24.0-44.0); MEAN CORPUSCULAR HEMOGLOBIN 28.8 pg (27.0-33.0); MEAN CORPUSCULAR HGB CONC 32.2 g/dl (32.0-36.5); MEAN CORPUSCULAR VOLUME 89.3 fl (80.0-96.0); MONO # 0.6 10^3/uL (0.0-0.8); MONO % 5.3 % (2.0-8.0); NEUTROPHILS # 6.3 10^3/uL (1.5-8.5); NEUTROPHILS % 58.3 % (36.0-66.0); PLATELET COUNT, AUTOMATED 418 10^3/uL (150-450); RED BLOOD COUNT 5.14 10^6/uL (4.00-5.40); WHITE BLOOD COUNT 10.7 10^3/uL (4.0-10.0)
[2024-08-13 19:23] LABS: HEMOGLOBIN A1c 6.2 % (4.0-6.0)
[2024-08-13 19:26] LABS: ALBUMIN 4.3 G/DL (3.2-5.2); ALKALINE PHOSPHATASE 66 U/L (35-104); ALT/SGPT 20 U/L (7.0-40); AST/SGOT 19 U/L (<34); BILIRUBIN,DIRECT 0.5 MG/DL (<0.4); BILIRUBIN,TOTAL 1.5 MG/DL (0.3-1.2); BLOOD UREA NITROGEN 9 MG/DL (9-23); CALCIUM LEVEL 10.6 MG/DL (8.3-10.6); CARBON DIOXIDE LEVEL 29 MMOL/L (20-31); CHLORIDE LEVEL 101 MMOL/L (98-107); CHOLESTEROL LEVEL 136 MG/DL (<200); CHOLESTEROL RISK RATIO 2.41 (<5); CREATININE FOR GFR 0.97 MG/DL (0.55-1.30); GLOMERULAR FILTRATION RATE > 60.0 (>45); GLUCOSE, FASTING 153 MG/DL (74-106); HDL CHOLESTEROL 56.2 MG/DL (>40); LDL CHOLESTEROL 49.4 MG/DL (<100); NON-HDL-C 79.8 MG/DL; POTASSIUM SERUM 4.3 MMOL/L (3.5-5.1); SODIUM LEVEL 138 MMOL/L (136-145); TOTAL PROTEIN 7.4 G/DL (5.7-8.2); TRIGLYCERIDES LEVEL 152 MG/DL (<150)
[2024-08-13 19:28] LABS: THYROID STIMULATING HORMONE 0.444 uIU/ML (0.55-4.78)
== END ==
LOC: M LAB REF 17:12
PROVIDERS: ATTEND Nurse Practitioner Family
DX: K29.70 Gastritis, unspecified, without bleeding (principal); E11.9 Type 2 diabetes mellitus without complications

== ENCOUNTER → 2024-08-27 | Outpatient (CLI) | payer OTHER ==
[~2024-08-27] MED LIST changes: +GASTROGRAFIN SOLUTION 30ML As Ordered ONE; +ISOVUE-370 76% 100ML VIAL As Ordered ONE
== END ==
LOC: M RAD 09:47
PROVIDERS: ATTEND Nurse Practitioner Family
DX: L90.5 Scar conditions and fibrosis of skin (principal); R10.9 Unspecified abdominal pain
CPT/HCPCS: 74177; Q9963; Q9967

== ENCOUNTER → 2024-11-14 | Outpatient (REF) | payer MEDICARE ==
[~2024-11-14] MED LIST changes: +ALPR0.25 PO; +DULO1CAP6 PO; -GASTROGRAFIN SOLUTION 30ML As Ordered ONE; +HYDR-643 PO; -ISOVUE-370 76% 100ML VIAL As Ordered ONE; +PANT40TA29 PO
[2024-11-14 17:37] LABS: BASO # 0.1 10^3/uL (0.0-0.2); BASO % 0.8 % (0.0-1.0); BLOOD UREA NITROGEN 12 MG/DL (9-23); CALCIUM LEVEL 9.6 MG/DL (8.3-10.6); CARBON DIOXIDE LEVEL 33 MMOL/L (20-31); CHLORIDE LEVEL 98 MMOL/L (98-107); CREATININE FOR GFR 0.83 MG/DL (0.55-1.30); EOS # 0.3 10^3/uL (0.0-0.5); EOS % 3.9 % (0.0-3.0); GLOMERULAR FILTRATION RATE > 60.0 (>45); GLUCOSE, FASTING 193 MG/DL (74-106); HEMATOCRIT 39.3 % (36.0-47.0); HEMOGLOBIN 12.6 g/dl (12.0-15.5); LYMPH # 2.9 10^3/uL (1.5-5.0); LYMPH % 37.6 % (24.0-44.0); MEAN CORPUSCULAR HEMOGLOBIN 29.1 pg (27.0-33.0); MEAN CORPUSCULAR HGB CONC 32.1 g/dl (32.0-36.5); MEAN CORPUSCULAR VOLUME 90.8 fl (80.0-96.0); MONO # 0.5 10^3/uL (0.0-0.8); MONO % 6.1 % (2.0-8.0); NEUTROPHILS % 51.1 % (36.0-66.0); PLATELET COUNT, AUTOMATED 324 10^3/uL (150-450); POTASSIUM SERUM 4.6 MMOL/L (3.5-5.1); RED BLOOD COUNT 4.33 10^6/uL (4.00-5.40); SODIUM LEVEL 138 MMOL/L (136-145); WHITE BLOOD COUNT 7.7 10^3/uL (4.0-10.0)
[2024-11-14 17:40] LABS: THYROID STIMULATING HORMONE 0.648 uIU/ML (0.55-4.78)
== END ==
LOC: M LAB REF 16:53
PROVIDERS: ATTEND Nurse Practitioner Family
DX: Z01.818 Encounter for other preprocedural examination (principal); E11.9 Type 2 diabetes mellitus without complications; R89.1 Abnormal level of hormones in specimens from other organs, systems and tissues

== ENCOUNTER 2024-11-30 09:21 | Day surgery (SDC) | payer OTHER ==
[~2024-11-30] VITALS: Ht 157.5 cm; Wt 82.4 kg
[~2024-11-30 09:21] MED LIST changes: +VANC125C13 PO; -VANC125C3 PO
[2024-11-30] MEDS ORDERED: fentaNYL 100 MCG/2 ML INJECTION As Ordered ONE (10:26)
[2024-11-30] MEDS ORDERED: propofoL 200 MG/20 ML VIAL As Ordered ONE (10:46)
[2024-11-30 10:57] VITALS: TEMP 97.5
[2024-11-30 11:13] VITALS: BP 168/70; O2SAT 97
== END 2024-11-30 11:14 | disposition home or self-care (01) ==
LOC: M OPP 09:21
PROVIDERS: ATTEND Surgery
DX: K31.89 Other diseases of stomach and duodenum (principal); R10.13 Epigastric pain; G47.30 Sleep apnea, unspecified; Z88.0 Allergy status to penicillin; Z88.5 Allergy status to narcotic agent; Z88.8 Allergy status to other drugs, medicaments and biological substances; Z88.6 Allergy status to analgesic agent; Z88.1 Allergy status to other antibiotic agents; Z79.84 Long term (current) use of oral hypoglycemic drugs; Z79.899 Other long term (current) drug therapy; J44.9 Chronic obstructive pulmonary disease, unspecified; Z87.891 Personal history of nicotine dependence; R56.9 Unspecified convulsions
CPT/HCPCS: 43239; 88305; J3010

== ENCOUNTER → 2025-02-14 | Outpatient (REF) | payer MEDICARE ==
[~2025-02-14] MED LIST changes: +GLIP-318 PO; -GLIP5TAB20 PO; +METF-1113 PO; -METF-723 PO; +SEMA1PEN2 SC
[2025-02-14 18:37] LABS: CALCIUM LEVEL 10.1 MG/DL (8.3-10.6); CREATININE FOR GFR 0.82 MG/DL (0.55-1.30); GLOMERULAR FILTRATION RATE 80.8 (>45); PERCENT SATURATION 12.6 % (13.2-45.0); POTASSIUM SERUM 3.3 MMOL/L (3.5-5.1)
[2025-02-14 19:50] LABS: HEMOGLOBIN A1c 7.4 % (4.0-6.0)
== END ==
LOC: M LAB REF 17:46
PROVIDERS: ATTEND Pediatrics
DX: E11.9 Type 2 diabetes mellitus without complications (principal); R68.89 Other general symptoms and signs

== ENCOUNTER 2025-02-21 10:27 | Day surgery (SDC) | payer MEDICARE, MEDICAID ==
[~2025-02-21] VITALS: Ht 157.5 cm; Wt 73.9 kg
[2025-02-21] MEDS ORDERED: propofoL 500 MG/50 ML VIAL As Ordered ONE (12:03)
[2025-02-21] MEDS ORDERED: LIDOCAINE 2% 100MG/5ML SDV (FOR ANES.) As Ordered ONE (12:03)
[2025-02-21 12:14] VITALS: TEMP 98
[2025-02-21 12:34] VITALS: BP 139/63; O2SAT 99
== END 2025-02-21 12:39 | disposition home or self-care (01) ==
LOC: M OPP 10:27
PROVIDERS: ATTEND Surgery
DX: Z12.11 Encounter for screening for malignant neoplasm of colon (principal); K21.9 Gastro-esophageal reflux disease without esophagitis; Z86.0100 Personal history of colon polyps, unspecified; E11.9 Type 2 diabetes mellitus without complications; J44.9 Chronic obstructive pulmonary disease, unspecified; N39.3 Stress incontinence (female) (male); E78.00 Pure hypercholesterolemia, unspecified; G47.30 Sleep apnea, unspecified; G90.59 Complex regional pain syndrome I of other specified site; Z79.84 Long term (current) use of oral hypoglycemic drugs; Z79.85 Long-term (current) use of injectable non-insulin antidiabetic drugs; Z79.899 Other long term (current) drug therapy; Z88.6 Allergy status to analgesic agent; Z88.1 Allergy status to other antibiotic agents; Z88.8 Allergy status to other drugs, medicaments and biological substances; Z88.5 Allergy status to narcotic agent; Z88.0 Allergy status to penicillin; Z90.710 Acquired absence of both cervix and uterus; Z87.891 Personal history of nicotine dependence

== ENCOUNTER 2025-04-09 16:14 | Inpatient (IN) | payer MEDICARE, MEDICAID ==
[~2025-04-09] VITALS: Ht 160 cm; Wt 79.8 kg
[2025-04-09 17:49] LABS: VENOUS BASE EXCESS 12.0 (-2.0-2.0); VENOUS HCO3 34.2 MMOL/L (23.0-27.0); VENOUS O2 SATURATION 61.1 % (60.0-80.0); VENOUS PARTIAL PRESSURE CO2 35.7 mmHg (38.0-50.0); VENOUS PARTIAL PRESSURE O2 27.8 mmHg (30.0-50.0); VENOUS PH 7.599 UNITS (7.330-7.430); VENOUS STANDARD HCO3 34.7 MMOL/L; VENOUS TOTAL CO2 35.3 MMOL/L (24.0-28.0)
[2025-04-09 17:53] LABS: BASO # 0.0 10^3/uL (0.0-0.2); BASO % 0.3 % (0.0-1.0); EOS # 0.0 10^3/uL (0.0-0.5); EOS % 0.1 % (0.0-3.0); LYMPH # 1.7 10^3/uL (1.5-5.0); LYMPH % 13.8 % (24.0-44.0); MONO # 0.6 10^3/uL (0.0-0.8); MONO % 4.9 % (2.0-8.0); NEUTROPHILS # 9.7 10^3/uL (1.5-8.5); NEUTROPHILS % 80.5 % (36.0-66.0); PLATELET COUNT, AUTOMATED 465 10^3/uL (150-450)
[2025-04-09 18:26] LABS: ACETONE/KETONE 0.44 MMOL/L (0.02-0.27)
[2025-04-09 18:28] LABS: OSMOLALITY SERUM 292.0 MOSM/KG (280-301)
[2025-04-09 18:30] LABS: ALT/SGPT 18.0 U/L (7.0-40); AST/SGOT 25.0 U/L (<34); CALCIUM LEVEL 10.3 MG/DL (8.3-10.6); CARBON DIOXIDE LEVEL 34.0 MMOL/L (20-31); CHLORIDE LEVEL 82.0 MMOL/L (98-107); CREATININE FOR GFR 1.25 MG/DL (0.55-1.30); GLOMERULAR FILTRATION RATE 48.7 (>45); POTASSIUM SERUM 2.0 MMOL/L (3.5-5.1); SODIUM LEVEL 134.0 MMOL/L (136-145)
[2025-04-09 19:02] LABS: ESTIMATED AVERAGE GLUCOSE 157.0 MG/DL (60-110)
[2025-04-09] MEDS: ONDANSETRON 4MG ORAL DISINTEGRATING TAB PO ONE (19:40)
[2025-04-09] MEDS: KCL 10MEQ/100ML SWI (KRUN) 10 MEQ in IV 1 EA IV ONE (19:55)
[2025-04-09 20:20] LABS: MAGNESIUM LEVEL 1.6 MG/DL (1.8-2.4)
[2025-04-09] MEDS: MAG SULF 1GM/100ML (MAG RUN) 1 GM in IV 1 EA IV ONE (20:54)
[2025-04-09] MEDS: POTASSIUM CHLORIDE 10MEQ SR TABLET PO ONE (20:55)
[2025-04-09] MEDS ORDERED: ISOVUE-370 76% 100 ML VIAL As Ordered ONE (21:21)
[2025-04-09 22:13] LABS: INR 0.97
[2025-04-09] MEDS ORDERED: ALPR0.5T3 PO (23:34)
[2025-04-09] MEDS ORDERED: HYDR50TA70 PO (23:34)
[2025-04-09] MEDS ORDERED: SUCR1ORA PO (23:38)
[2025-04-09] MEDS ORDERED: HOME MED LIST COMPLETE! XX SCH (23:40)
[2025-04-09] MEDS ORDERED: MOM 30 ML SUSPENSION UDC PO PRN (23:55)
[2025-04-09] MEDS ORDERED: MAALOX 30 ML SUSP *UDC PO PRN (23:55)
[2025-04-09] MEDS ORDERED: ACETAMINOPHEN 325 MG TAB PO PRN (23:55)
[2025-04-09] MEDS ORDERED: ALBUTEROL 90 MCG/ACT 8 GM HFA INHALER INH PRN (23:55)
[2025-04-10 00:51] LABS: PLATELET COUNT, AUTOMATED 395 10^3/uL (150-450)
[2025-04-10 01:22] LABS: ALT/SGPT 14.0 U/L (7.0-40); AST/SGOT 17.0 U/L (<34); CALCIUM LEVEL 9.2 MG/DL (8.3-10.6); CARBON DIOXIDE LEVEL 36.0 MMOL/L (20-31); CHLORIDE LEVEL 84.0 MMOL/L (98-107); CREATININE FOR GFR 1.16 MG/DL (0.55-1.30); GLOMERULAR FILTRATION RATE 53.3 (>45); MAGNESIUM LEVEL 2.0 MG/DL (1.8-2.4); PHOSPHORUS LEVEL 3.6 MG/DL (2.4-5.1); POTASSIUM SERUM 2.1 MMOL/L (3.5-5.1); SODIUM LEVEL 133.0 MMOL/L (136-145)
[2025-04-10 01:44] LABS: KETONE, URINE AUTO RFX NEGATIVE (NEGATIVE); NITRITE, URINE AUTO RFX NEGATIVE (NEGATIVE); RBC, URINE AUTO RFX 15 /HPF (0-3); SQUAM EPITHELIAL CELL UR AURFX 14 /HPF (0-6)
[2025-04-10 01:48] LABS: LEUKOCYTE ESTERASE UR AUTO RFX 3+ (NEGATIVE); WBC, URINE AUTO RFX 127 /HPF (0-3)
[2025-04-10] MEDS: KCL 10MEQ/100ML SWI (KRUN) 10 MEQ in IV 1 EA IV SCH (01:57)
[2025-04-10] MEDS ORDERED: DEXTROSE 50% 50 ML SYRINGE IV PRN (06:25)
[2025-04-10] MEDS ORDERED: GLUCOSE 4 GM CHEW PO PRN (06:25)
[2025-04-10] MEDS ORDERED: GLUCAGON INJ 1 MG VIAL SC PRN (06:25)
[2025-04-10 07:29] LABS: PLATELET COUNT, AUTOMATED 386 10^3/uL (150-450)
[2025-04-10] MEDS ORDERED: INSULIN LISPRO (NovoLOG) PER UNIT SC SCH ×2 (07:30→21:00)
[2025-04-10 07:54] LABS: CALCIUM LEVEL 9.3 MG/DL (8.3-10.6); CARBON DIOXIDE LEVEL 37.0 MMOL/L (20-31); CHLORIDE LEVEL 85.0 MMOL/L (98-107); CREATININE FOR GFR 1.2 MG/DL (0.55-1.30); GLOMERULAR FILTRATION RATE 51.2 (>45); MAGNESIUM LEVEL 2.0 MG/DL (1.8-2.4); POTASSIUM SERUM 2.4 MMOL/L (3.5-5.1); SODIUM LEVEL 135.0 MMOL/L (136-145)
[2025-04-10] MEDS: KCL 40MEQ in NS 1000ML 1,000 ML IV SCH (08:21)
[2025-04-10] MEDS: PANTOPRAZOLE 40MG VIAL IV SCH (08:21)
[2025-04-10] MEDS: DOCUSATE SODIUM 100 MG CAPSULE PO SCH (08:21)
[2025-04-10] MEDS: SUCRALFATE SUSP 1GM/10ML UD PO SCH (08:21)
[2025-04-10] MEDS: POTASSIUM CHLORIDE 10% LIQ 20MEQ/15ML UDC PO ONE (09:43)
[2025-04-10 13:48] LABS: CALCIUM LEVEL 8.7 MG/DL (8.3-10.6); CARBON DIOXIDE LEVEL 30.0 MMOL/L (20-31); CHLORIDE LEVEL 89.0 MMOL/L (98-107); CREATININE FOR GFR 1.16 MG/DL (0.55-1.30); GLOMERULAR FILTRATION RATE 53.3 (>45); POTASSIUM SERUM 2.4 MMOL/L (3.5-5.1); SODIUM LEVEL 135.0 MMOL/L (136-145)
[2025-04-10] MEDS: POTASSIUM CHLORIDE 10MEQ SR TABLET PO SCH (14:17)
[2025-04-10 15:52] LABS: CALCIUM LEVEL 8.8 MG/DL (8.3-10.6); CARBON DIOXIDE LEVEL 37.0 MMOL/L (20-31); CHLORIDE LEVEL 92.0 MMOL/L (98-107); CREATININE FOR GFR 1.21 MG/DL (0.55-1.30); GLOMERULAR FILTRATION RATE 50.7 (>45); POTASSIUM SERUM 3.6 MMOL/L (3.5-5.1); SODIUM LEVEL 138.0 MMOL/L (136-145)
[2025-04-10] MEDS ORDERED: LORazepam 0.5 MG TAB PO PRN (18:15)
[2025-04-10 18:30] VITALS: BP 113/55; TEMP 97.3; O2SAT 94
[2025-04-10 20:00] VITALS: BP 127/64; TEMP 98; O2SAT 100
[2025-04-10] MEDS: ALPRAZolam 0.5 MG TAB PO PRN (20:55)
[2025-04-11 04:00] VITALS: BP 110/56; TEMP 97.6; O2SAT 97
[2025-04-11 06:31] LABS: CALCIUM LEVEL 8.3 MG/DL (8.3-10.6); CARBON DIOXIDE LEVEL 34.0 MMOL/L (20-31); CHLORIDE LEVEL 96.0 MMOL/L (98-107); CREATININE FOR GFR 1.15 MG/DL (0.55-1.30); GLOMERULAR FILTRATION RATE 53.9 (>45); POTASSIUM SERUM 2.7 MMOL/L (3.5-5.1); SODIUM LEVEL 144.0 MMOL/L (136-145)
[2025-04-11 07:50] LABS: PLATELET COUNT, AUTOMATED 282 10^3/uL (150-450)
[2025-04-11 08:16] VITALS: BP 115/59; TEMP 97.6; O2SAT 92
[2025-04-11 08:21] LABS: LDH LACTATE DEHYDROGENASE 150.0 U/L (120-246)
[2025-04-11] MEDS: POTASSIUM CHLORIDE 10MEQ SR TABLET PO SCH (08:24)
[2025-04-11] MEDS: HEPARIN SOD 5000 UNITS/ML 1 ML VIAL/SYRINGE SC SCH (08:28)
[2025-04-11 08:31] LABS: CALCIUM LEVEL 8.0 MG/DL (8.3-10.6); CARBON DIOXIDE LEVEL 30.0 MMOL/L (20-31); CHLORIDE LEVEL 101.0 MMOL/L (98-107); CREATININE FOR GFR 1.12 MG/DL (0.55-1.30); GLOMERULAR FILTRATION RATE 55.6 (>45); POTASSIUM SERUM 3.3 MMOL/L (3.5-5.1); SODIUM LEVEL 142.0 MMOL/L (136-145)
[2025-04-11 08:55] LABS: HEPATITIS C VIRUS ABY INDEX 0.13 INDEX (<0.8)
[2025-04-11] MEDS ORDERED: IPRATROPIUM 0.5 MG/ALBUTEROL 2.5 MG INH SOL UD 3 ML NEB PRN (08:55)
[2025-04-11 12:25] VITALS: BP 100/56; TEMP 97.9; O2SAT 97
[2025-04-11 12:49] LABS: PLATELET COUNT, AUTOMATED 282 10^3/uL (150-450)
[2025-04-11 13:19] LABS: CALCIUM LEVEL 8.1 MG/DL (8.3-10.6); CARBON DIOXIDE LEVEL 30.0 MMOL/L (20-31); CHLORIDE LEVEL 99.0 MMOL/L (98-107); CREATININE FOR GFR 0.99 MG/DL (0.55-1.30); GLOMERULAR FILTRATION RATE 64.5 (>45); POTASSIUM SERUM 3.4 MMOL/L (3.5-5.1); SODIUM LEVEL 138.0 MMOL/L (136-145)
[2025-04-11 15:47] LABS: CALCIUM LEVEL 8.3 MG/DL (8.3-10.6); CARBON DIOXIDE LEVEL 31.0 MMOL/L (20-31); CHLORIDE LEVEL 99.0 MMOL/L (98-107); CREATININE FOR GFR 1.08 MG/DL (0.55-1.30); GLOMERULAR FILTRATION RATE 58.1 (>45); POTASSIUM SERUM 3.8 MMOL/L (3.5-5.1); SODIUM LEVEL 139.0 MMOL/L (136-145)
[2025-04-11 16:45] VITALS: BP 110/59; TEMP 98; O2SAT 97
[2025-04-11] MEDS: INSULIN LISPRO (NovoLOG) PER UNIT SC SCH ×2 (18:09→21:00)
[2025-04-11 20:29] VITALS: BP 110/56; TEMP 97.8; O2SAT 97
[2025-04-12 04:00] VITALS: BP 122/58; TEMP 98; O2SAT 97
[2025-04-12 07:08] LABS: PLATELET COUNT, AUTOMATED 316 10^3/uL (150-450)
[2025-04-12 07:35] LABS: CALCIUM LEVEL 8.5 MG/DL (8.3-10.6); CARBON DIOXIDE LEVEL 30.0 MMOL/L (20-31); CHLORIDE LEVEL 97.0 MMOL/L (98-107); CREATININE FOR GFR 0.96 MG/DL (0.55-1.30); GLOMERULAR FILTRATION RATE 66.9 (>45); POTASSIUM SERUM 3.1 MMOL/L (3.5-5.1); SODIUM LEVEL 137.0 MMOL/L (136-145)
[2025-04-12] MEDS: KCL 10MEQ/100ML SWI (KRUN) 10 MEQ in IV 1 EA IV SCH (08:26)
[2025-04-12] MEDS: POTASSIUM CHLORIDE 10% LIQ 20MEQ/15ML UDC PO ONE (08:28)
[2025-04-12 08:34] LABS: MAGNESIUM LEVEL 1.7 MG/DL (1.8-2.4)
[2025-04-12 08:35] LABS: IRON (FE) 82.0 UG/DL (50-170); PERCENT SATURATION 36.9 % (13.2-45.0)
[2025-04-12 08:37] LABS: VITAMIN B12 LEVEL 176.0 PG/ML (211-911)
[2025-04-12] MEDS ORDERED: POTA-298 PO ×2 (13:43→13:48)
[2025-04-12] MEDS ORDERED: B-12100010 PO (15:07)
[2025-04-12] MEDS ORDERED: FOLI400T13 PO (15:07)
[2025-04-12] MEDS: MAG SULF 1GM/100ML (MAG RUN) 1 GM in IV 1 EA IV SCH (15:24)
[2025-04-12] MEDS: CYANOCOBALAMIN 500 MCG TAB PO ONE (16:13)
[2025-04-12] MEDS: FOLIC ACID 1 MG TAB PO ONE (16:14)
[2025-04-12] MEDS: MAG SULF 1GM/100ML (MAG RUN) 1 GM in IV 1 EA IV ONE (16:23)
[2025-04-12 17:07] LABS: CALCIUM LEVEL 8.1 MG/DL (8.3-10.6); CARBON DIOXIDE LEVEL 26.0 MMOL/L (20-31); CHLORIDE LEVEL 101.0 MMOL/L (98-107); CREATININE FOR GFR 1.02 MG/DL (0.55-1.30); GLOMERULAR FILTRATION RATE 62.2 (>45); POTASSIUM SERUM 3.6 MMOL/L (3.5-5.1); SODIUM LEVEL 136.0 MMOL/L (136-145)
[2025-04-12 17:09] VITALS: BP 110/56; TEMP 97.9; O2SAT 97
== END 2025-04-12 17:35 | disposition home or self-care (01) | DRG 641 ==
LOC: M ED 16:14 → M ED INP 23:51 → M MS4PR 04-10 18:25
PROVIDERS: ADMIT Student in an Organized Health Care Education/Training Program; ATTEND Student in an Organized Health Care Education/Training Program
DX: E87.6 Hypokalemia (principal); Z66 Do not resuscitate; E87.1 Hypo-osmolality and hyponatremia; E87.20 Acidosis, unspecified; E11.9 Type 2 diabetes mellitus without complications; E66.9 Obesity, unspecified; E87.8 Other disorders of electrolyte and fluid balance, not elsewhere classified; E78.5 Hyperlipidemia, unspecified; K21.9 Gastro-esophageal reflux disease without esophagitis; J44.9 Chronic obstructive pulmonary disease, unspecified; F17.210 Nicotine dependence, cigarettes, uncomplicated; K29.70 Gastritis, unspecified, without bleeding; E80.6 Other disorders of bilirubin metabolism; E86.0 Dehydration; E83.42 Hypomagnesemia; E53.8 Deficiency of other specified B group vitamins; T45.8X5A Adverse effect of other primarily systemic and hematological agents, initial encounter; R11.2 Nausea with vomiting, unspecified; R19.7 Diarrhea, unspecified; Z79.85 Long-term (current) use of injectable non-insulin antidiabetic drugs; Z79.899 Other long term (current) drug therapy; Z88.0 Allergy status to penicillin; Z88.1 Allergy status to other antibiotic agents; Z88.5 Allergy status to narcotic agent; Z88.6 Allergy status to analgesic agent; Z88.8 Allergy status to other drugs, medicaments and biological substances; Z90.49 Acquired absence of other specified parts of digestive tract

== ENCOUNTER → 2025-04-19 | Outpatient (REF) | payer MEDICARE, MEDICAID ==
[~2025-04-19] MED LIST changes: +ALPR0.5T3 PO; +B-12100010 PO; +FOLI400T13 PO; +HYDR50TA70 PO; +POTA-298 PO; +SUCR1ORA PO
== END ==
LOC: M LAB REF 17:05
PROVIDERS: ATTEND Student in an Organized Health Care Education/Training Program
DX: N39.0 Urinary tract infection, site not specified (principal)

== ENCOUNTER → 2025-04-22 | Outpatient (REF) | payer MEDICARE, MEDICAID ==
[2025-04-22 17:49] LABS: BASO # 0.1 10^3/uL (0.0-0.2); BASO % 0.5 % (0.0-1.0); EOS # 0.1 10^3/uL (0.0-0.5); EOS % 1.3 % (0.0-3.0); LYMPH # 2.7 10^3/uL (1.5-5.0); LYMPH % 28.3 % (24.0-44.0); MONO # 0.4 10^3/uL (0.0-0.8); MONO % 4.0 % (2.0-8.0); NEUTROPHILS # 6.3 10^3/uL (1.5-8.5); NEUTROPHILS % 65.4 % (36.0-66.0); PLATELET COUNT, AUTOMATED 399 10^3/uL (150-450)
[2025-04-22 17:53] LABS: CALCIUM LEVEL 10.0 MG/DL (8.3-10.6); CARBON DIOXIDE LEVEL 27.0 MMOL/L (20-31); CHLORIDE LEVEL 100.0 MMOL/L (98-107); CREATININE FOR GFR 1.2 MG/DL (0.55-1.30); GLOMERULAR FILTRATION RATE 51.2 (>45); POTASSIUM SERUM 4.7 MMOL/L (3.5-5.1); SODIUM LEVEL 139.0 MMOL/L (136-145)
== END ==
LOC: M LAB REF 16:37
PROVIDERS: ATTEND Student in an Organized Health Care Education/Training Program
DX: N39.0 Urinary tract infection, site not specified (principal); E87.6 Hypokalemia; R53.83 Other fatigue; D64.9 Anemia, unspecified

== ENCOUNTER → 2025-06-13 | Outpatient (REF) | payer MEDICARE, MEDICAID ==
[~2025-06-13] MED LIST changes: -FOLI0.8T3 PO; +FOLI800T5 PO; -METF-1113 PO; +METF-1201 PO; +METH-1100 PO; -METH-855 PO
[2025-06-13 14:20] LABS: CREATININE, URINE 83.6 MG/DL
[2025-06-13 14:22] LABS: MALB URINE SIEMENS 7.0 MG/L; MAU/CREAT RATIO 8.3 MCG/MG (0.0-30.0)
== END ==
LOC: M LAB REF 12:06
PROVIDERS: ATTEND Nurse Practitioner Family
DX: E11.9 Type 2 diabetes mellitus without complications (principal)

== ENCOUNTER → 2025-07-12 | Outpatient (CLI) | payer MEDICARE, MEDICAID | LOC: M RAD 14:37 | PROVIDERS: ATTEND Nurse Practitioner Family | DX: R79.89 Other specified abnormal findings of blood chemistry (principal) ==

== ENCOUNTER → 2025-09-12 | Outpatient (REF) | payer MEDICARE, MEDICAID ==
[2025-09-12 15:07] LABS: FREE T4 1.4 NG/DL (0.89-1.76)
[2025-09-12 15:08] LABS: VITAMIN B12 LEVEL 282.0 PG/ML (211-911)
[2025-09-12 15:11] LABS: TOTAL 25(OH) VITAMIN D 74.7 NG/ML (20.0-100.0); TOTAL T3 113.0 NG/DL (60.0-181.0)
[2025-09-12 15:40] LABS: ESTIMATED AVERAGE GLUCOSE 235.0 MG/DL (60-110)
== END ==
LOC: M LAB REF 13:47
PROVIDERS: ATTEND Nurse Practitioner Family
DX: E05.90 Thyrotoxicosis, unspecified without thyrotoxic crisis or storm (principal); E11.42 Type 2 diabetes mellitus with diabetic polyneuropathy; E55.9 Vitamin D deficiency, unspecified